=== PATIENT | female | born 2005 | race Caucasian/White ===

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

== ENCOUNTER → 2023-04-01 | Outpatient (CLI) | payer BC, SELFPAY | END | disposition home or self-care (01) | PROVIDERS: Visit Provider Advanced Practice Midwife | DX: O91.119 Abscess of breast associated with pregnancy, unspecified trimester (principal); Z3A.00 Weeks of gestation of pregnancy not specified | CPT/HCPCS: 87070; 87205 ==

== ENCOUNTER 2023-04-28 13:43 | Emergency (ER) | payer BC, SELFPAY ==
[2023-04-28 13:43] VITALS: BP 119/75; PULSE 74; RESP 18; TEMP 36.6; O2SAT 100; BMI 33.6
== END 2023-04-28 14:23 | disposition left against medical advice (07) ==
LOC: ED 14:28
DX: M79.646 Pain in unspecified finger(s) (principal)

== ENCOUNTER 2023-05-12 16:30 | Emergency (ER) | payer BC, SELFPAY ==
[2023-05-12 16:32] VITALS: BP 129/81; PULSE 88; RESP 16; TEMP 36.2; O2SAT 98; BMI 33.1
--- NOTE | 2023-05-12 16:59 | EX.ED.DYSGE1 ---
HPI History of Present Illness Chief Complaint: Dizziness Informant: patient Onset/Context/Timing Onset: Days (3) Context: Sudden Onset Timing: Intermittent and Lasts (Several minutes) Quality: Spinning Location: Head Worsened by: In the evening Relieved by: Laying down Narrative Narrative: Patient presents with dizziness that has been intermittent over the last 3 days. Patient states it lasts for several minutes when it comes on. Patient describes it as a spinning sensation. Patient states it is worse in the evening. Patient states it is better whenever she lays down. Patient states she has an chiara on her phone that checks her heart rate. Patient states that when she got dizzy last night, her heart rate was 128. Patient denies any fevers or chills. Patient does admit to some pain in her right ear. Patient denies any sore throat or rhinorrhea. Patient denies any chest pain or shortness of breath. [facility] Medical History Anxiety Home Medications levonorgestrel 21 mcg/24 hours (8 yrs) 52 mg intrauterine device (Mirena) 1 device intrauterine ONCE 06/13/20 [History Last Taken Unknown] loratadine 10 mg tablet (Allergy Relief (loratadine)) 20 mg PO BID 10/08/22 [History Last Taken Unknown] omeprazole magnesium 20 mg capsule,delayed release (Acid Director [employer] Software [employer] (omeprazole)) 20 mg PO DAILY 10/08/22 [History Last Taken Unknown] Allergy/AdvReac Type Severity Reaction Status Date / Time Latex, Natural Rubber Allergy Mild Rash Verified 05/12/23 16:34 Family History Grandfather Lupus CVA (cerebral vascular accident) Other Family history of narcolepsy Social History Smoking Status: Never smoker alcohol intake: former details: occsasionally substance use type: former substance user and marijuana frequency: 3-4 times per week additional social history: 11th grade [employer] ROS ROS ED Constitutional Constitutional ED: Denies chills or fever(s) Eyes Eyes: Denies blurry vision or change in vision ENT ENT ED: Reports ear pain right; Denies rhinorrhea or sore throat Cardiovascular Cardiovascular: Denies chest pain or palpitations Respiratory/Chest Respiratory/Chest: Denies cough or dyspnea Gastrointestinal Gastrointestinal: Denies nausea or vomiting Genitourinary Genitourinary ED: Denies dysuria or hematuria Musculoskeletal Musculoskeletal: Denies back pain or neck pain Integumentary Denies abscess or rash Neurologic Neurologic: Denies headache(s) or weakness Allergic/Immunologic Allergic/Immunologic ED: Denies mouth swelling or urticaria EXAM Physical Exam Const Vital Signs: 05/12/23 16:32 05/12/23 16:39 Temperature 97.1 F L Temperature Source Temporal Pulse Rate 88 Respiratory Rate 16 Respiratory Pattern Normal Blood Pressure 129/81 H Blood Pressure Mean 97 Pulse Ox 98 Oxygen Delivery Method Room Air Positive well nourished and well developed General Appearance ED: well developed HEENT Reports moist mucous membranes Eyes PERRL and EOMs intact bilaterally Eyes Narrative: There is no nystagmus noted. Neck supple and no JVD Resp normal respiratory effort and clear to auscultation bilaterally Cardio regular rate, regular rhythm and no murmurs GI normal to inspection, nondistended, normoactive bowel sounds and non-tender Palpation: soft Extremity normal to inspection General Extremety ED: Negative for edema or tenderness General Extremity: Negative for edema Neuro oriented x3, CN's II-XII intact bilaterally and no sensory deficits noted Sensorium / Orientation: alert Motor Exam: strength 5/5 throughout Psych mental status grossly normal Skin no rashes or lesions noted MDM MDM MDM Narrative Medical decision making narrative: Differential diagnosis includes electrolyte abnormality, acute kidney injury, anemia, vertigo, and labyrinthitis. CBC will be obtained to assess for leukocytosis and anemia. Basic metabolic profile will be obtained to assess for electrolyte abnormality and renal function. Urinalysis will be obtained to assess for urinary tract infection. Urine hCG will be obtained to assess for . Treatment and Re-Evaluation :: Patient was ordered IV fluids. Patient did not want any laboratory or IVs done at this time. Patient states she wants to go home and rest. Patient was instructed to drink plenty of fluids. Patient was instructed to follow-up with her primary care physician for further evaluation. Patient was instructed return if worse in any way. Patient understood and was agreeable with the plan. All questions were answered. Discharge Plan Triage Chief Complaint: Dizziness ED Provider: Deandre Upton Dx/Rx/DC Orders Clinical Impression: Dizziness Instructions: ED Dizziness, Uncertain Cause Prescriptions: No Action levonorgestrel 20 mcg/24 hours (5 yrs) 52 mg intrauterine device 20 mcg/24 hours (5 yrs) 52 mg intrauterine device 1 device intrauterine ONCE Rx Instructions: as a single dose loratadine [Allergy Relief (loratadine)] 10 mg tablet 20 mg PO BID omeprazole magnesium [Acid Director Of Software Development (omeprazole)] 20 mg capsule,delayed release(DR/EC) 20 mg PO DAILY Primary Care Provider: Care Physician,No Primary Referrals: Care Physician,No Primary [Primary Care Provider] - Disposition Disposition: Home, Self Care Discharge Date/Time: 05/12/23 17:17
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
== END 2023-05-12 17:17 | disposition home or self-care (01) ==
PROVIDERS: Emergency Provider Emergency Medicine; Visit Provider Emergency Medicine
DX: R42 Dizziness and giddiness (principal); Z79.3 Long term (current) use of hormonal contraceptives
CPT/HCPCS: 99281; 99282

== ENCOUNTER → 2023-08-19 | Outpatient (CLI) | payer BC, SELFPAY | END | disposition home or self-care (01) | LOC: LABSPEC 15:11 | PROVIDERS: Referring Provider Obstetrics & Gynecology; Visit Provider Obstetrics & Gynecology | DX: R30.0 Dysuria (principal) | CPT/HCPCS: 87077; 87086; 87088; 87186 ==

== ENCOUNTER → 2023-08-27 | Outpatient (CLI) | payer BC, SELFPAY ==
--- NOTE | 2023-08-27 16:38 | US_ITS ---
STUDY: ULTRASOUND OF THE FEMALE PELVIS - LIMITED REASON FOR EXAM: Female, 17 years old pelvic pain TECHNIQUE: Transabdominal and Transvaginal TECHNICAL QUALITY: Adequate. COMPARISON: 10/16/2022 FINDINGS: The uterus is anteverted and is in a midline position. The uterus measures 8.1 x 5.3 x 3.6 cm. Normal uterine cervix. The endometrium measures 6 mm in thickness, and is hyperechoic. There is no demonstrated endometrial mass. There is no demonstrated myometrial mass. Intrauterine device within the endometrium. The right ovary measures 3.9 x 3.2 x 3.7 cm. 3.2 cm round, anechoic mass with increased transmission consistent with a corpus luteum cyst. There is no visualized right adnexal mass or complex lesion. There is normal arterial and normal venous vascularity. The left ovary measures 3.0 x 1.9 x 1.8 cm. There is no left ovarian cyst or ovarian mass. There is no visualized left adnexal mass or complex lesion. There is normal arterial and normal venous vascularity. There is minimal fluid in the cul-de-sac. US/Transvaginal Non- IMPRESSION: 3.2 cm right ovarian corpus luteum cyst. Electronically Signed: Portillo Wilkes MD at 19:46 EST ,
--- OUTSIDE RECORDS SUMMARY | 2023-08-27 17:14 | XMS RPT_ITS | CCD ---
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 Name Role Phone Benjaminl, Nilton M Primary Care Provider [phone] PLAYL, NILTON M Primary Care Unavailable PLAYL, NILTON M Primary Care Unavailable JESSICA DEAN Referring Unavailable PLAYL, NILTON M Primary Care Unavailable ANGELA BORRERO Attending Unavailable PLAYL, NILTON Primary Care Unavailable Playl Nilton YBARRA Primary Care Provider REFERRED, SELF Attending Unavailable REFERRED, SELF Referring Unavailable PLAYL, NILTON M Primary Care Unavailable REFERRED, SELF Referring Unavailable PLAYL, NILTON M Primary Care Unavailable KITA SAXENA Attending Unavailable JESSICA DEAN Referring Unavailable PLAYL, NILTON M Primary Care Unavailable JESSICA DEAN Attending Unavailable JESSICA DEAN Attending Unavailable REFERRED, SELF Referring Unavailable PLAYL, NILTON M Primary Care Unavailable JESSICA DEAN Attending Unavailable REFERRED, SELF Referring Unavailable PLAYL, NILTON M Primary Care Unavailable Playl, Nilton Primary Care Provider Becky Addison APRN.CNP Primary Care Provider Generic Provider , No Assigned Pcp Primary Car e Provider Unavailable FROYLAN SAHNI Attending Unavailable GENERIC PROVIDER, NO ASSIGNED PCP Primary Care Unavailable REKHA HICKS Attending Unavailable PLAYL, NILTON M Primary Care Unavailable PLAYL, NILTON M Referring Unavailable REKHA HICKS Attending Unavailable PLAYL, NILTON M Primary Care Unavailable PLAYL, NILTON M Attending Unavailable PLAYL, NILTON M Primary Care Unavailable BECKY ADDISON Primary Care Unavailable DINA ANGELA Primary Care Unavailable PLAYL, NILTON M Primary Care Unavailable PLAYL, NILTON M Attending Unavailable PLAYL, NILTON M Primary Care Unavailable Allergies Allergy Classification Reported Allergen(s) Allergy Type Date of Onset Reaction(s) Facility (11 sources) Latex; Translations: [LATEX] Drug Allergy 2 Hives, Itching, Rash [facility] (7 sources) Sertraline; Translations: [SERTRALINE] Drug Allergy 3 Hives [facility] Work Phone: (4 sources) Latex Allergy to substance 2 Hives, [address] [facility] Medications Current Medications Medication Drug Class(es) Dates Sig (Normalized) Sig (Original) azithromycin 500 mg oral tablet (1 source) Macrolide Antimicrobial Start: 05-21-2022 End: 05-21-2022 take 2 tablets by mouth once azithromycin (ZITHROMAX) 500 mg tablet Take 2 tablets by mouth one time only for 1 dose. 2 tablet 0 05/21/2022 05/21/2022 Active Completed/Discontinued Medications Medication Drug Class(es) Dates Sig (Normalized) Sig (Original) acetaminophen 325 mg oral tablet (5 sources) Start: 12-07-2020 End: 12-07-2020 acetaminophen (TYLENOL) tablet 650 mg Problems Active Problems Problem Classification Problem Date Documented Da te Episodic/Chronic Allergic reactions (14 sources) Atopic dermatitis; Translations: [Atopic dermatitis, unspecified] Onset: 06-12-2016 06-12-2016 Chronic Anxiety disorders (18 sources) Anxiety; Translations: [Anxiety disorder, unspecified] Onset: 02-13-2021 02-13-2021 Chronic Genitourinary symptoms and ill-defined conditions (2 sources) Dysuria; Translations: [Dysuria] Onset: 10-03-2022 Episodic Other female genital disorders (1 source) Unspecified condition associated with female genital organs and menstrual cycle; Translations: [Vaginal burning] Onset: 09-26-2022 Episodic Other female genital disorders (1 source) Other specified noninflammatory disorders of vagina; Translations: [Vaginal itching] Onset: 09-26-2022 Episodic Other gastrointestinal disorders (1 source) Diarrhea; Translations: [Diarrhea, unspecified] Episodic Other upper respiratory infections (3 sources) Viral upper respiratory tract infection; Translations: [Acute upper respiratory infection, unspecified] Episodic Sprains and strains (2 sources) Sprain of right thumb; Translations: [Unspecified sprain of right thumb, initial encounter] 04-28-2023 Episodic Unclassified (2 sources) Contusion of right elbow; Translations: [Contusion of right elbow, initial encounter] Onset: 04-19-2019 04-19-2019 Unclassified (1 source) Cough, unspecified; Translations: [Cough, unspecified] Onset: 06-04-2022 Urinary tract infections (3 sources) Cystitis; Translations: [Cystitis, unspecified without hematuria] Onset: 07-27-2023 07-27-2023 Episodic Past or Other Problems Problem Classification Problem Date Documented Date Episodic/Chronic Allergic reactions (20 sources) Environmental allergy; Translations: [Other allergy status, other than to drugs and biological substances] Onset: 06-25-2014 06-25-2014 Episodic Immunizations and screening for infectious disease (2 sources) Patient encounter status; Translations: [Encounter for immunization] Onset: 05-18-2022 Episodic Other nutritional; endocrine; and metabolic disorders (16 sources) Childhood obesity; Translations: [Body mass index (BMI) pediatric, greater than or equal to 95th percentile for age] Onset: 04-17-2022 04-17-2022 Episodic Other nutritional; endocrine; and metabolic disorders (1 source) Body mass index (BMI) pediatric, greater than or equal to 95th percentile for age; Translations: [BMI (body mass index), pediatric, greater than or equal to 95% for age] Onset: 04-17-2022 Episodic Superficial injury; contusion (6 sources) Contusion of right hand; Translations: [Contusion of right hand, initial encounter] Onset: 04-19-2019 Episodic Results Test Name Value Interpretation Reference Range Facil ity Vital Signs Date Time Vital Sign Value Performing Clinician Facility 07-27-2023 11:32-0500 SaO2% (BldA) [Mass fraction] 96 % Froylan Sahni DO Work Phone: [facility] 07-27-2023 11:19-0500 Body height 160 cm Froylan Sahni DO Work Phone: [facility] 07-27-2023 11:19-0500 Body mass index (BMI) [Ratio] 32.77 kg/m2 Froylan Sahni DO Work Phone: [facility] 07-27-2023 11:19-0500 Body temperature 98.4 [degF] Froylan Sahni DO Work Phone: [facility] 07-27-2023 11:19-0500 Body weight 83.92 kg Froylan Sahni DO Work Phone: [facility] 07-27-2023 11:19-0500 Diastolic blood pressure 74 mm[Hg] Froylan Sahni DO Work Phone: [facility] 07-27-2023 11:19-0500 Heart rate 86 /min Froylan Sahni DO Work Phone: [facility] 07-27-2023 11:19-0500 Respiratory rate 16 /min Froylan Sahni DO Work Phone: [facility] 07-27-2023 11:19-0500 Systolic blood pressure 123 mm[Hg] Froylan Sahni DO Work Phone: [facility] 06-07-2023 15:26-0400 Body temperature 97.81 [degF] Stefany Ruslan YARD FOREMAN.HORIZONTAL BORING MILL SET UP OPERATOR Work Phone: [facility] 06-07-2023 15:26-0400 Body weight 85.46 kg Stefany Ruslan YARD FOREMAN.H[employer]IZONT[employer] BORING MILL SET UP OPERATOR Work Phone: [facility] 06-07-2023 15:26-0400 Diastolic blood pressure 68 mm[Hg] Stefany Ruslan YARD FOREMAN.H[employer]IZONTAL BORING MILL SET UP OPERATOR Work Phone: [facility] 06-07-2023 15:26-0400 Heart rate 91 /min Stefany Ruslan YARD FOREMAN.H[employer]IZONT[employer] B[employer]ING MILL SET UP OPERATOR Work Phone: [facility] 06-07-2023 15:26-0400 Respiratory rate 20 /min Stefany Ruslan YARD FOREMAN.H[employer]IZONT[employer] BORING MILL SET UP OPERATOR Work Phone: [facility] 06-07-2023 15:26-0400 SaO2% (BldA) [Mass fraction] 98 % Stefany Ruslan YARD FOREMAN.H[employer]IZONT[employer] BORING MILL SET UP OPERATOR Work Phone: [facility] 06-07-2023 15:26-0400 Systolic blood pressure 104 mm[Hg] Stefany Lezamak YARD FOREMAN.HORIZONTAL BORING MILL SET UP OPERATOR Work Phone: [facility] 04-28-2023 16:22-0400 Body temperature 98.4 [degF] Duglas Jaquez MD Work Phone: [facility] 04-28-2023 16:22-0400 Diastolic blood pressure 73 mm[Hg] Duglas Jaquez MD Work Phone: [facility] 04-28-2023 16:22-0400 Heart rate 90 /min Duglas Jaquez MD Work Phone: [facility] 04-28-2023 16:22-0400 Respiratory rate 18 /min Duglas Jaquez MD Work Phone: [facility] 04-28-2023 16:22-0400 SaO2% (BldA) [Mass fraction] 98 % Duglas Jaquez MD Work Phone: [facility] 04-28-2023 16:22-0400 Systolic blood pressure 122 mm[Hg] Duglas Jaquez MD Work Phone: [facility] 01-14-2023 14:20-0400 Body height 159.8 cm Denice Ball YARD FOREMAN.H[employer]IZONT[employer]ORING M[employer] SET UP OPERATOR Work Phone: [facility] 01-14-2023 14:20-0400 Body temperature 97.81 [degF] Denice Ball YARD FOREMAN.H[employer]IZONTAL BORING MILL SET UP OPERATOR Work Phone: [facility] 01-14-2023 14:20-0400 Body weight 88.41 kg Denice Ball YARD FOREMAN.HORIZONTAL BORING MILL SET UP OPERATOR Work Phone: [facility] 01-14-2023 14:20-0400 Diastolic blood pressure 76 mm[Hg] Denice Ball YARD FOREMAN.HORIZONTAL BORING MILL SET UP OPERATOR Work Phone: [facility] 01-14-2023 14:20-0400 Heart rate 86 /min Denice Ball YARD FOREMAN.H[employer]IZ[employer]AL B[employer]ING MILL SET UP OPERATOR Work Phone: [facility] 01-14-2023 14:20-0400 Respiratory rate 19 /min Denice Ball YARD FOREMAN.H[employer]IZ[employer] B[employer]ING MILL SET UP OPERATOR Work Phone: [facility] 01-14-2023 14:20-0400 SaO2% (BldA) [Mass fraction] 97 % Denice Alonzo APRN.HORIZONTAL BORING MILL SET UP OPERATOR Work Phone: [facility] 01-14-2023 14:20-0400 Systolic blood pressure 121 mm[Hg] Denice Alonzo APRN.HORIZONTAL BORING MILL SET UP OPERATOR Work Phone: [facility] 10-08-2022 15:18-0500 Body height 160 cm Nilton oTny MD Work Phone: [facility] 10-08-2022 15:18-0500 Body mass index (BMI) [Percentile] Per age and sex 95.7 % Nilton Tony MD Work Phone: [facility] 10-08-2022 15:18-0500 Body temperature 98.4 [degF] Nilton Tony MD Work Phone: [facility] 10-08-2022 15:18-0500 Body weight 81.38 kg Nilton Tony MD Work Phone: [facility] 10-08-2022 15:18-0500 Heart rate 90 /min Nilton Tony MD Work Phone: [facility] 10-08-2022 15:18-0500 Respiratory rate 18 /min Nilton Tony MD Work Phone: [facility] 10-07-2022 09:11-0500 Body weight 81.65 kg Rekha Hicks MD Work Phone: [facility] 10-07-2022 09:11-0500 Diastolic blood pressure 76 mm[Hg] Rekha Hicks MD Work Phone: [facility] 10-07-2022 09:11-0500 Heart rate 75 /min Rekha Hicks MD Work Phone: [facility] 10-07-2022 09:11-0500 SaO2% (BldA) [Mass fraction] 97 % Rekha Hicks MD Work Phone: [facility] 10-07-2022 09:11-0500 Systolic blood pressure 117 mm[Hg] Rekha Hicks MD Work Phone: [facility] 09-02-2022 09:45-0500 Diastolic blood pressure 78 mm[Hg] Rekha Hicks MD Work Phone: [facility] 09-02-2022 09:45-0500 Heart rate 73 /min Rekha Hicks MD Work Phone: [facility] 09-02-2022 09:45-0500 SaO2% (BldA) [Mass fraction] 97 % Rekha Hicks MD Work Phone: [facility] 09-02-2022 09:45-0500 Systolic blood pressure 126 mm[Hg] Rekha Hicks MD Work Phone: [facility] 08-21-2022 16:26-0500 Body temperature 97.5 [degF] Nilton Tony MD Work Phone: [facility] 08-21-2022 16:26-0500 Body weight 83.23 kg Nilton Tony MD Work Phone: [facility] 08-21-2022 16:26-0500 Heart rate 84 /min Nilton Tony MD Work Phone: [facility] 08-21-2022 16:26-0500 Respiratory rate 18 /min Nilton Tony MD Work Phone: [facility] 05-19-2022 13:45-0400 Body temperature 97.7 [degF] Nilton Tony MD Work Phone: [facility] 05-19-2022 13:45-0400 Body weight 80.38 kg Nilton Tony MD Work Phone: [facility] 05-19-2022 13:45-0400 Diastolic blood pressure 60 mm[Hg] Nilton Tony MD Work Phone: [facility] 05-19-2022 13:45-0400 Heart rate 72 /min Nilton Tony MD Work Phone: [facility] 05-19-2022 13:45-0400 Respiratory rate 20 /min Nilton Tony MD Work Phone: [facility] 05-19-2022 13:45-0400 Systolic blood pressure 102 mm[Hg] Nilton Tony MD Work Phone: [facility] 04-17-2022 13:12-0400 Body height 161.2 cm Nilton Tony MD Work Phone: [facility] 04-17-2022 13:12-0400 Body mass index (BMI) [Percentile] Per age and sex 95.32 % Nilton Tony MD Work Phone: [facility] 04-17-2022 13:12-0400 Body temperature 98.2 [degF] Nilton Tony MD Work Phone: [facility] 04-17-2022 13:12-0400 Body weight 80.51 kg Nilton Tony MD Work Phone: [facility] 04-17-2022 13:12-0400 Diastolic blood pressure 62 mm[Hg] Nilton Tony MD Work Phone: [facility] 04-17-2022 13:12-0400 Heart rate 80 /min Nilton Tony MD Work Phone: [facility] 04-17-2022 13:12-0400 Respiratory rate 18 /min Nilton Tony MD Work Phone: [facility] 04-17-2022 13:12-0400 Systolic blood pressure 112 mm[Hg] Nilton Tony MD Work Phone: [facility] 12-07-2020 16:43-0400 Body temperature 98.1 [degF] Rodrick Figueroa MD Work Phone: [facility] Work Phone: 12-07-2020 16:43-0400 Body weight 62.3 kg Rodrick Figueroa MD Work Phone: [facility] Work Phone: 12-07-2020 16:43-0400 Diastolic blood pressure 79 mm[Hg] Rodrick Figueroa MD Work Phone: [facility] Work Phone: 12-07-2020 16:43-0400 Heart rate 91 /min [facility] Work Phone: 12-07-2020 16:43-0400 Respiratory rate 12 /min [facility] Work Phone: 12-07-2020 16:43-0400 SaO2% (BldA) [Mass fraction] 100 % [facility]: 12-07-2020 16:43-0400 Systolic blood pressure 116 mm[Hg] [facility] Work Phone: 04-19-2019 22:11-0400 Body Temperature 98.6 [degF] [place], [place] 04-19-2019 22:11-0400 Body [facility] 57.8 [facility] [place] 04-19-2019 22:11-0400 BP Diastolic 81 mm[Hg] [facility] [place] 04-19-2019 22:11-0400 BP Systolic 129 mm[Hg] [facility] [place] [place] 04-19-2019 22:11-0400 Pulse (Heart Rate) 75 /min [place], [place] 04-19-2019 22:11-0400 Pulse Oximetry 100 % [place], [place] 04-19-2019 22:11-0400 Respiratory Rate 18 /min [place] Encounters Encounter Date Encounter Type Care Provider Facility Start: 07-27-2023 End: 07-27-2023 Emergency department patient visit FROYLAN SAHNI [facility] Start: 07-27-2023 End: 07-27-2023 Emergency department patient visit Froylan Sahni DO Work Phone: [facility] Emergency Medicine Procedures Date Procedure Procedure Detail Performing Clinician Start: 07-27-2023 Bacteria identified in Urine by Culture FROYLAN SAHNI Start: 07-27-2023 EXTRA URINE GIRON TUBE S WILLY SAHNI Start: 07-27-2023 HCG, URINE, QUALITATIVE FROYLAN SAHNI Start: 07-27-2023 MICROSCOPIC ONLY, URINE FROYLAN SAHNI Start: 07-27-2023 URINALYSIS WITH REFL EX MICROSCOPIC AND CULTURE FROYLAN SAHNI Start: 07-27-2023 EXTRA URINE GIRON TUBE S willy Sahni DO Work Phone: Start: 07-27-2023 Urinalysis complete W Reflex Culture panel - Urine Froylan Sahni DO Work Phone: Start: 07-27-2023 Urinalysis microscop ic panel - Urine Qualitative by Automated Froylan Sahni DO Work Phone: Start: 07-27-2023 Urine test visual color cmprsn meths Froylan Sahni DO Work Phone: Start: 07-27-2023 Urnls dip stick/tabl et reagent auto microscopy Froylan Sahni DO Work Phone: Start: 06-07-2023 STREP A MOLECULAR (POC) Stefany Mercer APRN.HORIZONTAL BORING MILL SET UP OPERATOR Work Phone: Start: 04-28-2023 Radex fingr minimum 2 views Duglas Jaquez MD Work Phone: Start: 04-17-2022 INFLUENZA VACCINE QUADRIVALENT 6 MO - 64 YRS IM Nilton Tony MD Work Phone: Start: 04-17-2022 Adult depression screening assessment Nilton Tony MD Work Phone: Start: 12-07-2020 Radex hand minimum 3 views Rodrick Figueroa MD Work Phone: Start: 04-19-2019 Radex elbow complete minimum 3 views Mikey Mcdaniels Work Phone: Laboratory test resu lt abnormal Abnormal laboratory test result Nilton Tony MD Work Phone: Plan of Treatment Date Care Activity Detail Author Start: 10-17-2053 Zoster Vaccines (1 of 2) Zoste r Vaccines (1 of 2) [facility] Start: 12-16-2025 DTaP/Tdap/Td Vaccine s (7 - Td or Tdap) DTaP/Tdap/Td Vaccines (7 - Td or Tdap) [facility] Start: 12-16-2025 Urine microalbumin profile [facility] Start: 09-26-2023 CHLAMYDIA SCREENING (18-24) CHLAMYDIA SCREENING (18-24) [facility] Start: 09-26-2023 GC (GONORRHEA) SCREE BARRINGTON (18-24) GC (GONORRHEA) SCREENING (18-24) [facility] Start: 05-18-2023 CHLAMYDIA SCREENING (18-24) CHLAMYDIA SCREENING (18-24) [facility] Start: 05-18-2023 GC (GONORRHEA) SCREE BARRINGTON (18-24) GC (GONORRHEA) SCREENING (18-24) [facility] Start: 04-17-2023 Adult depression screening assessment DEPRESSION SCREENING [facility] Start: 04-16-2023 Covid-19 Vaccine ( season) Covid-19 Vaccine ( season) [facility] Start: 04-16-2023 Influenza vaccination Influenza Vacc ine (#1) [facility] Start: 10-08-2022 End: 10-08-2023 Fasting glucose [Mass/volume] in Serum or Plasma GLUCOSE FASTING BLD Lab Routine BMI (body mass index), pediatric, greater than or equal to 95% for age Expected: 10/08/2022, Expires: 10/08/2023 [facility] Work Phone: Immunizations Immunization Date Immunization Notes Care Provider Fa cili 04-17-2022 influenza, injectabl e, quadrivalent, contains preservative Nilton Tony MD Work Phone: [facility] 04-17-2022 influenza virus vacc ine, unspecified formulation Duglas Jaquez MD Work Phone: [facility] 02-01-2021 COVID-19 vaccine, ag e 12+ yr ([employer] - PURPLE TOP) Nilton Tony MD Work Phone: [facility] 01-11-2021 COVID-19 vaccine, ag e 12+ yr ([employer] - PURPLE TOP) Nilton Tony MD Work Phone: [facility] 07-27-2020 influenza, injectabl e, quadrivalent, preservative free Nilton Tony MD Work Phone: [facility] 06-24-2020 influenza, seasonal, injectable Nilton Tony MD Work Phone: [facility] 03-08-2020 meningococcal polysaccharide (groups A, C, Y and W-135) diphtheria toxoid conjugate vaccine (MCV4P) Nilton Tony MD Work Phone: [facility] 08-17-2019 influenza, injectabl e, quadrivalent, preservative free Nilton Tony MD Work Phone: [facility] 04-26-2018 influenza, injectabl e, quadrivalent, contains preservative Nilton Tony MD Work Phone: [facility] Work Phone: 06-11-2017 influenza, injectabl e, quadrivalent, preservative free Nilton Tony MD Work Phone: [facility] Work Phone: 05-15-2017 influenza, seasonal, injectable Nilton Tony MD Work Phone: [facility] 06-12-2016 Human Papillomavirus 9-valent vaccine Nilton Tnoy MD Work Phone: [facility] 06-12-2016 influenza, injectabl e, quadrivalent, contains preservative Nilton Tony MD Work Phone: [facility] 12-17-2015 Human Papillomavirus 9-valent vaccine Nilton Tony MD Work Phone: [facility] 12-17-2015 meningococcal polysaccharide (groups A, C, Y and W-135) diphtheria toxoid conjugate vaccine (MCV4P) Nilton Tony MD Work Phone: [facility] 12-17-2015 tetanus toxoid, redu judd diphtheria toxoid, and acellular pertussis vaccine, adsorbed Nilton Tony MD Work Phone: [facility] 06-20-2015 influenza, injectabl e, quadrivalent, contains preservative Nilton Tony MD Work Phone: [facility] Work Phone: 06-04-2014 influenza, live, intranasal, quadrivalent Nilton Tony MD Work Phone: [facility] Work Phone: 08-01-2012 influenza virus vacc ine, live, attenuated, for intranasal use Nilton Tony MD Work Phone: [facility] 05-31-2010 influenza virus vacc ine, live, attenuated, for intranasal use Nilton Tony MD Work Phone: [facility] Work Phone: 07-18-2009 novel Influenza-H1N1 -09, live virus for nasal administration Nilton Tony MD Work Phone: [facility] 05-30-2009 influenza virus vacc ine, live, attenuated, for intranasal use Nilton Tony MD Work Phone: [facility] Work Phone: 11-05-2008 diphtheria, tetanus toxoids and acellular pertussis vaccine Nilton Tony MD Work Phone: [facility] Work Phone: 11-05-2008 measles, mumps and rubella virus vaccine Nilton Tony MD Work Phone: [facility] Work Phone: 11-05-2008 poliovirus vaccine, inactivated Nilton Tony MD Work Phone: [facility] Work Phone: 11-05-2008 varicella virus vaccine Blade Tony MD Work Phone: [facility] Work Phone: 07-04-2008 influenza virus vacc ine, unspecified formulation Nilton Tony MD Work Phone: [facility] Work Phone: 04-14-2008 hepatitis A vaccine, unspecified formulation Nilton Tony MD Work Phone: [facility] Work Phone: 06-30-2007 influenza virus vacc ine, unspecified formulation Nilton Tony MD Work Phone: [facility] Work Phone: 11-08-2006 hepatitis A vaccine, unspecified formulation Nilton Tony MD Work Phone: [facility] Work Phone: 06-14-2006 influenza virus vacc ine, unspecified formulation Nilton Tony MD Work Phone: [facility] Work Phone: 02-27-2005 diphtheria, tetanus toxoids and acellular pertussis vaccine Nilton Tony MD Work Phone: [facility] Work Phone: 02-27-2005 haemophilus influenz ae type b vaccine, HbOC conjugate Nilton Tony MD Work Phone: [facility] Work Phone: 10-20-2004 measles, mumps and rubella virus vaccine Nilton Tony MD Work Phone: [facility] Work Phone: 10-20-2004 pneumococcal conjuga te vaccine, 7 valent Nilton Tony MD Work Phone: [facility] Work Phone: 10-20-2004 varicella virus vaccine Blade Tony MD Work Phone: [facility] Work Phone: 07-21-2004 influenza virus vacc ine, unspecified formulation Nilton Tony MD Work Phone: [facility] Work Phone: 06-12-2004 influenza virus vacc ine, unspecified formulation Nilton Tony MD Work Phone: [facility] Work Phone: 05-01-2004 DTaP-hepatitis B and poliovirus vaccine Nilton Tony MD Work Phone: [facility] Work Phone: 05-01-2004 haemophilus influenz ae type b vaccine, HbOC conjugate Nilton Tony MD Work Phone: [facility] Work Phone: 05-01-2004 pneumococcal conjuga te vaccine, 7 valent Nilton Tony MD Work Phone: [facility] Work Phone: 02-25-2004 diphtheria, tetanus toxoids and acellular pertussis vaccine Nilton Tony MD Work Phone: [facility] Work Phone: 02-25-2004 haemophilus influenz ae type b vaccine, HbOC conjugate Nilton Tony MD Work Phone: [facility] Work Phone: 02-25-2004 poliovirus vaccine, inactivated Nilton Tony MD Work Phone: [facility] Work Phone: 2003 DTaP-hepatitis B and poliovirus vaccine Nilton Tony MD Work Phone: [facility] Work Phone: 2003 haemophilus influenz ae type b vaccine, HbOC conjugate Nilton Tony MD Work Phone: [facility] Work Phone: 2003 pneumococcal conjuga te vaccine, 7 valent Nilton Tony MD Work Phone: [facility] Work Phone: 2003 hepatitis B vaccine, pediatric or pediatric/adolescent dosage Nilton Tony MD Work Phone: [facility] Work Phone: Payers Date Payer Category Payer Worker's Compensation GENERIC [employer] RK[employer]' COMP GENERIC WORKERS' COMP [id number] 2023-Present [phone] [place] [address] Worker's Comp [id number] 2022 Unknown [id number] 2013 Unknown [id number] 2013 Unknown [id number] 2003 Unknown [id number] 2003 Unknown [id number] 2005 Unknown [id number] 2003 Unknown [id number] 2003 Unknown [id number] 2003 Unknown [id number] Social History Date Type Detail Facility Start: 04-19-2019 End: 07-27-2023 Tobacco smoking status WAIS Never smoker [facility] Start: 04-19-2019 End: 02-09-2023 Alcohol intake [place] Start: 2003 Sex Assigned At Not on file [place], [place] Start: 12-07-2020 End: 07-27-2023 Tobacco use and exposure Never used [facility] Start: 12-07-2020 End: 04-28-2023 Alcohol intake Current non-drinker of alcohol (finding) [facility] Work Phone: Start: 04-07-2022 End: 07-27-2023 Exposure to SARS-CoV-2 (event) Not sure [facility] Start: 04-17-2022 Alcohol intake Not Asked [facility] Start: 04-17-2022 End: 07-29-2022 History SDOH Alcohol Frequency 1 [facility] Start: 04-17-2022 End: 07-29-2022 History SDOH Alcohol Std Drinks 0 [facility] Start: 04-17-2022 End: 07-29-2022 History SDOH Social Connections Phone 5 [facility] Start: 04-17-2022 End: 07-29-2022 History SDOH Social Connections Get Together 3 [facility] Start: 04-17-2022 End: 07-29-2022 History SDOH Social Connections Membership 2 [facility] Start: 04-17-2022 End: 07-29-2022 History SDOH Social Connections Living 98 [facility] Start: 04-07-2022 Tobacco Comment quit [facility] Start: 2005 Sex Assigned At Female [facility] Start: 05-19-2022 End: 06-07-2023 Alcohol intake Ex-drinker (finding) [facility] Start: 05-25-2022 End: 06-04-2022 Exposure to SARS-CoV-2 (event) Unable to assess [facility] Start: 07-29-2022 History SDOH Social Connections Living 7 [facility] Start: 07-29-2022 History SDOH Housing Places Lived 4 [facility] Start: 10-02-2022 End: 02-09-2023 History of Social function [facility] How often to you hav e a drink containing alcohol? Never [facility] Average Number of Drinks Not on file [facility] Do you belong to any clubs or organizations such as judaism groups, unions, fraternal or athletic groups, or school groups? No [facility] Are you now , , , , never or living with a partner? Never [facility] Do you feel stress - tense, restless, nervous, or anxious, or unable to sleep at night because your mind is troubled all the time - these days [OSQ] To some extent [facility] (I/We) worried whealyse er (my/our) food would run out before (I/we) got money to buy more. Never true [facility] At any time in the p ast 12 months, were you homeless or living in fci [including now]? Yes [facility] Start: 01-30-2021 Gender identity Identifies as female gender (finding) [facility] Start: 01-30-2021 Sexual orientation Heterosexual (finding) [facility] Clinical Notes 04-26-2018 to 07-27-2023 Froylan Sahni DO - 07/27/2023 11:17 AM Theresa Sahni DO 07/27/2023 11:17 AM ESTConsultation (Routine) - Authorized Note Date & Type Note Facility 12-12-2023 Emergency department Note HPI Chief Complaint Patient presents with Urinary Frequency Pt has the urge to urinate frequently. Pt stated she was seen by a physician recently and was being treated for a UTI but had to leave [place] for emergency purposes and has not been able to get her medication filled. Pt also has yellow and green discharge from her vagina. Flank Pain Pt is c/o right flank pain radiating to her back. Patient presents to the emergency department secondary to dysuria. The patient states that she has had frequency, urgency, and hesitancy for 2 months. She was residing in [place], living with a boyfriend, up until today. She states that last week she was seen in an emergency room by an OB physician who attempted to move her IUD, which was placed 3 years ago, but was unable to and the patient was instructed to follow-up to have it surgically removed. Additionally, she was seen at an urgent care yesterday, had blood work and a urinalysis, and was prescribed an antibiotic out of concern for UTI however she did not get it filled. She left the state of [place] and is now residing locally with her grandmother requesting treatment. 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 No family history on file. Social History Tobacco Use Smoking status: Never Smokeless tobacco: Never Vaping Use Vaping Use: Not on file Substance Use Topics Alcohol use: Not on file Drug use: Not on file Physical Exam ED Triage Vitals [07/27/23 1119] Temp Heart Rate Resp BP 36.9 C (98.4 F) 86 16 123/74 SpO2 Temp Source Heart Rate Source Patient Position 96 % Tympanic Monitor Sitting BP Location FiO2 (%) Left arm -- Physical Exam Vitals and nursing note reviewed. Constitutional: General: She is not in acute distress. Appearance: Normal appearance. She is normal weight. She is not ill-appearing, toxic-appearing or diaphoretic. Comments: Sitting up in bed text messaging on her telephone. Not displaying any renal colic. Appears quite well. HENT: Head: Normocephalic and atraumatic. Nose: Nose normal. No rhinorrhea. Neck: Comments: Trachea is midline Cardiovascular: Rate and Rhythm: Normal rate and regular rhythm. Heart sounds: No murmur heard. Pulmonary: Effort: Pulmonary effort is normal. Breath sounds: Normal breath sounds. No wheezing. Abdominal: General: Abdomen is flat. Bowel sounds are normal. There is no distension. Palpations: Abdomen is soft. Tenderness: There is no abdominal tenderness. Musculoskeletal: General: Normal range of motion. Cervical back: Normal range of motion. Skin: General: Skin is warm and dry. Findings: No rash. Neurological: General: No focal deficit present. Mental Status: She is alert and oriented to person, place, and time. Mental status is at baseline. Psychiatric: Mood and Affect: Mood normal. Behavior: Behavior normal. Thought Content: Thought content normal. Judgment: Judgment normal. ED Course & MDM Diagnoses as of 07/27/231316 Cystitis Medical Decision Making Patient appears quite well here so I feel she can be discharged with a prescription for Keflex and treated for cystitis on an outpatient basis. She states she has an upcoming appointment to see a SCI[employer] IN[employer] LEADER physician in [facility] tomorrow. She was given additional local referrals to primary care and [employer] as well. Instructed to follow-up as instructed and return for any other ongoing concerns. Procedure Procedures Froylan Sahni DO 07/27/23 1145 Froylan Sahni DO 07/27/23 1317 documented in this encounter [facility] Work Phone: 07-27-2023 Physician Emergency department Note HPI Chief Complaint Patient presents with Urinary Frequency Pt has the urge to urinate frequently. Pt stated she was seen by a physician recently and was being treated for a UTI but had to leave [place] for emergency purposes and has not been able to get her medication filled. Pt also has yellow and green discharge from her vagina. Flank Pain Pt is c/o right flank pain radiating to her back. Patient presents to the emergency department secondary to dysuria. The patient states that she has had frequency, urgency, and hesitancy for 2 months. She was residing in [place], living with a boyfriend, up until today. She states that last week she was seen in an emergency room by an OB physician who attempted to move her IUD, which was placed 3 years ago, but was unable to and the patient was instructed to follow-up to have it surgically removed. Additionally, she was seen at an urgent care yesterday, had blood work and a urinalysis, and was prescribed an antibiotic out of concern for UTI however she did not get it filled. She left the state of [place] and is now residing locally with her grandmother requesting treatment. 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 No family history on file. Social History Tobacco Use Smoking status: Never Smokeless tobacco: Never Vaping Use Vaping Use: Not on file Substance Use Topics Alcohol use: Not on file Drug use: Not on file Physical Exam ED Triage Vitals [07/27/23 1119] Temp Heart Rate Resp BP 36.9 C (98.4 F) 86 16 123/74 SpO2 Temp Source Heart Rate Source Patient Position 96 % Tympanic Monitor Sitting BP Location FiO2 (%) Left arm -- Physical Exam Vitals and nursing note reviewed. Constitutional: General: She is not in acute distress. Appearance: Normal appearance. She is normal weight. She is not ill-appearing, toxic-appearing or diaphoretic. Comments: Sitting up in bed text messaging on her telephone. Not displaying any renal colic. Appears quite well. HENT: Head: Normocephalic and atraumatic. Nose: Nose normal. No rhinorrhea. Neck: Comments: Trachea is midline Cardiovascular: Rate and Rhythm: Normal rate and regular rhythm. Heart sounds: No murmur heard. Pulmonary: Effort: Pulmonary effort is normal. Breath sounds: Normal breath sounds. No wheezing. Abdominal: General: Abdomen is flat. Bowel sounds are normal. There is no distension. Palpations: Abdomen is soft. Tenderness: There is no abdominal tenderness. Musculoskeletal: General: Normal range of motion. Cervical back: Normal range of motion. Skin: General: Skin is warm and dry. Findings: No rash. Neurological: General: No focal deficit present. Mental Status: She is alert and oriented to person, place, and time. Mental status is at baseline. Psychiatric: Mood and Affect: Mood normal. Behavior: Behavior normal. Thought Content: Thought content normal. Judgment: Judgment normal. ED Course & MDM Diagnoses as of 07/27/231316 Cystitis Medical Decision Making Patient appears quite well here so I feel she can be discharged with a prescription for Keflex and treated for cystitis on an outpatient basis. She states she has an upcoming appointment to see a SCI[employer] IN[employer] LEADER physician in [facility] tomorrow. She was given additional local referrals to primary care and [employer] LE[employer]ER as well. Instructed to follow-up as instructed and return for any other ongoing concerns. Procedure Procedures Froylan Sahni DO 07/27/23 1145 Froylan Sahni DO 07/27/23 131 [facility] Work Phone: Referral ID Status Reason Start Date Expiration Date Visits Requested Visits Authorized [id number] Authorized Specialty Services Required 3 07/26/2024 1 1 * Consultation (Routine) - Authorized Specialty Diagnoses / Procedures Referred By Nirmala harrison Referred To Contact Obstetrics and Gynecology Froylan Sahni DO [address] [place] [address] Referral ID Status Reason Start Date Expiration Date Visits Requested Visits Authorized [id number] Authorized Specialty Services Required 3 07/26/2024 1 1 [facility] Work Phone: 1(894) 160-795310-23-2023 NoteHNO ID: [id number] Author: Stefany Mercer APRN.[employer] SET UP OPERATOR Service: ? Author Type: Nurse Practitioner Type: Progress Notes Filed: 06/07/2023 4:03 PM Note Text: Subjective The history is provided by the patient. No shower room attendant was used. LARRY Reagan is a 17 year old female who presents today for CC of right ear pain, sore throat and stuffy nose. This started 3 days ago. She has used no treatment or medications. No known exposure to strep or covid. BP 104/68 Pulse 91 Temp 36.6 ?C (97.8 ?F) Resp 20 Wt 85.5 kg (188 lb 6.4 oz) LMP 08/17/2021 SpO2 98% BMI 33.48 kg/m? Social History Tobacco Use Smoking status: Never Smokeless tobacco: Never Tobacco comments: quit Vaping Use Vaping Use: current everyday user Substances: Nicotine, Flavoring Devices: Disposable Substance Use Topics Alcohol use: Not Currently Drug use: Never PAST MEDICAL HISTORY Diagnosis Date Menstrual syndrome 09/2014 Migraine headache 06/25/2014 Overweight 06/12/2016 Thumb fracture 11/2016 right thumb fx, casted. Viral warts 04/26/2018 I have confirmed and edited as necessary, the [facility] Review of Systems Constitutional: Negative for chills and fever. HENT: Positive for sore throat. Negative for congestion, ear pain and sinus pain. Respiratory: Negative for cough, sputum production, shortness of breath and wheezing. Cardiovascular: Negative for chest pain. Musculoskeletal: Negative for myalgias. Neurological: Negative for headaches. Objective Physical Exam Vitals and nursing note reviewed. HENT: Head: Normocephalic and atraumatic. Right Ear: Ear canal and external ear normal. A middle ear effusion is present. Tympanic membrane is bulging. Left Ear: Ear canal and external ear normal. A middle ear effusion is present. Tympanic membrane is bulging. Nose: Mucosal edema, congestion and rhinorrhea present. Right Sinus: No maxillary sinus tenderness or frontal sinus tenderness. Left Sinus: No maxillary sinus tenderness or frontal sinus tenderness. Mouth/Throat: Pharynx: Uvula midline. Posterior oropharyngeal erythema present. No oropharyngeal exudate. Cardiovascular: Rate and Rhythm: Normal rate and regular rhythm. Heart sounds: Normal heart sounds. Pulmonary: Effort: Pulmonary effort is normal. Breath sounds: Normal breath sounds. Lymphadenopathy: Head: Right side of head: No submental, submandibular or tonsillar adenopathy. Left side of head: No submental, submandibular or tonsillar adenopathy. Cervical: No cervical adenopathy. Skin: General: Skin is warm and dry. Neurological: Mental Status: She is alert and oriented to person, place, and time. Psychiatric: Mood and Affect: Affect normal. ASSESSMENT/PLAN: 1. Sore throat - ICD9: 462, ICD10: J02.9 (primary diagnosis) - suspect viral - Group A strep molecular testing negative - STREP A MOLECULAR (POC) 2. URI with cough and congestion - ICD9: 465.9, ICD10: J06.9 - Discussed viral etiology and rationale for treatment. - Symptomatic treatment with prn analgesia - Supportive care with fluids and rest - The patient may also use warm salt water gargles, throat lozenges and/or OTC throat spray as needed. Diagnosis and treatment plan were discussed and questions were answered to the patient's satisfaction. Pt acknowledged understanding of concepts and follow up plan. Specific signs and symptoms that would indicate the need for higher level of care were discussed in detail warranting prompt ER evaluation. [facility] Mercer APRN.[facility] History of Present illness Narrative* Stefany Mercer APRN.[facility] - 06/07/2023 3:31 PM EDT Subjective The history is provided by the patient. No shower room attendant was used. HPI Jasmyn Reagan is a 17 year old female who presents today for CC of right ear pain, sore throat and stuffy nose. This started 3 days ago. She has used no treatment or medications. No known exposure to strep or covid. BP 104/68 Pulse 91 Temp 36.6 C (97.8 F) Resp 20 Wt 85.5 kg (188 lb 6.4 oz) LMP 08/17/2021 SpO2 98% BMI 33.48 kg/m Social History Tobacco Use Smoking status: Never Smokeless tobacco: Never Tobacco comments: quit Vaping Use Vaping Use: current everyday user Substances: Nicotine, Flavoring Devices: Disposable Substance Use Topics Alcohol use: Not Currently Drug use: Never PAST MEDICAL HISTORY Diagnosis Date Menstrual syndrome 09/2014 Migraine headache 06/25/2014 Overweight 06/12/2016 Thumb fracture 11/2016 right thumb fx, casted. Viral warts 04/26/2018 I have confirmed and edited as necessary, the [facility] Review of Systems Constitutional: Negative for chills and fever. HENT: Positive for sore throat. Negative for congestion, ear pain and sinus pain. Respiratory: Negative for cough, sputum production, shortness of breath and wheezing. Cardiovascular: Negative for chest pain. Musculoskeletal: Negative for myalgias. Neurological: Negative for headaches. Objective Physical Exam Vitals and nursing note reviewed. HENT: Head: Normocephalic and atraumatic. Right Ear: Ear canal and external ear normal. A middle ear effusion is present. Tympanic membrane is bulging. Left Ear: Ear canal and external ear normal. A middle ear effusion is present. Tympanic membrane isbulging. Nose: Mucosal edema, congestion and rhinorrhea present. Right Sinus: No maxillary sinus tenderness or frontal sinus tenderness. Left Sinus: No maxillary sinus tenderness or frontal sinus tenderness. Mouth/Throat: Pharynx: Uvula midline. Posterior oropharyngeal erythema present. No oropharyngeal exudate. Cardiovascular: Rate and Rhythm: Normal rate and regular rhythm. Heart sounds: Normal heart sounds. Pulmonary: Effort: Pulmonary effort is normal. Breath sounds: Normal breath sounds. Lymphadenopathy: Head: Right side of head: No submental, submandibular or tonsillar adenopathy. Left side of head: No submental, submandibular or tonsillar adenopathy. Cervical: No cervical adenopathy. Skin: General: Skin is warm and dry. Neurological: Mental Status: She is alert and oriented to person, place, and time. Psychiatric: Mood and Affect: Affect normal. ASSESSMENT/PLAN: 1. Sore throat - ICD9: 462, ICD10: J02.9 (primary diagnosis) - suspect viral - Group A strep molecular testing negative - STREP A MOLECULAR (POC) 2. URI with cough and congestion - ICD9: 465.9, ICD10: J06.9 - Discussed viral etiology and rationale for treatment. - Symptomatic treatment with prn analgesia - Supportive care with fluids and rest - The patient may also use warm salt water gargles, throat lozenges and/or OTC throat spray as needed. Diagnosis and treatment plan were discussed and questions were answered to the patient's satisfaction. Pt acknowledged understanding of concepts and follow up plan. Specific signs and symptoms that would indicate the need for higher level of care were discussed indetail warranting prompt ER evaluation. Stefany Mercer APRN.[facility] NoteHNO ID: [id number] Author: Dionne Mera APRN.CNP Service: ? Author Type: Nurse Practitioner Type: Progress Notes Filed: 05/12/2023 4:13 PM Note Text: Patient came in with complaints of extreme dizzy spells for the last 3 days. Patient says it usually happens in the evening. Says she has to lay flat on the floor. Patient says her heart rate is increased at the same time. Patient says it continues throughout the entire night does not go away. Patient says her heart rate is in the upper 120s. Patient's never had this happen before. At this time patient is being referred to the emergency department for full evaluation. Patient was okay with this care plan patient prefers to take her self does not want a squad called. [facility]09-13-[facility] Hospital Discharge instructions* Discharge Instructions* Duglas Jaquez MD - 04/28/2023 4:44 PM EDT Images from the original note were not included. Return to Work Form 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 It is your employer's responsibility to determine if restrictions can be accommodated. Today's Date: 04/28/23 Patient Name: Jasmyn Reagan : 2005 Employee may return to work no restrictions on (Date): 05/01/23 Employee may return to work with the following restrictions on (Date): n/a [] No bending [] No twisting/turning [] No squatting [] No climbing [] No prolonged sitting [] No standing longer than __ minutes [] No use of __ hand/arm/shoulder [] No pushing greater than __ pounds [] No pulling greater than __ pounds [] No lifting greater than __ pounds [] No reaching above shoulder height [] Do not operate safety sensitive machinery [] Keep bandage/splint clean and dry Other Restrictions/Comments: __ ED Provider Signature: ____Matthew jaquez Duglas Jaquez MD Work injuries require treatment by a [facility] certified provider. If follow-up care is needed please call one of the [facility] locations below. [place]: [phone], [address], [place] [address] [place]: [phone] [address] [place] [address] [place]: [phone] [place] [address] [place]: [phone], [place] [address] [place]: [phone] [address] [facility], [address], [place] [address] [place]: [phone], [place] [address] * Attachments The following attachments cannot be sent through Care Everywhere. * Sprained Thumb Discharge Instructions (Stateless) documented in this [facility]09-13-2023 Emergency department Note* Duglas Jaquez MD - 04/28/2023 4:07 PM EDT EMERGENCY DEPARTMENT ENCOUNTER Pt Name: Jasmyn Reagan Birthdate 2005 Date of evaluation: 04/28/2023 ED Provider: Duglas Jaquez MD CHIEF COMPLAINT No chief complaint on file. HISTORY OF PRESENT ILLNESS (Location/Symptom, Timing/Onset, Context/Setting, Quality, Duration, Modifying Factors, Severity) Note limiting factors. I wore appropriate PPE for the entirety of this encounter. HPI Jasmyn Reagan is a 17 y.o. who presents to the emergency department with chief complaint of right thumb injury. 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 She does not remember any discrete injury. She states she is out of hairline fracture in herright thumb before and this is how it felt. She states it is painful to move denies any numbness fevers or rash. States she has tried Tylenol and Advil without relief. Nursing Notes were reviewed. Limitations to history: None Outside historians: None REVIEW OF SYSTEMS Review of Systems Constitutional: Negative for fever. Respiratory: Negative for shortness of breath. Cardiovascular: Negative for chest pain. Gastrointestinal: Negative for vomiting. Musculoskeletal: Positive for arthralgias and joint swelling. Skin: Negative for rash. All other systems reviewed and are negative. Pertinent positives and negatives as per HPI. PAST MEDICAL HISTORY History reviewed. No pertinent past medical history. SURGICAL HISTORY History reviewed. No pertinent surgical history. CURRENT MEDICATIONS Previous Medications ACETAMINOPHEN (TYLENOL) 325 MG TABLET Take by mouth. FLUCONAZOLE (DIFLUCAN) 150 MG TABLET Take 1 pill. This will usually resolve symptoms. Repeat every 72 hours if symptoms do no resolve. SERTRALINE (ZOLOFT) 50 MG TABLET Take 100 mg by mouth. ALLERGIES Latex and Sertraline FAMILY HISTORY No family history on file. SOCIAL HISTORY Social History Socioeconomic History Marital status: Single Tobacco Use Smoking status: Never Smokeless tobacco: Never Vaping Use Vaping Use: Every day Substances: Nicotine Substance and Sexual Activity Alcohol use: No Drug use: No SCREENINGS PHYSICAL EXAM ED Triage Vitals Temp Pulse Resp BP -- -- -- -- SpO2 Temp src Heart Rate Source Patient Position -- -- -- -- BP Location FiO2 (%) -- -- Physical Exam Vitals and nursing note reviewed. Constitutional: General: She is not in acute distress. Appearance: She is well-developed. HENT: Head: Normocephalic and atraumatic. Eyes: Conjunctiva/sclera: Conjunctivae normal. Cardiovascular: Rate and Rhythm: Normal rate. Pulmonary: Effort: Pulmonary effort is normal. Musculoskeletal: General: No swelling. Right wrist: No bony tenderness. Right hand: Tenderness and bony tenderness (diffusely to right thumb, no rash or swelling or erythema, passive range of motion fully intact) present. Cervical back: Neck supple. Skin: General: Skin is warm and dry. Capillary Refill: Capillary refill takes less than 2 seconds. Neurological: Mental Status: She is alert. Psychiatric: Mood and Affect: Mood normal. DIAGNOSTIC RESULTS Procedures/EKG: EKG was reviewed by myself. Physician EKG interpretation can be found in [facility] RADIOLOGY (Per Emergency Physician): X-ray right thumb is negative for acute fracture Interpretation per the Radiologist below, if available at the time of this note: XR fingers 2+ views right Final Result 1. Negative radiographs of the right thumb. Report Dictated on Electronically Signed By: Percy Pederson MD Electronically Signed Date/Time: 04/28/2023 4:43 PM EDT ED BEDSIDE ULTRASOUND: Performed by ED Physician - none LABS: Labs Reviewed - No data to display All other labs were within normal range or not returned as of this dictation. 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 Denies any direct trauma. Differential includes overuse sprain tendinitis fracture there is no signs of infection overlying. Plan for an x-ray. Diagnoses as of 04/28/231649 Sprain of right thumb, unspecified site of digit, initial encounter The patient presented with chief complaint of thumb pain. The differential diagnosis associated with this patient's presentation includes above. Our workup consisted of ordering/reviewing: above. Patient is in agreement with this plan. Medications - No data to display REVAL: Patient updated on results negative x-ray plan for brace and outpatient follow- up with occupationalhealth. VLADIMIR instructions recommended. CRITICAL CARE TIME None CONSULTS: None PROCEDURES: Unless otherwise noted below, none Procedures Patients symptoms are consistent with sepsis, severe sepsis, or septic shock (If yes use .sepsiscoremeasure ): no FINAL IMPRESSION 1. Sprain of right thumb, unspecified site of digit, initial encounter DISPOSITION Discharge 04/28/2023 04:47:44 PM PATIENT REFERRED TO: Nilton Tony [address] [facility] [address] Schedule an appointment as soon as possible for a visit As needed DISCHARGE MEDICATIONS: New Prescriptions No medications on file (Comment: Please note this report has been produced using speech recognition software and may contain errors related to that system including errors in grammar, punctuation, and spelling, as well as words and phrases that may be inappropriate. If there are any questions or concerns please feel freeto contact the dictating provider for clarification.) Duglas Jaquez MD (electronically signed) Emergency Medicine Provider Duglas Jaquez MD 09/13/23 1650 * America Gallegos LPN - 04/28/2023 4:07 PM EDT Pt presents to the ED with acute right thumb injury. 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 Pt states when she got in her car, she noticed her thumb hurting. Pt states her pain is 8/10,. Pt was able to walk back to t the unit without any difficulty. Pt call light is within reach. documented in this [facility]09-13-2023 Emergency department Triage note* America Gallegos LPN - 04/28/2023 4:07 PM EDT Pt presents to the ED with acute right thumb injury. 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 Pt states when she got in her car, she noticed her thumb hurting. Pt states her pain is 8/10,. Pt was able to walk back to t the unit without any difficulty. Pt call light is within reach. [id number] Emergency department Note* Duglas Jaquez MD - 04/28/2023 4:07 PM EDT EMERGENCY DEPARTMENT ENCOUNTER Pt Name: Jasmyn Reagan Birthdate 2005 Date of evaluation: 04/28/2023 ED Provider: Duglas Jaquez MD CHIEF COMPLAINT No chief complaint on file. HISTORY OF PRESENT ILLNESS (Location/Symptom, Timing/Onset, Context/Setting, Quality, Duration, Modifying Factors, Severity) Note limiting factors. I wore appropriate PPE for the entirety of this encounter. HPI Jasmyn Reagan is a 17 y.o. who presents to the emergency department with chief complaint of right thumb injury. 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 She does not remember any discrete injury. She states she is out of hairline fracture in herright thumb before and this is how it felt. She states it is painful to move denies any numbness fevers or rash. States she has tried Tylenol and Advil without relief. Nursing Notes were reviewed. Limitations to history: None Outside historians: None REVIEW OF SYSTEMS Review of Systems Constitutional: Negative for fever. Respiratory: Negative for shortness of breath. Cardiovascular: Negative for chest pain. Gastrointestinal: Negative for vomiting. Musculoskeletal: Positive for arthralgias and joint swelling. Skin: Negative for rash. All other systems reviewed and are negative. Pertinent positives and negatives as per HPI. PAST MEDICAL HISTORY History reviewed. No pertinent past medical history. SURGICAL HISTORY History reviewed. No pertinent surgical history. CURRENT MEDICATIONS Previous Medications ACETAMINOPHEN (TYLENOL) 325 MG TABLET Take by mouth. FLUCONAZOLE (DIFLUCAN) 150 MG TABLET Take 1 pill. This will usually resolve symptoms. Repeat every 72 hours if symptoms do no resolve. SERTRALINE (ZOLOFT) 50 MG TABLET Take 100 mg by mouth. ALLERGIES Latex and Sertraline FAMILY HISTORY No family history on file. SOCIAL HISTORY Social History Socioeconomic History Marital status: Single Tobacco Use Smoking status: Never Smokeless tobacco: Never Vaping Use Vaping Use: Every day Substances: Nicotine Substance and Sexual Activity Alcohol use: No Drug use: No SCREENINGS PHYSICAL EXAM ED Triage Vitals Temp Pulse Resp BP -- -- -- -- SpO2 Temp src Heart Rate Source Patient Position -- -- -- -- BP Location FiO2 (%) -- -- Physical Exam Vitals and nursing note reviewed. Constitutional: General: She is not in acute distress. Appearance: She is well-developed. HENT: Head: Normocephalic and atraumatic. Eyes: Conjunctiva/sclera: Conjunctivae normal. Cardiovascular: Rate and Rhythm: Normal rate. Pulmonary: Effort: Pulmonary effort is normal. Musculoskeletal: General: No swelling. Right wrist: No bony tenderness. Right hand: Tenderness and bony tenderness (diffusely to right thumb, no rash or swelling or erythema, passive range of motion fully intact) present. Cervical back: Neck supple. Skin: General: Skin is warm and dry. Capillary Refill: Capillary refill takes less than 2 seconds. Neurological: Mental Status: She is alert. Psychiatric: Mood and Affect: Mood normal. DIAGNOSTIC RESULTS Procedures/EKG: EKG was reviewed by myself. Physician EKG interpretation can be found in [facility] RADIOLOGY (Per Emergency Physician): X-ray right thumb is negative for acute fracture Interpretation per the Radiologist below, if available at the time of this note: XR fingers 2+ views right Final Result 1. Negative radiographs of the right thumb. Report Dictated on Electronically Signed By: Percy Pederson MD Electronically Signed Date/Time: 04/28/2023 4:43 PM EDT ED BEDSIDE ULTRASOUND: Performed by ED Physician - none LABS: Labs Reviewed - No data to display All other labs were within normal range or not returned as of this dictation. 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 Denies any direct trauma. Differential includes overuse sprain tendinitis fracture there is no signs of infection overlying. Plan for an x-ray. Diagnoses as of 04/28/23 1650 Sprain of right thumb, unspecified site of digit, initial encounter The patient presented with chief complaint of thumb pain. The differential diagnosis associated with this patient's presentation includes above. Our workup consisted of ordering/reviewing: above. Patient is in agreement with this plan. Medications - No data to display REVAL: Patient updated on results negative x-ray plan for brace and outpatient follow- up with occupationalhealth. RICE instructions recommended. CRITICAL CARE TIME None CONSULTS: None PROCEDURES: Unless otherwise noted below, none Procedures Patients symptoms are consistent with sepsis, severe sepsis, or septic shock (If yes use .sepsiscoremeasure ): no FINAL IMPRESSION 1. Sprain of right thumb, unspecified site of digit, initial encounter DISPOSITION Discharge 04/28/2023 04:47:44 PM PATIENT REFERRED TO: Nilton Tony [address] [facility] [address] Schedule an appointment as soon as possible for a visit As needed DISCHARGE MEDICATIONS: New Prescriptions No medications on file (Comment: Please note this report has been produced using speech recognition software and may contain errors related to that system including errors in grammar, punctuation, and spelling, as well as words and phrases that may be inappropriate. If there are any questions or concerns please feel freeto contact the dictating provider for clarification.) Duglas Jaquez MD (electronically signed) Emergency Medicine Provider Duglas Jaquez MD 04/28/[address] 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 Author Type: Nurse Practitioner Type: Progress Notes Filed: 01/14/2023 2:36 PM Note Text: This note was created using [email or web address]. Subjective Jasmyn Reagan is a 17 year old female. HPI by patient: Katheryn is a 17 year old presenting to the office with the complaint of URI Started approximately a week ago Associated symptoms include PND, congestion, cough that started today, body aches and ear pain Denies any other concerns Covid Immunization Dates Overdue - COVID-19 VACCINE (3 - Booster for Pfizer series) Overdue since 03/29/2021 02/01/2021 Imm Admin: COVID-19 vaccine, age 12+ yr (PFIZER-BIONTECH - PURPLE TOP) 01/11/2021 Imm Admin: COVID-19 vaccine, age 12+ yr (PFIZER-BIONTECH - PURPLE TOP) Sick contacts: no Smoking history/second hand smoke: no OTC benadryl and another OTC allergy medicine No antibiotic use in the last 60 days. ALLERGIES No Known Allergies Family History Reviewed Including Cardiac Diseases, Psychiatric Diseases, AND Substance Abuse Problem: Hypertension Relation: Paternal Grandfather Age of Onset: (Not Specified) Problem: Hypertension Relation: Maternal Grandmother Age of Onset: (Not Specified) Problem: Heart Relation: Maternal Grandmother Age of Onset: (Not Specified) Problem: Diabetes Relation: Maternal Grandmother Age of Onset: (Not Specified) Problem: Breast Cancer Relation: Maternal Grandmother Age of Onset: (Not Specified) Problem: other (Narcolepsy) Relation: Maternal Grandmother Age of Onset: (Not Specified) Problem: Asthma Relation: Maternal Grandfather Age of Onset: (Not Specified) Problem: Cancer Relation: Maternal Grandfather Age of Onset: (Not Specified) Comment: prostate-in remission Problem: other (Neuropathy) Relation: Maternal Grandfather Age of Onset: (Not Specified) Problem: other (Fibromyalgia) Relation: Maternal Grandfather Age of Onset: (Not Specified) Social History Tobacco Use Smoking status: Never Smokeless tobacco: Never Tobacco comments: quit Vaping Use Vaping Use: current everyday user Substances: Nicotine, Flavoring Devices: Disposable Alcohol use: Not Currently Drug use: Never Review of Systems Constitutional: Negative for chills and fever. HENT: Positive for congestion, ear pain, postnasal drip, rhinorrhea and sore throat. Respiratory: Positive for cough. Cardiovascular: Negative for chest pain. Musculoskeletal: Positive for myalgias. Allergic/Immunologic: Negative for immunocompromised state. Hematological: Negative for adenopathy. Objective BP 121/76 (BP Site: Right Arm, BP Position: Sitting, BP Cuff Size: Regular Adult) Pulse 86 Temp 36.6 ?C (97.8 ?F) (Temporal) Resp 19 Ht 159.8 cm (5' 2.9 ) Wt 88.4 kg (194 lb 14.4 oz) LMP 08/17/2021 SpO2 97% BMI 34.63 kg/m? Physical Exam Vitals and nursing note reviewed. HENT: Right Ear: Tympanic membrane and ear canal normal. Left Ear: Tympanic membrane and ear canal normal. Nose: Congestion and rhinorrhea present. Mouth/Throat: Pharynx: Uvula midline. No oropharyngeal exudate or posterior oropharyngeal erythema. Cardiovascular: Rate and Rhythm: Normal rate and regular rhythm. Heart sounds: Normal heart sounds. Pulmonary: Effort: Pulmonary effort is normal. No respiratory distress. Breath sounds: Normal breath sounds. No stridor. No wheezing, rhonchi or rales. Chest: Chest wall: No tenderness. Lymphadenopathy: Cervical: No cervical adenopathy. Skin: General: Skin is warm and dry. Neurological: Mental Status: She is alert and oriented to person, place, and time. Assessment and Plan ASSESSMENT/PLAN: 1. Viral URI with cough - ICD9: 465.9, ICD10: J06.9 - Discussed viral etiology and rationale for treatment. - Symptomatic treatment with prn analgesia - Supportive care with fluids and rest - [id number] 2 MG-30 MG-10 MG/5 ML ORAL SYRUP - GUAIFENESIN ER 600 MG TABLET, EXTENDED RELEASE 12 HR - OXYMETAZOLINE 0.05 % NASAL SPRAY Denice Alonzo APRN.CNP Medical Decision Making: Problems: Moderate: New problem with uncertain prognosis Data: Unique source(s) for external note(s) reviewed: 1 Risk: Moderate: Drug management Medical Decision Making Level: 4 - [facility]* Patient Instructions* Denice Alonzo APRN.CNP - 01/14/2023 2:35 PM EDT UPPER RESPIRATORY INFECTIONS Most cases are caused by viruses and most cases are mild, temporary, and harmless. Symptoms can last 2 to 3 weeks and can include: nasal congestion, sore throat, coughing, muscles aches, headaches, nausea, diarrhea, fatigue and fever. 1. Drink plenty of fluids. 2. Get lots of rest. 3. Avoid dehydrants such as caffeine and alcohol. 4. Nasal saline is an effective decongestant and be used frequently throughout the day. 5. To loosen phlegm and help coughing, drink plenty of fluids and using a humidifier. 6. For sore throats, it is ok to use cough drops, throat sprays, or gargling warm salt water. 7. Always cover your mouth when you cough or sneeze, and wash your hands frequently. Avoid crowded areas like shopping centers, movies while you are sick so you don't seed cone picker a different virus, or infect others. 8. Avoid exposure to cigarettes or fumes. 9. Avoid irritants such as potpourri, dust, perfumes, scented candles and scented sprays 10. Air conditioning is an effective allergen and irritant avoidance strategy in the spring, summerand fall. 11. Honey is an effective cough suppressant. Try one tsp two to three times per day. The below information is from [employer]cribersletter[employer]: Antibiotics Will rarely help an upper respiratory infections. Antibiotics lead to more resistant infections that are harder to treat. There is little to no benefit to taking antibiotics for most acute upper respiratory tract infections. [facility] History of Present illness Narrative* Denice Alonzo APRN.CNP - 01/14/2023 2:24 PM EDT This note was created using [employer]. Subjective Jasmyn Reagan is a 17 year old female. HPI by patient: Katheryn is a 17 year old presenting to the office with the complaint of URI Started approximately a week ago Associated symptoms include PND, congestion, cough that started today, body aches and ear pain Denies any other concerns Covid Immunization Dates Overdue - COVID-19 VACCINE (3 - Booster for Pfizer series) Overdue since 03/29/2021 02/01/2021 Imm Admin: COVID-19 vaccine, age 12+ yr (PFIZER-BIONTECH - PURPLE TOP) 01/11/2021 Imm Admin: COVID-19 vaccine, age 12+ yr (PFIZER-BIONTECH - PURPLE TOP) Sick contacts: no Smoking history/second hand smoke: no OTC benadryl and another OTC allergy medicine No antibiotic use in the last 60 days. ALLERGIES No Known Allergies Family History Reviewed Including Cardiac Diseases, Psychiatric Diseases, & Substance Abuse Problem: Hypertension Relation: Paternal Grandfather Age of Onset: (Not Specified) Problem: Hypertension Relation: Maternal Grandmother Age of Onset: (Not Specified) Problem: Heart Relation: Maternal Grandmother Age of Onset: (Not Specified) Problem: Diabetes Relation: Maternal Grandmother Age of Onset: (Not Specified) Problem: Breast Cancer Relation: Maternal Grandmother Age of Onset: (Not Specified) Problem: other (Narcolepsy) Relation: Maternal Grandmother Age of Onset: (Not Specified) Problem: Asthma Relation: Maternal Grandfather Age of Onset: (Not Specified) Problem: Cancer Relation: Maternal Grandfather Age of Onset: (Not Specified) Comment: prostate-in remission Problem: other (Neuropathy) Relation: Maternal Grandfather Age of Onset: (Not Specified) Problem: other (Fibromyalgia) Relation: Maternal Grandfather Age of Onset: (Not Specified) Social History Tobacco Use Smoking status: Never Smokeless tobacco: Never Tobacco comments: quit Vaping Use Vaping Use: current everyday user Substances: Nicotine, Flavoring Devices: Disposable Alcohol use: Not Currently Drug use: Never Review of Systems Constitutional: Negative for chills and fever. HENT: Positive for congestion, ear pain, postnasal drip, rhinorrhea and sore throat. Respiratory: Positive for cough. Cardiovascular: Negative for chest pain. Musculoskeletal: Positive for myalgias. Allergic/Immunologic: Negative for immunocompromised state. Hematological: Negative for adenopathy. Objective BP 121/76 (BP Site: Right Arm, BP Position: Sitting, BP Cuff Size: Regular Adult) Pulse 86 Temp36.6 C (97.8 F) (Temporal) Resp 19 Ht 159.8 cm (5' 2.9 ) Wt 88.4 kg (194 lb 14.4 oz) LMP 08/17/2021 SpO2 97% BMI 34.63 kg/m Physical Exam Vitals and nursing note reviewed. HENT: Right Ear: Tympanic membrane and ear canal normal. Left Ear: Tympanic membrane and ear canal normal. Nose: Congestion and rhinorrhea present. Mouth/Throat: Pharynx: Uvula midline. No oropharyngeal exudate or posterior oropharyngeal erythema. Cardiovascular: Rate and Rhythm: Normal rate and regular rhythm. Heart sounds: Normal heart sounds. Pulmonary: Effort: Pulmonary effort is normal. No respiratory distress. Breath sounds: Normal breath sounds. No stridor. No wheezing, rhonchi or rales. Chest: Chest wall: No tenderness. Lymphadenopathy: Cervical: No cervical adenopathy. Skin: General: Skin is warm and dry. Neurological: Mental Status: She is alert and oriented to person, place, and time. Assessment and Plan ASSESSMENT/PLAN: 1. Viral URI with cough - ICD9: 465.9, ICD10: J06.9 - Discussed viral etiology and rationale for treatment. - Symptomatic treatment with prn analgesia - Supportive care with fluids and rest - [id number] 2 MG-30 MG-10 MG/5 ML ORAL SYRUP - GUAIFENESIN ER 600 MG TABLET, EXTENDED RELEASE 12 HR - OXYMETAZOLINE 0.05 % NASAL SPRAY Denice Alonzo APRN.CNP Medical Decision Making: Problems: Moderate: New problem with uncertain prognosis Data: Unique source(s) for external note(s) reviewed: 1 Risk: Moderate: Drug management Medical Decision Making Level: 4 - Moderate [facility] Miscellaneous Notes* Telephone Encounter - Kishor Child RN - 12/03/2022 3:22 PM EDT Patient is already scheduled on January 07. Kishor Child RN * Telephone Encounter - Nilton Tony MD - 12/03/2022 3:13 PM EDT Note the patient is due for medication check in late December. Please be sure this has been scheduled. The following approved medication requests have been transmitted electronically. Requested Prescriptions Signed Prescriptions Disp Refills sertraline (ZOLOFT) 100 mg tablet 90 tablet 0 Sig: TAKE 1 TABLET BY MOUTH EVERY DAY Authorizing Provider: NILTON TONY MD * Telephone Encounter - Kishor Child RN - 12/03/2022 2:36 PM EDT Last WCC: 04/17/2022 Last ADHD / Med Check visit: 10/08/2022 Verify RX Benefits Completed Last medication refill date: 11/05/2022 but pharmacy is asking for a 90 day supply instead of monthly with refills. Requesting 90 day supply Retail pharmacy updated: Completed Patient aware RX will be sent to pharmacy. No need to notify patient. Immunizations due: MENINGOCOCCAL B: Consider based on risk(1 of 2 - Risk Bexsero 2-dose series) Never done COVID-19 VACCINE(3 - Booster for Pfizer series) due on 03/29/2021 HEPATITIS C SCREENING Never done HIV SCREENING Never done DEPRESSION ASSESSMENT Never done Kishor Child RN * Telephone Encounter - Maria Ines Chou LPN - 12/03/2022 2:20 PM EDT Left message for parent to call the office to verify Rx is needed as the request came via pharmacy. documented in [facility] encounterL[facility]02-[facility]23 NoteHNO ID: [id number] Author: Nilton Tony MD Service: ? Author Type: Physician Type: Progress Notes Filed: 10/08/2022 5:21 PM Note Text: The patient was seen for the issues discussed below. Problem list and history reviewed. Allergies reviewed. Medications reviewed. Immunizations reviewed. HISTORY: see history section below PHYSICAL EXAM: On its that light red light GENERAL RECOMMENDATIONS: - Issues discussed in detail. - Symptom relief measures as needed. - Prescriptions, if ordered, are listed below. - Labs and/or X-rays, if ordered or obtained, are listed below. If the final results are not available at the conclusion of this visit, then additional recommendations may be made based on the final results. Note that all x-rays are reviewed by a radiologist before being considered final. - EKG, if ordered or obtained, is reviewed by a technical architect before being considered final. Additional recommendations may be made based on the final results. - Return to clinic should current symptoms (if present) worsen, other problems develop, or as needed. ADDITIONAL AND DICTATED PORTION: ADDITIONAL HISTORY The following Nursing History was reviewed with the family: Patient presents with: Med Check: Med check - Pt has been off Zoloft since last appointment, would like to restart. Jasmyn had been on Zoloft 100 mg daily when she developed urticaria. It was working well at the time. Scared survey from the last anxiety visit (05/19/2022) were excellent. Due to the urticaria and the possibility that it may have been secondary to Zoloft, the Zoloft was weaned away and she was referred to allergy. Allergy evaluation has been performed and she was diagnosed with chronic urticaria. She is now back to restart the Zoloft. She had not had any other potential side effects from the Zoloft. Currently no suicidal ideation present. No current illnesses. No fevers. No eye, ear, nose, throat complaints. Some cough has been present. She feels this is due to a cold. No wheezing, shortness of breath. No vomiting, diarrhea, abdominal pain. No rash or edema. ACTIVE PROBLEM LIST Environmental Allergies Atopic Dermatitis Anxiety Pressure Urticaria Bmi (Body Mass Index), Pediatric, Greater Than Or Equal to 95% for Age Chronic Urticaria PAST MEDICAL HISTORY Diagnosis Date Menstrual syndrome 09/2014 Migraine headache 06/25/2014 Overweight 06/12/2016 Thumb fracture 11/2016 right thumb fx, casted. Viral warts 04/26/2018 PAST SURGICAL HISTORY Procedure Laterality Date NONE ADDITIONAL EXAM / OTHER INFORMATION none ADDITIONAL IMPRESSION / PLAN 1. Anxiety. We will restart the Zoloft at 50 mg daily. In 1 month this will be increased to 100 mg daily. Follow-up in 3 months. We again discussed that SSRI medications can increase suicidal ideation, and should she have any self-harm thoughts then she would need to be seen immediately by a crisis evaluation team in the emergency room. 2. Last year she had had several labs ordered due to her elevated BMI. These were reordered today. She also has pending labs (still to be drawn) from August of this year. Orders Placed This Encounter LIPID PANEL BASIC Standing Status: Future Standing Expiration Date: 10/08/2023 Scheduling Instructions: Patient must be Fasting 10-12 hours prior to having blood drawn. (Water is permitted) GLUCOSE FASTING BLD Standing Status: Future Standing Expiration Date: 10/08/2023 Scheduling Instructions: Patient must be Fasting 10-12 hours prior to having blood drawn. (Water is permitted) sertraline (ZOLOFT) 50 mg tablet Sig: Take 1 tablet by mouth once daily. Dispense: 30 tablet Refill: 0 sertraline (ZOLOFT) 100 mg tablet Sig: Take 1 tablet by mouth once daily. Dispense: 30 tablet Refill: 1 I spent a total of 20-29 minutes on the date of service. This included preparing to see the patient; [id number] patient care; obtaining and/or reviewing separately obtained history; performing a medically appropriate examination; counseling and educating the patient/family/caregiver; and completing clinical documentation. As applicable, this also included ordering medications, tests, or procedures; independently interpreting results; communicating results to the patient/family/caregiver; and care coordination (not separately reported). This note was partially generated using [employer] voice recognition system, and there may be some incorrect words, spellings, and punctuation that were not noted in checking the note before saving. Nilton Tony M.D.[facility]02-23-2023 History of Present illness Narrative* Nilton Tony MD - 10/08/2022 5:03 PM EST The patient was seen for the issues discussed below. Problem list and history reviewed. Allergies reviewed. Medications reviewed. Immunizations reviewed. HISTORY: see history section below PHYSICAL EXAM: On its that light red light GENERAL RECOMMENDATIONS: - Issues discussed in detail. - Symptom relief measures as needed. - Prescriptions, if ordered, are listed below. - Labs and/or X-rays, if ordered or obtained, are listed below. If the final results are not available at the conclusion of this visit, then additional recommendations may be made based on the final results. Note that all x-rays are reviewed by a radiologist before being considered final. - EKG, if ordered or obtained, is reviewed by a technical architect before being considered final. Additional recommendations may be made based on the final results. - Return to clinic should current symptoms (if present) worsen, other problems develop, or as needed. ADDITIONAL & DICTATED PORTION: ADDITIONAL HISTORY The following Nursing History was reviewed with the family: Patient presents with: Med Check: Med check - Pt has been off Zoloft since last appointment, would like to restart. Jasmyn had been on Zoloft 100 mg daily when she developed urticaria. It was working well at the time. Scared survey from the last anxiety visit (05/19/2022) were excellent. Due to the urticaria and the possibility that it may have been secondary to Zoloft, the Zoloft was weaned away and she was referred to allergy. Allergy evaluation has been performed and she was diagnosed with chronic urticaria. She is now back to restart the Zoloft. She had not had any other potential side effects from the Zoloft. Currently no suicidal ideation present. No current illnesses. No fevers. No eye, ear, nose, throat complaints. Some cough has been present.She feels this is due to a cold. No wheezing, shortness of breath. No vomiting, diarrhea, abdominalpain. No rash or edema. ACTIVE PROBLEM LIST Environmental Allergies Atopic Dermatitis Anxiety Pressure Urticaria Bmi (Body Mass Index), Pediatric, Greater Than Or Equal to 95% for Age Chronic Urticaria PAST MEDICAL HISTORY Diagnosis Date Menstrual syndrome 09/2014 Migraine headache 06/25/2014 Overweight 06/12/2016 Thumb fracture 11/2016 right thumb fx, casted. Viral warts 04/26/2018 PAST SURGICAL HISTORY Procedure Laterality Date NONE ADDITIONAL EXAM / OTHER INFORMATION none ADDITIONAL IMPRESSION / PLAN 1. Anxiety. We will restart the Zoloft at 50 mg daily. In 1 month this will be increased to 100 mg daily. Follow-up in 3 months. We again discussed that SSRI medications can increase suicidal ideation, and should she have any self-harm thoughts then she would need to be seen immediately by a crisisevaluation team in the emergency room. 2. Last year she had had several labs ordered due to her elevated BMI. These were reordered today. She also has pending labs (still to be drawn) from August of this year. Orders Placed This Encounter LIPID PANEL BASIC Standing Status: Future Standing Expiration Date: 10/08/2023 Scheduling Instructions: Patient must be Fasting 10-12 hours prior to having blood drawn. (Water is permitted) GLUCOSE FASTING BLD Standing Status: Future Standing Expiration Date: 10/08/2023 Scheduling Instructions: Patient must be Fasting 10-12 hours prior to having blood drawn. (Water is permitted) sertraline (ZOLOFT) 50 mg tablet Sig: Take 1 tablet by mouth once daily. Dispense: 30 tablet Refill: 0 sertraline (ZOLOFT) 100 mg tablet Sig: Take 1 tablet by mouth once daily. Dispense: 30 tablet Refill: 1 I spent a total of 20-29 minutes on the date of service. This included preparing to see the patient; [id number] patient care; obtaining and/or reviewing separately obtained history; performing a medically appropriate examination; counseling and educatingthe patient/family/caregiver; and completing clinical documentation. As applicable, this also included ordering medications, tests, or procedures; independently interpreting results; communicating results to the patient/family/caregiver; and care coordination (not separately reported). This note was partially generated using [employer] voice recognition system, and there may be some incorrect words, spellings, and punctuation that were not noted in checking the note before saving. Nilton Tony M.D. documented in this encounterL[facility]02-[facility]23 NoteHNO ID: [id number] Author: Rekha Hicks MD Service: ? Author Type: Physician Type: Progress Notes Filed: 10/08/2022 10:36 AM Note Text: Jasmyn Reagan is an 16 year old female with a history of chronic spontaneous urticaria who presents for a follow-up visit. Her last visit was September 02, 2022. Recommended that she begin taking Zyrtec 10 mg twice daily and Pepcid 20 mg twice daily at that time. Patient continues to experience urticarial lesions on almost a daily basis. She has not noted significant improvement with use of Zyrtec or Pepcid. Denies angioedema. There are no clear triggers to her symptoms. She occasionally takes ibuprofen for headaches and has not noted worsening symptoms associated with ibuprofen use. (From initial visit on 09/02/22 This is a consultation requested by Dr. Tony for an allergy and immunology evaluation. My final recommendations will be communicated back to the requesting healthcare provider(s) by way of shared medical record or via U.S. mail. Jasmyn Reagan is an 16 year old female who presents with a 4-month history of urticaria. Skin lesions are described as red raised pruritic and burning lesions. She experiences urticaria on almost a daily basis. Individual lesions resolve within hours without residual bruising or hyperpigmentation. Denies angioedema. There are no clear triggers to her symptoms. Denies emergency room visits or treatment with systemic corticosteroids for urticaria. Denies use of aspirin/NSAIDs. She has been taking Zoloft for 3 years. This was discontinued on August 21 due to concern that this may be the cause of the urticaria. Symptoms have continued despite discontinuing use of this medication. She has taken Benadryl as needed with fair relief of symptoms. Denies concurrent symptoms including fevers, chills, night sweats and unintentional weight loss. Denies a history of joint pain/joint swelling. Denies a history of thyroid or liver disease. Regarding family history, her maternal uncle has a history of thyroid disease. No family history of urticaria or connective tissue disease. She has occasional mild nasal and ocular symptoms. She does not take any medications for the symptoms. History of eczema and transfer driver, now resolved. REVIEW OF SYSTEMS: Negative for fevers, chills, night sweats and unintentional weight loss. All other review of systems negative except for those listed above. PAST MEDICAL HISTORY Diagnosis Date Menstrual syndrome 09/2014 Migraine headache 06/25/2014 Overweight 06/12/2016 Thumb fracture 11/2016 right thumb fx, casted. Viral warts 04/26/2018 MEDICATIONS: sertraline (ZOLOFT) 50 mg tablet Take 100 mg by mouth. Levonorgestrel-Ethinyl Estrad 0.1mg - 20mcg per tablet Take by mouth. fluconazole (DIFLUCAN) 150 mg tablet Take 1 pill. This will usually resolve symptoms. Repeat every 72 hours if symptoms do no resolve. ALLERGIES: Allergies As of Date: 10/07/2022 (No Known Allergies) Fully Assessed 09/26/2022 PAST SURGICAL HISTORY Procedure Laterality Date NONE FAMILY HISTORY: Allergic rhinitis:no. Asthma: no. Eczema: no. Cystic fibrosis: no. Immunodeficiency: no. SOCIAL HISTORY: Employer And Job Title: None on file Years Of Education Completed: Not specified Marital Status: Single Social History Tobacco Use Smoking status: Never Smokeless tobacco: Never Tobacco comments: quit Vapes. [employer] senior ENVIRONMENTAL HISTORY: Lives in a house Age of home: 1 years Heating: gas Woodburning fireplace in the home: yes but rarely used Air conditioning: Central air Basement: Dry basement Doris: [id number] carpeting Dust mite controls: Dust mite controls are not in place. Pets in the home: 2 dogs Outdoor animals: There are no outdoor animals Tobacco smoke: No exposure in the home. Physical Exam: GENERAL APPEARANCE:Well appearing, alert, in no acute distress, well-hydrated, well nourished. HEENT: NCAT. EYES: conjunctiva and sclera normal. EARS: External ears normal. Canals clear. TM's normal. NOSE/SINUS: Nares normal. Septum midline. Mucosa normal. No drainage or sinus tenderness. THROAT: no erythema NECK:neck supple, no adenopathy HEART:RRR with normal S1 and S2 ,no murmurs, no gallops, no rubs LUNGS: clear to auscultation bilaterally, no wheezes, rales or rhonchi EXTREMITIES:Extremities normal, No deformities, No skin discoloration, and No edema SKIN: No lesions ASSESSMENT/PLAN: 1.) Chronic spontaneous urticaria: Encourage patient to have CBC d/p, ESR, TSH and LFTs completed as ordered at her initial visit Increase Zyrtec to 20 mg twice daily Continue Pepcid 20 mg twice daily The patient may also take benadryl 25-50 mg every 6 hours as needed. Nonspecific triggers or urticaria, including aspirin/NSAIDs were discussed with the patient. If symptoms are not adequately controlled, may consider changing from (more content not included)...[facility]02-22-2023 Instructions* Patient Instructions* Rekha Hicks MD - 10/07/2022 9:26 AM EST Increase cetirizine/zyrtec 10 mg to 2 tablets every morning and 2 tablets every evening Continue famotidine/pepcid 20 mg one tablet twice a day You may also take benadryl 25 to 50 mg every 6 hours as needed. You may also apply ice as needed. documented in this encounterLicking [facility]02-22-2023 Nurse Note* Keshia Doll RN - 10/07/2022 9:11 AM EST Patient still having hives-no change. Taking zyrtec 10 mg twice daily and pepcid 20 mg twice daily. documented in this encounterLicking [facility]02-22-2023 History of Present illness Narrative* Rekha Hicks MD - 10/07/2022 9:00 AM EST Jasmyn Reagan is an 16 year old female with a history of chronic spontaneous urticaria who presents for a follow-up visit. Her last visit was September 02, 2022. Recommended that she begin taking Zyrtec 10 mg twice daily and Pepcid 20 mg twice daily at that time. Patient continues to experience urticarial lesions on almost a daily basis. She has not noted significant improvement with use of Zyrtec or Pepcid. Denies angioedema. There are no clear triggers to her symptoms. She occasionally takes ibuprofen for headaches and has not noted worsening symptoms associated with ibuprofen use. (From initial visit on 09/02/22 This is a consultation requested by Dr. Tony for an allergy and immunology evaluation. My final recommendations will be communicated back to the requesting healthcare provider(s) by way of shared medical record or via U.S. mail. Jasmyn Reagan is an 16 year old female who presents with a 4-month history of urticaria. Skin lesions are described as red raised pruritic and burning lesions. She experiences urticaria on almost a daily basis. Individual lesions resolve within hours without residual bruising or hyperpigmentation. Denies angioedema. There are no clear triggers to her symptoms. Denies emergency room visits or treatment with systemic corticosteroids for urticaria. Denies use of aspirin/NSAIDs. She has been taking Zoloft for 3 years. This was discontinued on August 21 due to concern that this may be the causeof the urticaria. Symptoms have continued despite discontinuing use of this medication. She has taken Benadryl as needed with fair relief of symptoms. Denies concurrent symptoms including fevers, chills, night sweats and unintentional weight loss. Denies a history of joint pain/joint swelling. Denies a history of thyroid or liver disease. Regarding family history, her maternal uncle has a history of thyroid disease. No family history ofurticaria or connective tissue disease. She has occasional mild nasal and ocular symptoms. She does not take any medications for the symptoms. History of eczema and transfer driver, now resolved. REVIEW OF SYSTEMS: Negative for fevers, chills, night sweats and unintentional weight loss. All other review of systems negative except for those listed above. PAST MEDICAL HISTORY Diagnosis Date Menstrual syndrome 09/2014 Migraine headache 06/25/2014 Overweight 06/12/2016 Thumb fracture 11/2016 right thumb fx, casted. Viral warts 04/26/2018 MEDICATIONS: sertraline (ZOLOFT) 50 mg tablet Take 100 mg by mouth. Levonorgestrel-Ethinyl Estrad 0.1mg - 20mcg per tablet Take by mouth. fluconazole (DIFLUCAN) 150 mg tablet Take 1 pill. This will usually resolve symptoms. Repeat every 72 hours if symptoms do no resolve. ALLERGIES: Allergies As of Date: 10/07/2022 (No Known Allergies) Fully Assessed 09/26/2022 PAST SURGICAL HISTORY Procedure Laterality Date NONE FAMILY HISTORY: Allergic rhinitis:no. Asthma: no. Eczema: no. Cystic fibrosis: no. Immunodeficiency: no. SOCIAL HISTORY: Employer And Job Title: None on file Years Of Education Completed: Not specified Marital Status: Single Social History Tobacco Use Smoking status: Never Smokeless tobacco: Never Tobacco comments: quit Vapes. Luci [employer] [facility] ENVIRONMENTAL HISTORY: Lives in a house Age of home: 1 years Heating: gas Woodburning fireplace in the home: yes but rarely used Air conditioning: Central air Basement: Dry basement Doris: [id number] carpeting Dust mite controls: Dust mite controls are not in place. Pets in the home: 2 dogs Outdoor animals: There are no outdoor animals Tobacco smoke: No exposure in the home. Physical Exam: GENERAL APPEARANCE:Well appearing, alert, in no acute distress, well-hydrated, well nourished. HEENT: NCAT. EYES: conjunctiva and sclera normal. EARS: External ears normal. Canals clear. TM's normal. NOSE/SINUS: Nares normal. Septum midline. Mucosa normal. No drainage or sinus tenderness. THROAT: no erythema NECK:neck supple, no adenopathy HEART:RRR with normal S1 and S2 ,no murmurs, no gallops, no rubs LUNGS: clear to auscultation bilaterally, no wheezes, rales or rhonchi EXTREMITIES:Extremities normal, No deformities, No skin discoloration, and No edema SKIN: No lesions ASSESSMENT/PLAN: 1.) Chronic spontaneous urticaria: Encourage patient to have CBC d/p, ESR, TSH and LFTs completed as ordered at her initial visit Increase Zyrtec to 20 mg twice daily Continue Pepcid 20 mg twice daily The patient may also take benadryl 25-50 mg every 6 hours as needed. Nonspecific triggers or urticaria, including aspirin/NSAIDs were discussed with the patient. If symptoms are not adequately controlled, may consider changing from Zyrtec to high-dose Hina or Claritin. Singulair is another treatment option that may also be considered. Potential side effects associated with use of Singulair including neuropsychiatric side effects were discussed with the patient. If unable to achieve adequate control of her symptoms despite use of high-dose H1 and H2 antihistamines +/- Singulair, treatment with Xolair will be strongly considered. 2.) Discussed medication dosage, usage, side effects, and goals of treatment in detail. 3.) Follow-up in 3-4 weeks - patient will return sooner should new symptoms or problems arise. Rekha Hicks MD documented in this encounterL[facility]01-18-2023 NoteHNO ID: [id number] Author: Rekha Hicks MD Service: ? Author Type: Physician Type: Progress Notes Filed: 09/04/2022 12:35 PM Note Text: This is a consultation requested by Dr. Tony for an allergy and immunology evaluation. My final recommendations will be communicated back to the requesting healthcare provider(s) by way of shared medical record or via U.S. mail. Jasmyn Reagan is an 16 year old female who presents with a 4-month history of urticaria. Skin lesions are described as red raised pruritic and burning lesions. She experiences urticaria on almost a daily basis. Individual lesions resolve within hours without residual bruising or hyperpigmentation. Denies angioedema. There are no clear triggers to her symptoms. Denies emergency room visits or treatment with systemic corticosteroids for urticaria. Denies use of aspirin/NSAIDs. She has been taking Zoloft for 3 years. This was discontinued on August 21 due to concern that this may be the cause of the urticaria. Symptoms have continued despite discontinuing use of this medication. She has taken Benadryl as needed with fair relief of symptoms. Denies concurrent symptoms including fevers, chills, night sweats and unintentional weight loss. Denies a history of joint pain/joint swelling. Denies a history of thyroid or liver disease. Regarding family history, her maternal uncle has a history of thyroid disease. No family history of urticaria or connective tissue disease. She has occasional mild nasal and ocular symptoms. She does not take any medications for the symptoms. History of eczema and transfer driver, now resolved. REVIEW OF SYSTEMS: SINUSITIS: The patient does not suffer from frequent sinopulmonary infections. ASTHMA: The patient has no history of asthma. ECZEMA: See [place] URTICARIA:See [place] GERD: Patient has been complaining of GERD symptoms. INSECT STING: The patient does not have a history of systemic reaction to insect sting. FOOD ALLERGY:The patient denies history of food allergy. LATEX: The patient does not have a history of adverse reaction to latex. All other review of systems negative except for those listed above. PAST MEDICAL HISTORY Diagnosis Date Menstrual syndrome 09/2014 Migraine headache 06/25/2014 Overweight 06/12/2016 Thumb fracture 11/2016 right thumb fx, casted. Viral warts 04/26/2018 MEDICATIONS: No prescriptions on file. ALLERGIES: Allergies As of Date: 09/02/2022 Allergen Noted Reaction ZOLOFT [SERTRALINE] 08/21/2022 Hives Fully Assessed 09/02/2022 PAST SURGICAL HISTORY Procedure Laterality Date NONE FAMILY HISTORY: Allergic rhinitis:no. Asthma: no. Eczema: no. Cystic fibrosis: no. Immunodeficiency: no. SOCIAL HISTORY: Employer And Job Title: None on file Years Of Education Completed: Not specified Marital Status: Single Social History Tobacco Use Smoking status: Never Smokeless tobacco: Never Tobacco comments: quit Vapes. [employer]i [employer] [facility] ENVIRONMENTAL HISTORY: Lives in a house Age of home: 1 years Heating: gas Woodburning fireplace in the home: yes but rarely used Air conditioning: Central air Basement: Dry basement Doris: [id number] carpeting Dust mite controls: Dust mite controls are not in place. Pets in the home: 2 dogs Outdoor animals: There are no outdoor animals Tobacco smoke: No exposure in the home. Physical Exam: GENERAL APPEARANCE:Well appearing, alert, in no acute distress, well-hydrated, well nourished. HEENT: NCAT. EYES: conjunctiva and sclera normal. EARS: External ears normal. Canals clear. TM's normal. NOSE/SINUS: Nares normal. Septum midline. Mucosa normal. No drainage or sinus tenderness. THROAT: no erythema NECK:neck supple, no adenopathy HEART:RRR with normal S1 and S2 ,no murmurs, no gallops, no rubs LUNGS: clear to auscultation bilaterally, no wheezes, rales or rhonchi ABDOMEN:soft, nontender, nondistended, without organomegaly or palpable masses EXTREMITIES:Extremities normal, No deformities, No skin discoloration, and No edema SKIN: A couple urticarial lesions on the neck anteriorly ASSESSMENT/PLAN: 1.) Chronic spontaneous urticaria: CBC d/p, ESR, TSH and LFTs will be obtained to screen for underlying etiology of the patient's symptoms. Start Zyrtec 10 mg twice daily Start Pepcid 20 mg twice daily The patient may also take benadryl 25-50 mg every 6 hours as needed. Nonspecific triggers or urticaria, including aspirin/NSAIDs were discussed with the patient. Her symptoms are not consistent with IgE-mediated allergy to Zoloft. She may resume use of Zoloft as tolerated. 2.) Discussed medication dosage, usage, side effects, and goals of treatment in detail. 3.) Follow-up in 1 months - patient will return sooner should new symptoms or problems arise. Rekha Hicks, [facility]01-18-2023 Instructions* Patient Instructions* Rekha Hicks MD - 09/02/2022 10:32 AM EST Take cetirizine (zyrtec) 10 mg tablets one tablet twice a day every day on a regular basis Take famotidine (pepcid) 20 mg twice a day every day on a regular basis You may also take benadryl 25 mg one to two tablets every 6 hours as needed. documented in this encounterLicking [facility]01-18-2023 History of Present illness Narrative* Rekha Hicks MD - 09/02/2022 9:43 AM EST This is a consultation requested by Dr. Tony for an allergy and immunology evaluation. My final recommendations will be communicated back to the requesting healthcare provider(s) by way of shared medical record or via U.S. mail. Jasmyn Reagan is an 16 year old female who presents with a 4-month history of urticaria. Skin lesions are described as red raised pruritic and burning lesions. She experiences urticaria on almost a daily basis. Individual lesions resolve within hours without residual bruising or hyperpigmentation. Denies angioedema. There are no clear triggers to her symptoms. Denies emergency room visits or treatment with systemic corticosteroids for urticaria. Denies use of aspirin/NSAIDs. She has been taking Zoloft for 3 years. This was discontinued on August 21 due to concern that this may be the causeof the urticaria. Symptoms have continued despite discontinuing use of this medication. She has taken Benadryl as needed with fair relief of symptoms. Denies concurrent symptoms including fevers, chills, night sweats and unintentional weight loss. Denies a history of joint pain/joint swelling. Denies a history of thyroid or liver disease. Regarding family history, her maternal uncle has a history of thyroid disease. No family history ofurticaria or connective tissue disease. She has occasional mild nasal and ocular symptoms. She does not take any medications for the symptoms. History of eczema and transfer driver, now resolved. REVIEW OF SYSTEMS: SINUSITIS: The patient does not suffer from frequent sinopulmonary infections. ASTHMA: The patient has no history of asthma. ECZEMA: See [place] URTICARIA:See [place] GERD: Patient has been complaining of GERD symptoms. INSECT STING: The patient does not have a history of systemic reaction to insect sting. FOOD ALLERGY:The patient denies history of food allergy. LATEX: The patient does not have a history of adverse reaction to latex. All other review of systems negative except for those listed above. PAST MEDICAL HISTORY Diagnosis Date Menstrual syndrome 09/2014 Migraine headache 06/25/2014 Overweight 06/12/2016 Thumb fracture 11/2016 right thumb fx, casted. Viral warts 04/26/2018 MEDICATIONS: No prescriptions on file. ALLERGIES: Allergies As of Date: 09/02/2022 Allergen Noted Reaction ZOLOFT [SERTRALINE] 08/21/2022 Hives Fully Assessed 09/02/2022 PAST SURGICAL HISTORY Procedure Laterality Date NONE FAMILY HISTORY: Allergic rhinitis:no. Asthma: no. Eczema: no. Cystic fibrosis: no. Immunodeficiency: no. SOCIAL HISTORY: Employer And Job Title: None on file Years Of Education Completed: Not specified Marital Status: Single Social History Tobacco Use Smoking status: Never Smokeless tobacco: Never Tobacco comments: quit Vapes. 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 Pets in the home: 2 dogs Outdoor animals: There are no outdoor animals Tobacco smoke: No exposure in the home. Physical Exam: GENERAL APPEARANCE:Well appearing, alert, in no acute distress, well-hydrated, well nourished. HEENT: NCAT. EYES: conjunctiva and sclera normal. EARS: External ears normal. Canals clear. TM's normal. NOSE/SINUS: Nares normal. Septum midline. Mucosa normal. No drainage or sinus tenderness. THROAT: no erythema NECK:neck supple, no adenopathy HEART:RRR with normal S1 and S2 ,no murmurs, no gallops, no rubs LUNGS: clear to auscultation bilaterally, no wheezes, rales or rhonchi ABDOMEN:soft, nontender, nondistended, without organomegaly or palpable masses EXTREMITIES:Extremities normal, No deformities, No skin discoloration, and No edema SKIN: A couple urticarial lesions on the neck anteriorly ASSESSMENT/PLAN: 1.) Chronic spontaneous urticaria: CBC d/p, ESR, TSH and LFTs will be obtained to screen for underlying etiology of the patient's symptoms. Start Zyrtec 10 mg twice daily Start Pepcid 20 mg twice daily The patient may also take benadryl 25-50 mg every 6 hours as needed. Nonspecific triggers or urticaria, including aspirin/NSAIDs were discussed with the patient. Her symptoms are not consistent with IgE-mediated allergy to Zoloft. She may resume use of Zoloft as tolerated. 2.) Discussed medication dosage, usage, side effects, and goals of treatment in detail. 3.) Follow-up in 1 months - patient will return sooner should new symptoms or problems arise. Rekha Hicks MD documented [facility] Nurse Note* Sri Mayers RN - 09/02/2022 9:40 AM EST Pt gets hives on hands arms chest and neck. Feels hot and itchy. Pt states has been going on for the last 4 months. Pt has been on zoloft for almost 3 years. Pcp told her to stop it just in case was an allergy. Have tried hydrocortisone cream, cold water. States the cold or heat make it worse. Pt has tried benadryl when it occurs, pt states does not help relieve symptoms too much just makes her sleepy. No antihistamine use. documented in this encounterL[facility]01-09-2023 Miscellaneous Notes* Telephone Encounter - Maria Ines Chou LPN - 08/24/2022 11:25 AM EST Mom called in and pt has an appt with allergy on 09/02/2022. * Telephone Encounter - Seda Lind RN - 08/24/2022 10:49 AM EST Called and spoke with patient. She asks that we contact her mother to schedule this appointment. Attempted to call mother ([phone]). No answer. Message left for parent to return call. Seda Lind RN * Telephone Encounter - Nilton Tony MD - 08/21/2022 5:34 PM EST Referral/s needed are listed below. Unless also noted below, the family has not yet decided on their preference in terms of location/provider, or has not had time to check with their insurance regarding restrictions. Once the family has made their decision, then precise arrangements, orders, etc. can be created. Repeat solution architect referral [facility] Dr. [facility], [facility]. She was originally referred to Dr. Hicks for pressure urticaria back in early April 2022. That visit was canceled. She now presents with possiblechronic urticaria. The patient feels it may be related to the Zoloft she has been taking, thereforethe Zoloft has been discontinued. Other SSRI medications have not been started so as not to confuse the picture. This note was partially generated using [employer] voice recognition system, and there may be some incorrect words, spellings, and punctuation that were not noted in checking the note before saving. Nilton Tony MD documented in this encounterLicking [facility]01-06-2023 NoteHNO ID: [id number] Author: Nilton Tony MD Service: ? Author Type: Physician Type: Progress Notes Filed: 08/21/2022 5:37 PM Note Text: The patient was seen for the issues discussed below. Problem list and history reviewed. Allergies reviewed. Medications reviewed. Immunizations reviewed. HISTORY: see history section below PHYSICAL EXAM: GENERAL: alert, well appearing, in no distress LEFT EYE: no drainage noted, no conjunctival injection noted; RIGHT EYE: no drainage noted, no conjunctival injection noted; NO ADDITIONAL EYE FINDINGS LEFT EAR: pinna normal, auditory canal normal, tympanic membrane clear, no effusion noted, RIGHT EAR: pinna normal, auditory canal normal, tympanic membrane clear, no effusion noted NOSE/SINUSES: nares normal, mucosa normal, no drainage noted OROPHARYNX: lips without lesions noted, gums/mucosa normal, oropharynx without erythema or exudates NECK/ADENOPATHY: neck supple, no adenopathy noted CHEST/LUNGS: lungs clear to auscultation CARDIOVASCULAR: regular rate and rhythm, capillary refill less than 2 seconds GENERAL RECOMMENDATIONS: - Issues discussed in detail. - Symptom relief measures as needed. - Prescriptions, if ordered, are listed below. - Labs and/or X-rays, if ordered or obtained, are listed below. If the final results are not available at the conclusion of this visit, then additional recommendations may be made based on the final results. Note that all x-rays are reviewed by a radiologist before being considered final. - EKG, if ordered or obtained, is reviewed by a technical architect before being considered final. Additional recommendations may be made based on the final results. - Return to clinic should current symptoms (if present) worsen, other problems develop, or as needed. ADDITIONAL AND DICTATED PORTION: ADDITIONAL HISTORY The following Nursing History was reviewed with the family: Patient presents with: Heartburn: ? Heartburn, occurring multiple times per week, mainly at night with a few occurrences during the day.. Med check: Discuss possible reaction to anxiety medication. Redness on hands, arms, spreading to neck and chest. Pt states the medication causes he bottom teeth to chatter and she feel dizzy. Pt states that the reaction to the medication happens a few hours after taking her daily dose, states she has been on this medication for a couple of years, and this has begun out of the blue . 1. The patient is concerned that she may be having a reaction to her Zoloft. As noted above, recently, when the Zoloft is taken, her bottom teeth chatter and she feels dizzy. She also develops an urticarial rash over the hands, arms, and upper chest. She had photographs of the rash and they are consistent with urticaria. The area has intense burning when present. Over the past 2 weeks she decreased her Zoloft dosage from 100 mg daily to 50 mg daily (due to the urticarial lesions). She has not taken the Zoloft every single day, and on the days that it has not been taken there has been no urticaria. The urticaria was also addressed at the physical exam 04/17/2022. At that time it was felt to be pressure urticaria. A referral to allergy was made but the appointment (for 05/21/[address] Hicks) was subsequently canceled. 2. She is also having possible reflux esophagitis. She states it is a burning sensation in the back of her throat and upper neck. Tums helps resolve the symptoms. She does not eat spicy foods or overly large amount of food. Current review of systems negative for fevers. No eye, ear, nose, throat complaints. No cough, wheezing, shortness of breath. No vomiting, diarrhea, abdominal pain. ACTIVE PROBLEM LIST Environmental Allergies Atopic Dermatitis Anxiety Pressure Urticaria Bmi (Body Mass Index), Pediatric, Greater Than Or Equal to 95% for Age PAST MEDICAL HISTORY Diagnosis Date Menstrual syndrome 09/2014 Migraine headache 06/25/2014 Overweight 06/12/2016 Thumb fracture 11/2016 right thumb fx, casted. Viral warts 04/26/2018 PAST SURGICAL HISTORY Procedure Laterality Date NONE ADDITIONAL EXAM / OTHER INFORMATION none ADDITIONAL IMPRESSION / PLAN 1. Possible chronic urticaria. Note that the distribution is always identical (hands, arms, and upper chest), which would be considered unusual for urticaria. This was discussed in detail. We discussed any number of triggers of chronic urticaria include foods, food additives, drugs, physical causes, insect bites, infections, etc. We will repeat the referral to allergy. Zoloft to be discontinued at this time (she has already weaned the dosage down to 50 mg daily). We discussed that chronic use of antihistamines are often used for chronic urticaria, but I recommend she be evaluated by the allerg (more content not included)...[facility]01[facility]06[facility] History of Present illness Narrative* Nilton Tony MD - 08/21/2022 5:18 PM EST The patient was seen for the issues discussed below. Problem list and history reviewed. Allergies reviewed. Medications reviewed. Immunizations reviewed. HISTORY: see history section below PHYSICAL EXAM: GENERAL: alert, well appearing, in no distress LEFT EYE: no drainage noted, no conjunctival injection noted; RIGHT EYE: no drainage noted, no conjunctival injection noted; NO ADDITIONAL EYE FINDINGS LEFT EAR: pinna normal, auditory canal normal, tympanic membrane clear, no effusion noted, RIGHT EAR: pinna normal, auditory canal normal, tympanic membrane clear, no effusion noted NOSE/SINUSES: nares normal, mucosa normal, no drainage noted OROPHARYNX: lips without lesions noted, gums/mucosa normal, oropharynx without erythema or exudates NECK/ADENOPATHY: neck supple, no adenopathy noted CHEST/LUNGS: lungs clear to auscultation CARDIOVASCULAR: regular rate and rhythm, capillary refill less than 2 seconds GENERAL RECOMMENDATIONS: - Issues discussed in detail. - Symptom relief measures as needed. - Prescriptions, if ordered, are listed below. - Labs and/or X-rays, if ordered or obtained, are listed below. If the final results are not available at the conclusion of this visit, then additional recommendations may be made based on the final results. Note that all x-rays are reviewed by a radiologist before being considered final. - EKG, if ordered or obtained, is reviewed by a technical architect before being considered final. Additional recommendations may be made based on the final results. - Return to clinic should current symptoms (if present) worsen, other problems develop, or as needed. ADDITIONAL & DICTATED PORTION: ADDITIONAL HISTORY The following Nursing History was reviewed with the family: Patient presents with: Heartburn: ? Heartburn, occurring multiple times per week, mainly at night with a few occurrences during the day.. Med check: Discuss possible reaction to anxiety medication. Redness on hands, arms, spreading to neck and chest. Pt states the medication causes he bottom teeth to chatter and she feel dizzy. Pt states that the reaction to the medication happens a few hours after taking her daily dose, states she has been on this medication for a couple of years, and this has begun out of the blue . 1. The patient is concerned that she may be having a reaction to her Zoloft. As noted above, recently, when the Zoloft is taken, her bottom teeth chatter and she feels dizzy. She also develops an urticarial rash over the hands, arms, and upper chest. She had photographs of the rash and they are consistent with urticaria. The area has intense burning when present. Over the past 2 weeks she decreased her Zoloft dosage from 100 mg daily to 50 mg daily (due to the urticarial lesions). She has not taken the Zoloft every single day, and on the days that it has not been taken there has been no urticaria. The urticaria was also addressed at the physical exam 04/17/2022. At that time it was felt to be pressure urticaria. A referral to allergy was made but the appointment (for 05/21/[address] Hicks) wassubsequently canceled. 2. She is also having possible reflux esophagitis. She states it is a burning sensation in the backof her throat and upper neck. Tums helps resolve the symptoms. She does not eat spicy foods or overly large amount of food. Current review of systems negative for fevers. No eye, ear, nose, throat complaints. No cough, wheezing, shortness of breath. No vomiting, diarrhea, abdominal pain. ACTIVE PROBLEM LIST Environmental Allergies Atopic Dermatitis Anxiety Pressure Urticaria Bmi (Body Mass Index), Pediatric, Greater Than Or Equal to 95% for Age PAST MEDICAL HISTORY Diagnosis Date Menstrual syndrome 09/2014 Migraine headache 06/25/2014 Overweight 06/12/2016 Thumb fracture 11/2016 right thumb fx, casted. Viral warts 04/26/2018 PAST SURGICAL HISTORY Procedure Laterality Date NONE ADDITIONAL EXAM / OTHER INFORMATION none ADDITIONAL IMPRESSION / PLAN 1. Possible chronic urticaria. Note that the distribution is always identical (hands, arms, and upper chest), which would be considered unusual for urticaria. This was discussed in detail. We discussed any number of triggers of chronic urticaria include foods, food additives, drugs, physical causes, insect bites, infections, etc. We will repeat the referral to allergy. Zoloft to be discontinued at this time (she has already weaned the dosage down to 50 mg daily). We discussed that chronic use of antihistamines are often used for chronic urticaria, but I recommend she be evaluated by the solution architect first. We discussed one of the most important goals from the solution architect referral is to hopefullydetermine that the Zoloft was not the etiology (as she will likely require an SSRI medication to becontinued for quite some time due to her anxiety). Continue obtaining photographs and detailed symptom diary when symptoms are present. 2. History consistent with reflux esophagitis. Discussed in detail. Continue Tums as needed. Avoid overeating, spicy foods, etc. Discussed I do not wish to consider other medications at this time because I would like her to be evaluated by the solution architect (regarding problem #1 above) first, so as notto create a more confusing picture. I spent a total of 40-54 minutes on the date of service. This included preparing to see the patient; [id number] patient care; obtaining and/or reviewing separately obtained history; performing a medically appropriate examination; counseling and educatingthe patient/family/caregiver; and completing clinical documentation. As applicable, this also included ordering medications, tests, or procedures; independently interpreting results; communicating results to the patient/family/caregiver; and care coordination (not separately reported). This note was partially generated using [employer] voice recognition system, and there may be some incorrect words, spellings, and punctuation that were not noted in checking the note before saving. Nilton Tony M.D. documented in this encounterL[facility]10-06-2022 Miscellaneous Notes* Telephone Encounter - Cristina Brantley RN - 05/21/2022 2:43 PM EDT Patient notified, voiced understanding Cristina Brantley RN * Telephone Encounter - Cristina Brantley RN - 05/21/2022 8:46 AM EDT Attempted to call, no answer and unable to leave a message due to mailbox being full Cristina Brantley RN * Telephone Encounter - Nilton Tony MD - 05/21/2022 8:01 AM EDT Outside ER testing revealed the following: The chlamydia testing was positive. GC testing was negative. T vaginalis testing was negative. Note the subsequent urine culture from our office visit was negative. The chlamydia needs to be treated. A prescription for Zithromax 1 g orally (as a single dose) has been sent to the pharmacy listed in the computer. The patient will need to be treated. She will also need to ensure that her partner is also evaluated and treated. This note was partially generated using Dragon voice recognition system, and there may be some incorrect words, spellings, and punctuation that were not noted in checking the note before saving. Nilton Tony MD * Telephone Encounter - Nilton Tony MD - 05/19/2022 2:29 PM EDT Need to follow-up on STD testing performed at the outside emergency room. Testing is currently in process of according to the chart. This note was partially generated using [employer] voice recognition system, and there may be some incorrect words, spellings, and punctuation that were not noted in checking the note before saving. Nilton Tony MD documented in this encounterL[facility]10-04-[facility]22 History of Present illness Narrative* Nilton Tony MD - 05/19/2022 2:25 PM EDT The patient was seen for the issues discussed below. Problem list and history reviewed. Allergies reviewed. Medications reviewed. Immunizations reviewed. HISTORY: see history section below PHYSICAL EXAM: GENERAL: alert, well appearing, in no distress LEFT EYE: no drainage noted, no conjunctival injection noted; RIGHT EYE: no drainage noted, no conjunctival injection noted; NO ADDITIONAL EYE FINDINGS LEFT EAR: pinna normal, auditory canal normal, tympanic membrane clear, no effusion noted, RIGHT EAR: pinna normal, auditory canal normal, tympanic membrane clear, no effusion noted NOSE/SINUSES: nares normal, mucosa normal, no drainage noted OROPHARYNX: lips without lesions noted, gums/mucosa normal, oropharynx without erythema or exudates NECK/ADENOPATHY: neck supple, no adenopathy noted CHEST/LUNGS: lungs clear to auscultation CARDIOVASCULAR: regular rate and rhythm, capillary refill less than 2 seconds ABDOMEN: soft, nontender, bowel sounds normal, no masses, no organomegaly, abdomen nondistended SKIN: normal color, no rash, no jaundice, moist mucous membranes, turgor within normal limits GENERAL RECOMMENDATIONS: - Issues discussed in detail. - Symptom relief measures as needed. - Prescriptions, if ordered, are listed below. - Labs and/or X-rays, if ordered or obtained, are listed below. If the final results are not available at the conclusion of this visit, then additional recommendations may be made based on the final results. Note that all x-rays are reviewed by a radiologist before being considered final. - EKG, if ordered or obtained, is reviewed by a technical architect before being considered final. Additional recommendations may be made based on the final results. - Return to clinic should current symptoms (if present) worsen, other problems develop, or as needed. ADDITIONAL & DICTATED PORTION: ADDITIONAL HISTORY The following Nursing History was reviewed with the family: Patient presents with: Medication Follow-up: Discuss medication. 1. Patient is here for follow-up of anxiety. Zoloft dosage was increased to 100 mg daily at the last visit. Patient is doing well. No adverse side effects from the medication. No suicidal ideation. Patient is pleased with the current dosage. SCARED Rating Scale Panic/somatic 5 cutoff equals 7 Generalized anxiety 3 cutoff equals 9 Separation 0 cutoff equals 5 Social 7 cutoff equals 8 School avoidance 1 cutoff equals 3 TOTAL 16 cutoff equals 25 2. The patient was recently seen at an outside emergency room for STD screening. Specific STD testing is pending. Urinalysis was not definitive as to whether it pointed toward or away from urinary tract infection. Patient does not have any dysuria or other urinary symptoms at this time. 3. Patient has been having diarrhea for 2-1/2 weeks. No recent COVID infections. No vomiting or abdominal pain. Stools are watery. No blood in the stool. Review of systems negative for fevers. No eye, ear, nose, throat complaints. No cough, wheezing, shortness of breath. No rash or edema. ACTIVE PROBLEM LIST Environmental Allergies Atopic Dermatitis Anxiety Pressure Urticaria Bmi (Body Mass Index), Pediatric, Greater Than Or Equal to 95% for Age PAST MEDICAL HISTORY Diagnosis Date Menstrual syndrome 09/2014 Migraine headache 06/25/2014 Overweight 06/12/2016 Thumb fracture 11/2016 right thumb fx, casted. Viral warts 04/26/2018 PAST SURGICAL HISTORY Procedure Laterality Date NONE ADDITIONAL EXAM / OTHER INFORMATION none ADDITIONAL IMPRESSION / PLAN 1. Anxiety well controlled. No adverse side effects from the medication. Continue Zoloft dosage unchanged. 2. Urine culture sent today. Telephone encounter created to remind me to follow- up on the STD testing from the outside ER. 3. Diarrhea etiology screening studies ordered. These are to be obtained if the diarrhea continues for an additional half week. Patient has no evidence of acute abdomen or dehydration on examination. Orders Placed This Encounter FECAL LEUKOCYTES C. DIFFICLE PCR (not done for age <1 year) Order Comments: Last Stool Flowsheet Data (Last 24 hours) : Celiac Screen with Reflex Standing Status: Future Standing Expiration Date: 07/19/2022 Order Specific Question: Indication for testing (select all that apply): Answer: Symptoms, signs, or laboratory evidence suggestive of malabsorption (e.g. chronic diarrhea with weight loss, steatorrhea, postprandial abd pain, bloating SED RATE Standing Status: Future Standing Expiration Date: 07/19/2022 CBC with Differential Standing Status: Future Standing Expiration Date: 07/19/2022 Comp Metabolic Panel Standing Status: Future Standing Expiration Date: 07/19/2022 URINE CULTURE (clean catch) Order Specific Question: Source Answer: URINE-MIDSTREAM CLEAN CATCH Occult Blood Exam - Diagnostic CRYPTOSPORIDIUM AND GIARDIA ANTIGENS BY EIA sertraline (ZOLOFT) 50 mg tablet Sig: Take 2 tablets by mouth once daily. Dispense: 60 tablet Refill: 1 I spent a total of 30-39 minutes on the date of service. This included preparing to see the patient; [id number] patient care; obtaining and/or reviewing separately obtained history; performing a medically appropriate examination; counseling and educatingthe patient/family/caregiver; and completing clinical documentation. As applicable, this also included ordering medications, tests, or procedures; independently interpreting results; communicating results to the patient/family/caregiver; and care coordination (not separately reported). This note was partially generated using [employer] voice recognition system, and there may be some incorrect words, spellings, and punctuation that were not noted in checking the note before saving. Nilton Tony M.D. documented in this encounterLicking [facility]09-26-2022 Miscellaneous Notes* Telephone Encounter - Maicol Trinidad RN - 05/11/2022 10:37 AM EDT spoke with patient, does not want refill at this time, states I have an appt with Dr. Tony for 05/19/22 to see if this is even the right medication for me Maicol Trinidad RN * Telephone Encounter - Seda Lind RN - 05/11/2022 10:32 AM EDT Request was received via interface from pharmacy. Does patient need refill? Attempted to call, no answer. Voicemail box full and cannot accept new messages at this time. Seda Lind RN documented in this encounterLicking [facility] Hospital09-02-2022 Miscellaneous Notes* Telephone Encounter - Kishor Child RN - 04/17/2022 2:29 PM EDT Connected with [facility] for scheduling. Kishor Child RN * Telephone Encounter - Nilton Tony MD - 04/17/2022 1:46 PM EDT Referral/s needed are listed below. Unless also noted below, the family has not yet decided on their preference in terms of location/provider, or has not had time to check with their insurance regarding restrictions. Once the family has made their decision, then precise arrangements, orders, etc. can be created. History and photographs consistent with pressure urticaria. Discussed in detail. Antihistamine suchas Claritin recommended. [employer] referral placed. This note was partially generated using [employer] Style voice recognition system, and there may be some incorrect words, spellings, and punctuation that were not noted in checking the note before saving. Nilton Tony MD [facility] Instructions* Patient Instructions* Nilton Tony MD - 04/17/2022 1:41 PM EDT Images from the original note were not included. 5 to Go!TM Healthy Kids Inside & Out 5 Eat FIVE fruits and veggies a day 4 Give and get FOUR compliments a day 3 Consume THREE calcium products a day 2 Limit media time to TWO hours a day 1 Get at least ONE hour of exercise a day 0 Consume ZERO sugar-sweetened drinks Go! Be healthy, inside and out! [email or web address] Adolescent to Adult Transition Program [facility] cares about helping you and each of our adolescents and young adults make a smoothtransition to adult care. If your current doctor is a style advisor, we will work with you to decide the correct age for moving your care to a doctor or other provider who takes care of adults. We suggest that this move take place before age 22. Our office policy is to prepare you to move to a doctor or other provider who takes care of adults. This includes helping you find a doctor or other provider, sending medical records, and talking about any special needs with the new doctor or other provider. If your current doctor is in family medicine, [facility] will prepare you and your family forthe transition to being an adult patient. You will be able to make your own healthcare decisions and will have an adult care team that meets your personal healthcare needs. At age 18, by law, we need your agreement to discuss personal health information with your family. We understand and respect that you may want to include your family in healthcare choices and will partner with you on how and when to include your family in decisions. We will make sure you know what changes to expect. We will also strive to make sure that all care team providers know your needs. We will help you find community resources and specialty care, if needed. Having your information before you come for the first time helps us be sure we do not miss any details. If joining our practice from outside [facility], we will help you request your medical record from past doctor(s) before your first visit. We will make every effort to work with your past providers to ensure a smooth transition and experience. We are always here for you. If you have any questions or concerns, please contact your primary careteam or e-mail [email or web address] Got Transition is the federally funded national resource center on health care transition (HCT). Its aim is to improve transition from pediatric to adult health care through the use of evidence-driven strategies for health neonatal critical care nurse, youth, young adults, and their families. www.gottransition.org [email or web address]-[email or web address] documented in this encounterLicking [facility]09-02-[facility]22 History of Present illness Narrative* Nilton Tony MD - 04/17/2022 1:06 PM EDT WELL VISIT PEDIATRIC FEMALE 18+ YRS OLD SERVICE DATE: 04/17/2022 Jasmyn is a 16 year old female who presents today for well exam. SUBJECTIVE CONCERNS: Discuss increasing medication and allergic reactions to environmental objects. HISTORY ACTIVE PROBLEM LIST Pressure Urticaria - 04/17/2022 Bmi (Body Mass Index), Pediatric, Greater Than Or Equal to 95% for Age - 0904/17/2022 Anxiety - 02/13/2021 Atopic Dermatitis - 06/12/2016 Environmental Allergies - 06/25/2014 PAST MEDICAL HISTORY Diagnosis Date Menstrual syndrome 09/2014 Migraine headache 06/25/2014 Overweight 06/12/2016 Thumb fracture 11/2016 right thumb fx, casted. Viral warts 04/26/2018 PAST SURGICAL HISTORY Procedure Laterality Date NONE ALLERGIES Allergen Reactions Latex Hives, Itching Medications: pseudoephedrine (SUDAFED) 30 mg tablet Take 1 tablet by mouth every 4 hours. sertraline (ZOLOFT) 50 mg tablet Take 2 tablets by mouth once daily. FAMILY HISTORY Problem Relation Age of Onset Hypertension Paternal Grandfather Hypertension Maternal Grandmother Heart Maternal Grandmother Diabetes Maternal Grandmother Breast Cancer Maternal Grandmother other (Narcolepsy) Maternal Grandmother Asthma Maternal Grandfather Cancer Maternal Grandfather prostate-in remission other (Neuropathy) Maternal Grandfather other (Fibromyalgia) Maternal Grandfather Social History Social History Narrative Not on file Smoking Exposure: Do you spend a significant amount of time with anyone who smokes? Yes -Who uses tobacco products? Pt and Mom - vaping -Are you interesting in quitting? No -Do you have a smoke-free home rule in place? No -Do you have a smoke-free car rule in place? No School: Grade: 12th ; grades A. Physical Activity more than 1 hour of physical activity per day Screen Time totaling more than 2 hours of screen time per day. Safety: Reviewed seat belts, bike helmets, and smoke detectors Diet: -Eats 2 meals per day and 1 snacks per day -Typical beverages include water and sugar containing beverages -Fruits and vegetables are eaten with nearly every meal -# of fast food meals/week: 1-2 -# of days/week that family has dinner together: 0 Elimination: no concerns, normal size and consistency Dental: dental care current Sleep: -no sleep concerns Gynecological history: LMP: Unknown- Pt has IUD Cycles are Unknown - IUD Dysmenorrhea: mild Heavy periods: no Substance use: vaping High risk behaviors: none Sexual History: Attraction: male Sexually Active: Yes Number of lifetime partners: 6 Contraception: IUD GC/C screen within the past year: No GC/C screen since most recent partner? No Change in normal vaginal discharge: No Body image: unsatisfactory Screening tools reviewed and discussed with patient/[id number] and Social Determinants of Health.Please see Patient Entered Data. REVIEW OF SYSTEMS GENERAL: No fevers EYES: Wears glasses ENT: No hearing concerns RESPIRATORY: Positive for productive cough - on medications CARDIOVASCULAR: Negative for chest pain, syncope, lightheadness or heart racing SKIN: Negative for lesions, rash, and itching ENDOCRINE: No growth concerns OBJECTIVE Physical Exam: BP 112/62 Pulse 80 Temp 36.8 C (98.2 F) (Temporal Artery) Resp 18 Ht 161.2 cm (5' 3.47 ) Wt 80.5 kg (177 lb 8 oz) LMP 08/17/2021 BMI 30.98 kg/m Blood pressure percentiles are not available for patients who are 18 years or older. 95 %ile (Z= 1.68) based on CDC (Girls, 2-20 Years) BMI-for-age based on BMI available as of 04/17/2022. Last BMI: Wt: 80.3 kg (177 lb) (95 %, Z= 1.60)* BMI: 31.35 kg/(m^2) Last 4 Encounter Wt Readings: Date: Wt: 04/07/2022 80.3 kg (177 lb) (95 %, Z= 1.60)* 08/28/2021 68.5 kg (151 lb) (85 %, Z= 1.04)* 07/18/2021 69.9 kg (154 lb) (87 %, Z= 1.14)* 04/07/2021 65.3 kg (144 lb) (81 %, Z= 0.86)* Last 4 Encounter Ht Readings: Date: Ht: 04/07/2022 160 cm (5' 3 ) (31 %, Z= -0.49)* 07/18/2021 160 cm (5' 3 ) (32 %, Z= -0.47)* 05/29/2020 160 cm (5' 3 ) (33 %, Z= -0.43)* 03/08/2020 161 cm (5' 3.39 ) (40 %, Z= -0.27)* GENERAL: alert, well appearing, in no distress HABITUS: overweight HEAD: normocephalic LEFT EYE: no drainage noted, no conjunctival injection noted, pupil round and reactive to light, fundus benign; RIGHT EYE: no drainage noted, no conjunctival injection noted, pupil round and reactiveto light, fundus benign; NO ADDITIONAL EYE FINDINGS LEFT EAR: pinna normal, auditory canal normal, tympanic membrane clear, no effusion noted, RIGHT EAR: pinna normal, auditory canal normal, tympanic membrane clear, no effusion noted NOSE/SINUSES: nares normal, mucosa normal, no drainage noted OROPHARYNX: lips without lesions noted, gums/mucosa normal, oropharynx without erythema or exudates NECK/ADENOPATHY: neck supple, no adenopathy noted CHEST/LUNGS: lungs clear to auscultation CARDIOVASCULAR: regular rate and rhythm, no murmur, capillary refill less than 2 seconds ABDOMEN: soft, nontender, bowel sounds normal, no masses, no organomegaly GENITILIA: DEFERRED EXAM MUSCULOSKELETAL: extremities with full range of motion present throughout, spine without scoliosis NEUROLOGICAL: cranial nerves II-XII grossly intact, deep tendon reflexes 2+/4+ throughout, muscle mass and tone normal SKIN: normal color, no rash, no jaundice ASSESSMENT & PLAN: Encounter Diagnosis ICD-10-CM 1. Routine physical examination Z00.00 2. BMI (body mass index), pediatric, greater than or equal to 95% for age Z68.54 T4/THYROXINE BLOOD TSH BLD LIPID PANEL BASIC AST/SGOT BLD ALT/SGPT GLUCOSE FASTING BLD 3. Anxiety F41.9 4. Pressure urticaria L50.9 CONSULT TO ALLERGY/IMMUNOLOGY 5. Encounter for immunization Z23 INFLUENZA VACCINE QUADRIVALENT 6 MO - 64 YRS IM 95 %ile (Z= 1.68) based on CDC (Girls, 2-20 Years) BMI-for-age based on BMI available as of 04/17/2022. Jasmyn is overweight (BMI 85th% - 95th%): -Discussed how healthy eating, minimizing electronics and getting physical activity impact physical and emotional health -Avoid eating out and encouraged family meals at home -Annual lipid panel ordered based on Obesity Expert Committee Guidelines -Biannual AST, ALT, and fasting glucose ordered due to overweight status and presence of additionalrisk factors based on Obesity Expert Committee Guidelines Depression Screening 04/17/2022 PHQ-2 Score 2 PHQ-9 Score 4 - Discussed diet and safety. - Dental care discussed. - Bright Futures handout given (See Patient Instructions). - Patient was counseled [id number] by myself (the billing provider) for the following immunizations and vaccine components, including side effects: Influenza. Patient consents for immunization and understands risks and benefits. A VIS sheet on each immunization was given to the patient. Patient declined immunization for COVID-19 and Men B and was counseled regarding risk. - Follow up in one year for routine physical. ADDITIONAL PLAN 1. Patient already followed by [facility]. 2. Patient has a history of anxiety. Currently on Zoloft 75 mg daily. She feels this is not providing adequate relief. We will increase to 100 mg daily with follow-up in 1 month. 3. History and photographs consistent with pressure urticaria. Discussed in detail. Antihistamine such as Claritin recommended. [employer] referral placed. 4. Patient states she has difficulty losing weight as she eats very little. In addition to the usual screening labs for elevated BMI, thyroid studies also sent. This note was partially generated using [employer] voice recognition system, and there may be some incorrect words, spellings, and punctuation that were not noted in checking the note before saving. Nilton Tony M.D. documented in [facility] encounterL[facility] History of Past illness Narrative* Problem Noted Date Resolved Date Viral warts 04/26/2018 12/22/2018 Overweight 06/12/2016 12/22/2018 Migraine headache 06/25/2014 12/22/2018 documented as of this encounter (statuses as of 04/17/2022) [facility] of [facility] illness Narrative* Problem Noted Date Resolved Date Viral warts 04/26/2018 12/22/2018 Overweight 06/12/2016 12/22/2018 Migraine headache 06/25/2014 12/22/2018 documented as of this encounter (statuses as of 04/17/2022) [facility] of [facility] Narrative* Problem Noted Date Resolved Date Viral warts 04/26/2018 12/22/2018 Overweight 06/12/2016 12/22/2018 Migraine headache 06/25/2014 12/22/2018 documented as of this encounter (statuses as of 05/11/2022) [facility] Narrative* Problem Noted Date Resolved Date Viral warts 04/26/2018 12/22/2018 Overweight 06/12/2016 12/22/2018 Migraine headache 06/25/2014 12/22/2018 documented as of this encounter (statuses as of 05/19/2022) [facility] Narrative* Problem Noted Date Resolved Date Viral warts 04/26/2018 12/22/2018 Overweight 06/12/2016 12/22/2018 Migraine headache 06/25/2014 12/22/2018 documented as of this encounter (statuses as of 05/21/2022) [facility] Narrative* Problem Noted Date Resolved Date Viral warts 04/26/2018 12/22/2018 Overweight 06/12/2016 12/22/2018 Migraine headache 06/25/2014 12/22/2018 documented as of this encounter (statuses as of 06/05/2022) [facility] Narrative* Problem Noted Date Resolved Date Viral warts 04/26/2018 12/22/2018 Overweight 06/12/2016 12/22/2018 Migraine headache 06/25/2014 12/22/2018 documented as of this encounter (statuses as of 08/22/2022) [facility] Narrative* Problem Noted Date Resolved Date Viral warts 04/26/2018 12/22/2018 Overweight 06/12/2016 12/22/2018 Migraine headache 06/25/2014 12/22/2018 documented as of this encounter (statuses as of 08/24/2022) [facility] Narrative* Problem Noted Date Resolved Date Viral warts 04/26/2018 12/22/2018 Overweight 06/12/2016 12/22/2018 Migraine headache 06/25/2014 12/22/2018 documented as of this encounter (statuses as of 09/04/2022) [facility] Narrative* Problem Noted Date Resolved Date Viral warts 04/26/2018 12/22/2018 Overweight 06/12/2016 12/22/2018 Migraine headache 06/25/2014 12/22/2018 documented as of this encounter (statuses as of 10/08/2022) [address] History of Past illness Narrative* Problem Noted Date Resolved Date Viral warts 04/26/2018 12/22/2018 Overweight 06/12/2016 12/22/2018 Migraine headache 06/25/2014 12/22/2018 documented as of this encounter (statuses as of 10/09/2022) [address]2018 History of Past illness Narrative* Problem Noted Date Resolved Date Viral warts 04/26/2018 12/22/2018 Overweight 06/12/2016 12/22/2018 Migraine headache 06/25/2014 12/22/2018 documented as of this encounter (statuses as of 12/04/2022) [place] [address]11-2018 History of Past illness Narrative* Problem Noted Date Resolved Date Viral warts 04/26/2018 12/22/2018 Overweight 06/12/2016 12/22/2018 Migraine headache 06/25/2014 12/22/2018 documented as of this encounter (statuses as of 01/14/2023) [facility] Narrative* Problem Noted Date Diagnosed Date Resolved Date Viral warts 04/26/2018 12/22/2018 Overweight 06/12/2016 12/22/2018 Migraine headache 06/25/2014 12/22/2018 documented as of this encounter (statuses as of 06/08/2023) [facility] note* Diagnosis Contusion of right hand, initial encounter- Primary [facility]* Diagnosis Routine physical examination- Primary Routine general medical examination at a health care facility BMI (body mass index), pediatric, greater than or equal to 95% for age Body Mass Index, pediatric, greater than or equal to 95th percentile for age Anxiety Anxiety state, unspecified Pressure urticaria Other specified urticaria Encounter for immunization Need for other specified prophylactic vaccination against single bacterial disease documented in this encounter [facility] note* Diagnosis Anxiety- Primary Anxiety state, unspecified Abnormal laboratory test result Other abnormal clinical finding Diarrhea, unspecified type documented in this encounter [facility] note* Diagnosis Chronic urticaria- Primary Other specified urticaria [facility]* Diagnosis Chronic urticaria- Primary Other specified urticaria documented in this encounter [facility] note* Diagnosis Chronic urticaria- Primary Other specified urticaria [facility]* Diagnosis Anxiety- Primary Anxiety state, unspecified BMI (body mass index), pediatric, greater than or equal to 95% for age Body Mass Index, pediatric, greater than or equal to 95th percentile for age documented [facility]* Diagnosis Viral URI with cough- Primary Acute upper respiratory infections of unspecified site documented in this encounter [facility] note* Diagnosis Sprain of right thumb, unspecified site of digit, initial encounter- Primary documented in this encounter [facility] note* Diagnosis Sore throat- Primary Acute pharyngitis URI with cough and congestion documented in this encounter [facility] note* Diagnosis Cystitis- Primary Unspecified cystitis documented in this encounter [facility] Work Phone: Hospital Discharge instructions* Attachments The following attachments cannot be sent through Care Everywhere. * Hand Pain: Pediatric (Stateless) [facility] Phone: Discharge Instructions * Instructions* Mikey Mcdaniels, DO - 04/19/2019 Rest. Ice 15 minute every 4-6 hours. Use sling as needed. * Attachments The following attachments cannot be sent through Care Everywhere. * Bruises: Teen (Stateless) documented in this encounter Assessments Diagnosis Contusion of right elbow, initial encounter- Primary Summary Purpose Family History No Family History Records FoundNo Family History Records FoundNo Family History Records FoundNo Family History Records FoundNo Family History Records FoundNo Family History Records FoundNo Family History Records Found Advance Directives No Advanced Directives Records FoundNo Advanced Directives Records FoundNo Advanced Directives Records FoundNo Advanced Directives Records FoundNo Advanced Directives Records FoundNo Advanced Directives Records FoundNo Advanced Directives Records Found Reason for Referral Specialty Diagnoses / Procedures Referred By Contblu t Referred To Contact Allergy Diagnoses Pressure urticaria Procedures CONSULT TO ALLERGY/IMMUNOLOGY OFFICE/OUTPATIENT [facility] 60-74 MINUTES Nilton Tony MD [address] [place] [address] Referral ID Status Reason Start Date Expiration Date Visits Requested Visits Authorized [id number] Authorized PCP Requested Referral 04/17/2022 04/17/2023 1 1 Additional Source Comments Reason for Visit (unrecogniz ed section and content) Reason Comments Hand Injury Reason Comments Referral Request Reason Comments Well Child 16 yr [facility]; discuss p ossible allergic reactions. Pt has photos of reactions. Pt would like to discuss dose increase of medication. Reason Comments Med Change Request Reason Comments Medication Follow-up Discuss medication. Reason Comments Results Results (not normal) Reason Comments Heartburn ? Heartburn, occurri ng multiple times per week, mainly at night with a few occurrences during the day.. Med check Discuss possible yolanda ction to anxiety medication. Redness on hands, arms, spreading to neck and chest. Pt states the medication causes he bottom teeth to chatter and she feel dizzy. Pt states that the reaction to the medication happens a few hours after taking her daily dose, states she has been on this medication for a couple of years, and this has begun out of the blue . Reason Comments New Patient Evaluation Specialty Diagnoses / Procedures Referred By Nirmala t Referred To Contact Allergy Diagnoses Pressure urticaria Procedures CONSULT TO ALLERGY/IMMUNOLOGY OFFICE/OUTPATIENT [facility] 60-74 MINUTES Nilton Tony MD [address] [place] [address] Referral ID Status Reason Start Date Expiration Date V isits Requested Visits Authorized [id number] Closed PCP Requested Referral 04/17/2022 04/17/2023 1 1 Reason Comments Established Patient Urticaria 1 month f/ u Reason Comments Med Check Med check - Pt has b een off Zoloft since last appointment, would like to restart. Reason Comments Sinusitis Nasal drainage, snee zing, coughing, has taken allergy meds and benadryl with no help, Reason Comments Sore Throat Ear pain in right ea r, stuffy nose x 2 days Reason Comments Urinary Frequency Pt has the urge to u rinate frequently. Pt stated she was seen by a physician recently and was being treated for a UTI but had to leave [place] for emergency purposes and has not been able to get her medication filled. Pt also has yellow and green discharge from her vagina. Flank Pain Pt is c/o right flan k pain radiating to her back. INFORMATION SOURCE (unrecogn ized section and content) DATE CREATED AUTHOR AUTHOR'S ORGANIZ ATION 03/21/2021 [facility] DATE CREATED AUTHOR AUTHOR'S ORGANIZ ATION 09/28/2022 [facility] DATE CREATED AUTHOR AUTHOR'S ORGANIZ ATION 10/03/2022 [employer] [facility] DATE CREATED AUTHOR AUTHOR'S ORGANIZ ATION 02/01/2023 [facility] DATE CREATED AUTHOR AUTHOR'S ORGANIZ ATION 07/31/[address] [facility] DATE CREATED AUTHOR AUTHOR'S ORGANAUGUST ATION 08/20/2023 [facility] Source Comments (unrecognize d section and content) In the event this informatio n is protected by the Federal Confidentiality of Alcohol and Drug Abuse Patient Records regulations: The Federal rules restrict any use of the information to criminally investigate or prosecute any alcohol or drug abuse patient.[facility] the event this information is protected by the Federal Confidentiality of Alcohol and Drug Abuse Patient Records regulations: The Federal rules restrict any use of the information to criminally investigate or prosecute any alcohol or drug abuse patient.[facility] HospitalIn the event this information is protected by the Federal Confidentiality of Alcohol and Drug Abuse Patient Records regulations: The Federal rules restrict any use of the information to criminally investigate or prosecute any alcohol or drug abuse patient.[facility] HospitalIn the event this information is protected by the Federal Confidentiality of Alcohol and Drug Abuse Patient Records regulations: The Federal rules restrict any use of the information to criminally investigate or prosecute any alcohol or drug abuse patient.[facility] HospitalIn the event this information is protected by the Federal Confidentiality of Alcohol and Drug Abuse Patient Records regulations: The Federal rules restrict any use of the information to criminally investigate or prosecute any alcohol or drug abuse patient.[facility] HospitalIn the event this information is protected by the Federal Confidentiality of Alcohol and Drug Abuse Patient Records regulations: The Federal rules restrict any use of the information to criminally investigate or prosecute any alcohol or drug abuse patient.[facility] HospitalIn the event this information is protected by the Federal Confidentiality of Alcohol and Drug Abuse Patient Records regulations: The Federal rules restrict any use of the information to criminally investigate or prosecute any alcohol or drug abuse patient.[facility] HospitalIn the event this information is protected by the Federal Confidentiality of Alcohol and Drug Abuse Patient Records regulations: The Federal rules restrict any use of the information to criminally investigate or prosecute any alcohol or drug abuse patient.[facility] HospitalIn the event this information is protected by the Federal Confidentiality of Alcohol and Drug Abuse Patient Records regulations: The Federal rules restrict any use of the information to criminally investigate or prosecute any alcohol or drug abuse patient.[facility] HospitalIn the event this information is protected by the Federal Confidentiality of Alcohol and Drug Abuse Patient Records regulations: The Federal rules restrict any use of the information to criminally investigate or prosecute any alcohol or drug abuse patient.[facility] HospitalIn the event this information is protected by the Federal Confidentiality of Alcohol and Drug Abuse Patient Records regulations: The Federal rules restrict any use of the information to criminally investigate or prosecute any alcohol or drug abuse patient.[facility] HospitalIn the event this information is protected by the Federal Confidentiality of Alcohol and Drug Abuse Patient Records regulations: The Federal rules restrict any use of the information to criminally investigate or prosecute any alcohol or drug abuse patient.[facility] HospitalIn the event this information is protected by the Federal Confidentiality of Alcohol and Drug Abuse Patient Records regulations: The Federal rules restrict any use of the information to criminally investigate or prosecute any alcohol or drug abuse patient.[facility] the event this information is protected by the Federal Confidentiality of Alcohol and Drug Abuse Patient Records regulations: The Federal rules restrict any use of the information to criminally investigate or prosecute any alcohol or drug abuse patient.[facility] Care Teams (unrecognized sec tion and content) [employer] Machine Operator Relationship Specialty Start Date End Date Nilton Tony MD [address] [place], [place] [id number] PCP - General 03 Yarn Bleaching Machine Operator Relationship Specialty Start Date End Date Nilton Tony MD [address] [place], [place] [id number] PCP - General 03 Y[employer] Bleaching Machine Operator Relationship Specialty Start Date End Date Nilton Tony MD [address] [place] [address] PCP - General 03 Yarn Bleaching Machine Operator Relationship Specialty Start Date End Date Nilton Tony MD [address] [place] [address] PCP - General 03 Yarn Bleaching Machine Operator Relationship Specialty Start Date End Date Nilton Tony MD [address] [place] [address] PCP - General 03 Yarn Bleaching Machine Operator Relationship Specialty Start Date End Date Nilton Tony MD [address] [place] [address] PCP - General 03 Yarn Bleaching Machine Operator Relationship Specialty Start Date End Date Nilton Tony MD [address] [place] [address] PCP - General 03 Yarn Bleaching Machine Operator Relationship Specialty Start Date End Date Nilton Tony MD [address] [place] [address] PCP - General 03 Yarn Bleaching Machine Operator Relationship Specialty Start Date End Date Nilton Tnoy MD [address] [place] [address] PCP - General 03 Y[employer] Bleaching Machine Operator Relationship Specialty Start Date End Date Nilton Tony MD [address] [place] [address] PCP - General 03 Yarn Bleaching Machine Operator Relationship Specialty Start Date End Date Nilton Tony MD [address] [place] [address] PCP - General 03 Y[employer] Bleaching Machine Operator Relationship Specialty Start Date End Date Nilton Tony [address] [place], [place] [address] PCP - General 04/10/16 Yarn Bleaching Machine Operator Relationship Specialty Start Date End Date Nilton Tony [address] [place], [place] [address] PCP - General 04/10/16 Yarn Bleaching Machine Operator Relationship Specialty Start Date End Date Becky Addison APRN.CNP [address] [place], [place] [id number] PCP - General Family Medicine 05/18/23 Yarn Bleaching Machine Operator Relationship Specialty Start Date End Date Generic Provider, No Assigned [facility] [address] [place] [id number] PCP - General Family Medicine 07/27/23 FOR RECORDS PERTAINING TO PATIENTS WHO ARE OR HAVE BEEN ENROLLED IN A CHEMICAL DEPENDENCY/SUBSTANCEABUSE PROGRAM, SOME INFORMATION MAY BE OMITTED. This clinical summary was aggregated from multiple sources. Caution should be exercised in using it in the provision of clinical care. This summary normalizes information from multiple sources, and as a consequence, information in this document may materially change the coding, format and clinical context of patient data. In addition, data may be omitted in some cases. CLINICAL DECISIONS SHOULD BE BASED ON THE PRIMARY CLINICAL RECORDS. [email or web address] [facility]. provides no warranty or guarantee of the accuracy or completeness of information in this document.
== END | disposition home or self-care (01) ==
LOC: US 16:37
PROVIDERS: Referring Provider Obstetrics & Gynecology; Visit Provider Obstetrics & Gynecology
DX: R10.2 Pelvic and perineal pain (principal)
CPT/HCPCS: 76830; 76856

== ENCOUNTER 2023-10-05 07:41 | Day surgery (SDC) | payer BC, SELFPAY ==
--- OUTSIDE RECORDS SUMMARY | 2023-10-05 07:48 | XMS RPT_ITS | CCD ---
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 Technical Name Role Phone Benjaminl, Nilton M Primary Care Provider PLAYL, NILTON M Primary Care Unavailable PLAYL, [...] PROVIDER, NO ASSIGNED PCP Primary Care Unavailable PLAYL, NILTON M Primary Care Unavailable PLAYL, NILTON M Primary Care Unavailable PLAYL, NILTON M Attending Unavailable PLAYL, NILTON M Primary Care Unavailable REKHA HICKS Attending Unavailable BECKY ADDISON Primary Care Unavailable BEKCY ADDISON Primary Care Unavailable DINA ANGELA Primary Care Unavailable Allergies Allergy Classification Reported Allergen(s) Allergy Type Date of Onset Reaction(s) Facility (10 sources) Latex; Translations: [LATEX] Drug Allergy 2 Hives, Itching, Rash [facility] (6 sources) Sertraline Drug Allergy 3 Hives [facility] Work Phone: (4 sources) Latex Allergy to substance 2 Hives, Itching [facility] Medications Current Medications Medication Drug Class(es) Dates [...] Date Documented Da te Episodic/Chronic Allergic reactions (15 sources) Atopic dermatitis; Translations: [Atopic dermatitis, unspecified] Onset: 06-12-2016 06-12-2016 Chronic Anxiety disorders (19 sources) Anxiety; Translations: [Anxiety disorder, unspecified] Onset: [...] [Diarrhea, unspecified] Episodic Other upper respiratory infections (5 sources) Viral upper respiratory tract infection; Translations: [...] Episodic Other nutritional; endocrine; and metabolic disorders (17 sources) Childhood obesity; Translations: [Body mass index [...] Test Name Value Interpretation Reference Range Facil it Vital Signs Date Time Vital Sign Value Performing Clinician Facility 09-30-2023 14:53-0500 Body temperature 97.11 [degF] Maria G Mcfarland APRN.VRT MECHANIC Work Phone: [facility] 09-30-2023 14:53-0500 Body weight 82.2 kg Maria G Mcfarland APRN.CNP Work Phone: [facility] 09-30-2023 14:53-0500 Diastolic blood pressure 73 mm[Hg] Maria G Mcfarland APRN.CNP Work Phone: [facility] 09-30-2023 14:53-0500 Heart rate 80 /min Maria G Mcfarland APRN.CNP Work Phone: [facility] 09-30-2023 14:53-0500 SaO2% (BldA) [Mass fraction] 98 % Maria G Mcfarland PLASTER HELPER.VRT MECHANIC Work Phone: [facility] 09-30-2023 14:53-0500 Systolic blood pressure 101 mm[Hg] Maria G Mcfarland PLASTER HELPER.VRT MECHANIC Work Phone: [facility] 07-27-2023 11:32-0500 SaO2% (BldA) [Mass fraction] 96 % Froylan Sahni DO Work Phone: [facility] 07-27-2023 11:19-0500 Body height 160 cm Froylan Sahni DO Work Phone: [facility] 07-27-2023 11:19-0500 Body mass index (BMI) [Ratio] 32.77 kg/m2 Froylan Sahni DO Work Phone: [facility] 07-27-2023 11:19-0500 Body temperature 98.4 [degF] Froylan Sahni DO Work Phone: [facility] 07-27-2023 11:19-0500 Body weight 83.92 kg Froylan Sahni DO Work Phone: [facility] 07-27-2023 11:19-0500 Diastolic blood pressure 74 mm[Hg] Froylan Sahni DO Work Phone: [facility] 07-27-2023 11:19-0500 Heart rate 86 /min Froylan Sahni DO Work Phone: [facility] 07-27-2023 11:19-0500 Respiratory rate 16 /min Froylan Sahni DO Work Phone: [facility] 07-27-2023 11:19-0500 Systolic blood pressure 123 mm[Hg] Froylan Sahni DO Work Phone: [facility] 06-07-2023 15:26-0400 Body temperature 97.81 [degF] Stefany Mercer PLASTER HELPER.VRT MECHANIC Work Phone: [facility] 06-07-2023 15:26-0400 Body weight 85.46 kg Stefany Mercer PLASTER HELPER.VRT MECHANIC Work Phone: [facility] 06-07-2023 15:26-0400 Diastolic blood pressure 68 mm[Hg] Stefany Ruslan PLASTER HELPER.VRT MECHANIC Work Phone: [facility] 06-07-2023 15:26-0400 Heart rate 91 /min Stefany Ruslan PLASTER HELPER.VRT MECHANIC Work Phone: [facility] 06-07-2023 15:26-0400 Respiratory rate 20 /min Stefany Ruslan PLASTER HELPER.VRT MECHANIC Work Phone: [facility] 06-07-2023 15:26-0400 SaO2% (BldA) [Mass fraction] 98 % Stefany Mercer PLASTER HELPER.VRT MECHANIC Work Phone: [facility] 06-07-2023 15:26-0400 Systolic blood pressure 104 mm[Hg] Stefany Ruslan PLASTER HELPER.VRT MECHANIC Work Phone: [facility] 04-28-2023 16:22-0400 Body temperature 98.4 [degF] Duglas Jaquez MD Work Phone: [facility] 04-28-2023 16:22-0400 Diastolic blood pressure 73 mm[Hg] Duglas Jaquez MD Work Phone: [facility] 04-28-2023 16:22-0400 Heart rate 90 /min Duglas Jaquez MD Work Phone: [facility] 04-28-2023 16:22-0400 Respiratory rate 18 /min Duglas Jaquez MD Work Phone: [facility] 04-28-2023 16:22-0400 SaO2% (BldA) [Mass fraction] 98 % Duglas Jaquez MD Work Phone: [facility] 04-28-2023 16:22-0400 Systolic blood pressure 122 mm[Hg] Duglas Jaquez MD Work Phone: [facility] 01-14-2023 14:20-0400 Body height 159.8 cm Denice Ball PLASTER HELPER.VRT MECHANIC Work Phone: [facility] 01-14-2023 14:20-0400 Body temperature 97.81 [degF] Denice Ball PLASTER HELPER.VRT MECHANIC Work Phone: [facility] 01-14-2023 14:20-0400 Body weight 88.41 kg Denice Ball PLASTER HELPER.VRT MECHANIC Work Phone: [facility] 01-14-2023 14:20-0400 Diastolic blood pressure 76 mm[Hg] Denice Ball PLASTER HELPER.VRT MECHANIC Work Phone: [facility] 01-14-2023 14:20-0400 Heart rate 86 /min Denice Ball PLASTER HELPER.VRT MECHANIC Work Phone: [facility] 01-14-2023 14:20-0400 Respiratory rate 19 /min Denice Ball PLASTER HELPER.VRT MECHANIC Work Phone: [facility] 01-14-2023 14:20-0400 SaO2% (BldA) [Mass fraction] 97 % Denice Ball PLASTER HELPER.VRT MECHANIC Work Phone: [facility] 01-14-2023 14:20-0400 Systolic blood pressure 121 mm[Hg] Denice Ball PLASTER HELPER.VRT MECHANIC Work Phone: [facility] 10-08-2022 15:18-0500 Body height 160 cm Nilton Tony MD Work Phone: [facility] 10-08-2022 15:18-0500 Body mass index (BMI) [Percentile] Per age and sex 95.7 % Nilton Tony MD Work Phone: [facility] 10-08-2022 15:18-0500 Body temperature 98.4 [degF] Nilton Tony MD Work Phone: [facility] 10-08-2022 15:18-0500 Body weight 81.38 kg Nilton Tony MD Work Phone: [facility] 10-08-2022 15:18-0500 Heart rate 90 /min Nilton Tony MD Work Phone: [facility] 10-08-2022 15:18-0500 Respiratory rate 18 /min Nilton Tony MD Work Phone: [facility] 10-07-2022 09:11-0500 Body weight 81.65 kg Rekha Hicks MD Work Phone: [facility] 10-07-2022 09:11-0500 Diastolic blood pressure 76 mm[Hg] Rekha Hicks MD Work Phone: [facility] 10-07-2022 09:11-0500 Heart rate 75 /min Rekha Hicks MD Work Phone: [facility] 10-07-2022 09:11-0500 SaO2% (BldA) [Mass fraction] 97 % Rekha Hicks MD Work Phone: [facility] 10-07-2022 09:11-0500 Systolic blood pressure 117 mm[Hg] Rekha Hicks MD Work Phone: [facility] 09-02-2022 09:45-0500 Diastolic blood pressure 78 mm[Hg] Rekha Hicks MD Work Phone: [facility] 09-02-2022 09:45-0500 Heart rate 73 /min Rekha Hicks MD Work Phone: [facility] 09-02-2022 09:45-0500 SaO2% (BldA) [Mass fraction] 97 % Rekha Hicks MD Work Phone: [facility] 09-02-2022 09:45-0500 Systolic blood pressure 126 mm[Hg] Rekha Hicks MD Work Phone: [facility] 08-21-2022 16:26-0500 Body temperature 97.5 [degF] Nilton Tony MD Work Phone: [facility] 08-21-2022 16:26-0500 Body weight 83.23 kg Nilton Tony MD Work Phone: [facility] 08-21-2022 16:26-0500 Heart rate 84 /min Nilton Tony MD Work Phone: [facility] 08-21-2022 16:26-0500 Respiratory rate 18 /min Nilton Tony MD Work Phone: [facility] 05-19-2022 13:45-0400 Body temperature 97.7 [degF] Nilton Tony MD Work Phone: [facility] 05-19-2022 13:45-0400 Body weight 80.38 kg Nilton Tony MD Work Phone: [facility] 05-19-2022 13:45-0400 Diastolic blood pressure 60 mm[Hg] Nilton Tony MD Work Phone: [facility] 05-19-2022 13:45-0400 Heart rate 72 /min Nilton Tony MD Work Phone: [facility] 05-19-2022 13:45-0400 Respiratory rate 20 /min Nilton Tony MD Work Phone: [facility] 05-19-2022 13:45-0400 Systolic blood pressure 102 mm[Hg] Nilton Tony MD Work Phone: [facility] 04-17-2022 13:12-0400 Body height 161.2 cm Nilton Tony MD Work Phone: [facility] 04-17-2022 13:12-0400 Body mass index (BMI) [Percentile] Per age and sex 95.32 % Nilton Toyn MD Work Phone: [facility] 04-17-2022 13:12-0400 Body temperature 98.2 [degF] Nilton Tony MD Work Phone: [facility] 04-17-2022 13:12-0400 Body weight 80.51 kg Nilton Tony MD Work Phone: [facility] 04-17-2022 13:12-0400 Diastolic blood pressure 62 mm[Hg] Nilton Tony MD Work Phone: [facility] 04-17-2022 13:12-0400 Heart rate 80 /min Nilton Tony MD Work Phone: [facility] 04-17-2022 13:12-0400 Respiratory rate 18 /min Nilton Tony MD Work Phone: [facility] 04-17-2022 13:12-0400 Systolic blood pressure 112 mm[Hg] Nilton Tony MD Work Phone: [facility] 12-07-2020 16:43-0400 Body temperature 98.1 [degF] Rodrick Figueroa MD Work Phone: [facility] Work Phone: 12-07-2020 16:43-0400 Body weight 62.3 kg Rodrick Figueroa MD Work Phone: [facility] Work Phone: 12-07-2020 16:43-0400 Diastolic blood pressure 79 mm[Hg] Rodrick Figueroa MD Work Phone: [facility] Work Phone: 12-07-2020 16:43-0400 Heart rate 91 /min Rodrick Figueroa MD Work Phone: [facility] Work Phone: 12-07-2020 16:43-0400 Respiratory rate 12 /min Rodrick Figueroa MD Work Phone: [facility] Work Phone: 12-07-2020 16:43-0400 SaO2% (BldA) [Mass fraction] 100 % Rodrick Figueroa MD Work Phone: [facility] Work Phone: 12-07-2020 16:43-0400 Systolic blood pressure 116 mm[Hg] Rodrick Figueroa MD Work Phone: [facility] Work Phone: 04-19-2019 22:11-0400 Body Temperature 98.6 [degF] [facility] [place] 04-19-2019 22:11-0400 Body weight 57.8 kg [facility] [place] 04-19-2019 22:11-0400 BP Diastolic 81 mm[Hg] [facility], [place] 04-19-2019 22:11-0400 BP Systolic 129 mm[Hg] Mikey Gaitan [facility], [place]OB 04-19-2019 22:11-0400 Pulse (Heart Rate) 75 /min Mikey Quintana [facility], [place] 04-19-2019 22:11-0400 Pulse Oximetry 100 % Mikey Gaitan [facility], [place]AKOB 04-19-2019 22:11-0400 Respiratory Rate 18 /min Mikey Gaitan [facility], JAKOB Encounters Encounter Date Encounter Type Care Provider Facility Start: 09-30-2023 End: 09-30-2023 ambulatory BECKY ASYATUAN Facility:[facility] Start: 09-30-2023 End: 09-30-2023 Office outpatient visit 25 minutes Maria G Mcfarland APRN.VRT MECHANIC Work Phone: [facility] Procedures Date Procedure Procedure Detail Performing Clinician Start: 09-30-2023 STREP A MOLECULAR (POC) Maria G Mcfarland APRN.VRT MECHANIC Work Phone: Start: 07-27-2023 Bacteria identified in Urine by [...] 06-07-2023 STREP A MOLECULAR (POC) Stefany Mercer APRN.VRT MECHANIC Work Phone: Start: 04-28-2023 Radex fingr minimum [...] lt abnormal Abnormal laboratory test result Nilton oTny MD Work Phone: Plan of Treatment Date Care Activity Detail Author Start: 10-17-2053 Zoster Vaccines (1 of 2) Zoste r Vaccines (1 of 2) [facility] Start: 12-16-2025 DTaP/Tdap/Td Vaccine s (7 - Td or Tdap) DTaP/Tdap/Td Vaccines (7 - Td or Tdap) [facility] Start: 12-16-2025 Urine microalbumin profile [facility] Start: 09-26-2023 CHLAMYDIA SCREENING (18-24) CHLAMYDIA SCREENING (18-24) [facility] Start: 09-26-2023 GC (GONORRHEA) SCREE BARRINGTON (18-24) GC (GONORRHEA) SCREENING (18-24) [facility] Start: 09-26-2023 Screening for Chlamy matthew trachomatis Chlamydia Screening (18-24) [facility] Start: 08-16-2023 Depression Assessment Depression Ass essment [facility] Start: 05-18-2023 CHLAMYDIA SCREENING (18-24) CHLAMYDIA SCREENING (18-24) [facility] Start: 05-18-2023 GC (GONORRHEA) SCREE BARRINGTON (18-24) GC (GONORRHEA) SCREENING (18-24) [facility] Start: 04-17-2023 Adult depression screening assessment DEPRESSION SCREENING [facility] Start: 04-16-2023 Covid-19 Vaccine ( season) Covid-19 Vaccine () [facility] Start: 04-16-2023 Influenza vaccination Influenza Vacc ine (#1) [facility] Start: 10-08-2022 End: 10-08-2023 Fasting glucose [Mass/volume] in Serum or Plasma GLUCOSE FASTING BLD Lab Routine BMI (body mass index), pediatric, greater than or equal to 95% for age Expected: 10/08/2022, Expires: 10/08/2023 [facility] Work Phone: Immunizations Immunization Date Immunization Notes Care Provider [facility] 04-17-2022 influenza, injectabl e, quadrivalent, contains preservative Nilton Tony MD Work Phone: [facility] 04-17-2022 influenza virus vacc ine, unspecified formulation Duglas Jaquez MD Work Phone: [facility] 02-01-2021 COVID-19 vaccine, ag e 12+ yr (PFIZER-BIONTECH - PURPLE TOP) Nilton Tony MD Work Phone: [facility] 01-11-2021 COVID-19 vaccine, ag e 12+ yr (PFIZER-BIONTECH - PURPLE TOP) Nilton Tony MD Work Phone: [facility] 07-27-2020 influenza, injectabl e, quadrivalent, preservative free Nilton Tony MD Work Phone: [facility] 06-24-2020 influenza, seasonal, injectable Nilton Tony MD Work Phone: [facility] 03-08-2020 meningococcal polysaccharide (groups A, C, Y and W-135) diphtheria toxoid conjugate vaccine (MCV4P) Nilton Tony MD Work Phone: [facility] 08-17-2019 influenza, injectabl e, quadrivalent, preservative free Nilton Tony MD Work Phone: [facility] 04-26-2018 influenza, injectabl e, quadrivalent, contains preservative Nilton Tony MD Work Phone: [facility] Work Phone: 06-11-2017 influenza, injectabl e, quadrivalent, preservative free Nilton Tony MD Work Phone: [facility] Work Phone: 05-15-2017 influenza, seasonal, injectable Nilton Tony MD Work Phone: [facility] 06-12-2016 Human Papillomavirus 9-valent vaccine Nilton Tony MD Work Phone: [facility] 06-12-2016 influenza, injectabl e, quadrivalent, contains preservative Nilton Tony MD Work Phone: [facility] 12-17-2015 Human Papillomavirus 9-valent vaccine Nilton Tony MD Work Phone: [facility] 12-17-2015 meningococcal polysaccharide (groups A, C, Y and W-135) diphtheria toxoid conjugate vaccine (MCV4P) Nilton Tony MD Work Phone: [facility] 12-17-2015 tetanus toxoid, redu judd diphtheria toxoid, and acellular pertussis vaccine, adsorbed Nilton Tony MD Work Phone: [facility] 06-20-2015 influenza, injectabl e, quadrivalent, contains preservative Nilton Tony MD Work Phone: [facility] Work Phone: 06-04-2014 influenza, live, intranasal, quadrivalent Nilton Tony MD Work Phone: [facility] Work Phone: 08-01-2012 influenza virus vacc ine, live, attenuated, for intranasal use Nilton Tony MD Work Phone: [facility] 05-31-2010 influenza virus vacc ine, live, attenuated, for intranasal use Nilton Tony MD Work Phone: [facility] Work Phone: 07-18-2009 novel Influenza-H1N1 -09, live virus for nasal administration Nilton Tony MD Work Phone: [facility] 05-30-2009 influenza virus vacc ine, live, attenuated, for intranasal use Nilton Tony MD Work Phone: [facility] Work Phone: 11-05-2008 diphtheria, tetanus toxoids and acellular pertussis vaccine Nilton Tony MD Work Phone: [facility] Work Phone: 11-05-2008 measles, mumps and rubella virus vaccine Nilton Tony MD Work Phone: [facility] Work Phone: 11-05-2008 poliovirus vaccine, inactivated Nilton Tony MD Work Phone: [facility] Work Phone: 11-05-2008 varicella virus vaccine Blade Tony MD Work Phone: [facility] Work Phone: 07-04-2008 influenza virus vacc ine, unspecified formulation Nilton Tony MD Work Phone: [facility] Work Phone: 04-14-2008 hepatitis A vaccine, unspecified formulation Nilton Tony MD Work Phone: [facility] Work Phone: 06-30-2007 influenza virus vacc ine, unspecified formulation Nilton Tony MD Work Phone: [facility] Work Phone: 11-08-2006 hepatitis A vaccine, unspecified formulation Nilton Tony MD Work Phone: [facility] Work Phone: 06-14-2006 influenza virus vacc ine, unspecified formulation Nilton Tony MD Work Phone: [facility] Work Phone: 02-27-2005 diphtheria, tetanus toxoids and acellular pertussis vaccine Nilton Tony MD Work Phone: [facility] Work Phone: 02-27-2005 haemophilus influenz ae type b vaccine, HbOC conjugate Nilton Tony MD Work Phone: [facility] Work Phone: 10-20-2004 measles, mumps and rubella virus vaccine Nilton Tony MD Work Phone: [facility] Work Phone: 10-20-2004 pneumococcal conjuga te vaccine, 7 valent Nilton Tony MD Work Phone: [facility] Work Phone: 10-20-2004 varicella virus vaccine Blade Tony MD Work Phone: [facility] Work Phone: 07-21-2004 influenza virus vacc ine, unspecified formulation Nilton Tony MD Work Phone: [facility] Work Phone: 06-12-2004 influenza virus vacc ine, unspecified formulation Nilton Tony MD Work Phone: [facility] Work Phone: 05-01-2004 DTaP-hepatitis B and poliovirus vaccine Nilton Tony MD Work Phone: [facility] Work Phone: 05-01-2004 haemophilus influenz ae type b vaccine, HbOC conjugate Nilton Tony MD Work Phone: [facility] Work Phone: 05-01-2004 pneumococcal conjuga te vaccine, 7 valent Nilton Tony MD Work Phone: [facility] Work Phone: 02-25-2004 diphtheria, tetanus toxoids and acellular pertussis vaccine Nilton Tony MD Work Phone: [facility] Work Phone: 02-25-2004 haemophilus influenz ae type b vaccine, HbOC conjugate Nilton Tony MD Work Phone: [facility] Work Phone: 02-25-2004 poliovirus vaccine, inactivated Nilton Tony MD Work Phone: [facility] Work Phone: 2003 DTaP-hepatitis B and poliovirus vaccine Nilton Tony MD Work Phone: [facility] Work Phone: 2003 haemophilus influenz ae type b vaccine, HbOC conjugate Nilton Tony MD Work Phone: [facility] Work Phone: 2003 pneumococcal conjuga te vaccine, 7 valent Nilton Tony MD Work Phone: [facility] Work Phone: 2003 hepatitis B vaccine, pediatric or pediatric/adolescent dosage Nilton Tony MD Work Phone: [facility] Work Phone: Payers Date Payer Category Payer Worker's Compensation GENERIC [employer] GENER[employer] WORKERS' COMP [id number] 2023-Present [phone] [address] [place] [address] Worker's Comp [id number] 2022 Unknown [id number] 2013 Unknown [id number] 2013 Unknown [id number] 2003 Unknown [id number] 2003 Unknown [id number] 2003 Unknown [id number] 2003 Unknown [id number] 2003 Unknown [id number] 2003 Unknown [id number] Social History Date Type Detail Facility Start: 04-19-2019 End: 04-07-2022 Tobacco smoking status NHIS Never smoker [facility] Start: 04-19-2019 End: 02-09-2023 Alcohol intake No [employer] Start: 2003 Sex Assigned At Not on file [employer] [facility] Start: 12-07-2020 End: 04-07-2022 Tobacco use and exposure Never used [facility] Start: 12-07-2020 End: 04-28-2023 Alcohol intake Current non-drinker of alcohol (finding) [employer] Phone: Start: 04-07-2022 End: 07-27-2023 Exposure to SARS-CoV-2 (event) Not sure [facility] Start: 04-17-2022 Alcohol intake Not Asked [facility] Start: 04-17-2022 End: 07-29-2022 History SDOH Alcohol Frequency 1 [facility] Start: 04-17-2022 End: 07-29-2022 History SDOH Alcohol Std Drinks 0 [facility] Start: 04-17-2022 End: 07-29-2022 History SDOH Social Connections Phone 5 [facility] Start: 04-17-2022 End: 07-29-2022 History SDOH Social Connections Get Together 3 [facility] Start: 04-17-2022 End: 07-29-2022 History SDOH Social Connections Membership 2 [facility] Start: 04-17-2022 End: 07-29-2022 History SDOH Social Connections Living 98 [facility] Start: 04-07-2022 Tobacco Comment quit [facility] Start: 2003 Sex Assigned At Female [facility] Start: 05-19-2022 End: 06-07-2023 Alcohol intake Ex-drinker (finding) [facility] Start: 05-25-2022 End: 06-04-2022 Exposure to SARS-CoV-2 (event) Unable to assess [facility] Start: 07-29-2022 History SDOH Social Connections Living 7 [facility] Start: 07-29-2022 History SDOH Housing Places Lived 4 [facility] Start: 10-02-2022 End: 02-09-2023 History of Social function [facility] [employer] How often to you hav e a drink containing alcohol? Never [facility] Average Number of Drinks Not on file [facility] Do you belong to any clubs or organizations such as mosque groups, unions, fraternal or athletic groups, or school groups? No [facility] Are you now , , , , never or living with a partner? Never [facility] Do you feel stress - tense, restless, nervous, or anxious, or unable to sleep at night because your mind is troubled all the time - these days [OSQ] To some extent [facility] (I/We) worried wheth er (my/our) food would run out before (I/we) got money to buy more. Never true [facility] At any time in the p ast 12 months, were you homeless or living in care home [including now]? Yes [facility] Start: 01-30-2021 Gender identity Identifies as female gender (finding) [facility] Start: 01-30-2021 Sexual orientation Heterosexual (finding) [facility] Clinical Notes 04-26-2018 to 09-30-2023 Maria G Mcfarland APRN.VRT MECHANIC - 09/30/2023 2:48 PM ESTPatient InstructionsStarlen Sahni, DO - 07/27/2023 11:17 AM ESTStepsheryl Sahni, DO - 07/27/2023 11:17 AM ESTConsultation (Routine) - Authorized Note Date & Type Note Facility 09-30-2023 Note HNO ID: [id number] Author: MARIA G MCFARLAND APRN.VRT MECHANIC Service: ? Author Type: Nurse Practitioner Type: Progress Notes Filed: 09/30/2023 15:16 Note Text: This note was created using NoteWriter. Subjective Jasmyn Reagan is a 17 year old female. HPI by patient: Jasmyn Reagan is a 17 year old presenting to the office with the complaint of viral symptoms. Started 2 days ago. Associated symptoms include stuffy nose, sore throat, itchy ears, bilateral ear pain, cough, congestion, headache, neck pain, body aches, and fatigue. Denies gi symptoms and fever. Covid Immunization Dates Overdue - Covid-19 Vaccine () Overdue since 04/16/2023 02/01/2021 Imm Admin: COVID-19 original vaccine, age 12+ yr, monovalent (PFIZER-BIONTECH - PURPLE TOP) 01/11/2021 Imm Admin: COVID-19 original vaccine, age 12+ yr, monovalent (PFIZER-BIONTECH - PURPLE TOP) Sick contacts: yes. Smoking history/second hand smoke: none. OTC not used any of her symptoms. No antibiotic use in the last 60 [...] Alcohol use: Not Currently Drug use: Never Active Ambulatory Problems Environmental allergies Date Noted: 06/25/2014 Atopic dermatitis Date Noted: 06/12/2016 Anxiety Date Noted: 02/13/2021 Pressure urticaria Date Noted: 04/17/2022 BMI (body mass index), pediatric, greater than or equal to 95% for age Date Noted: 04/17/2022 Chronic urticaria Date Noted: 09/04/2022 Resolved Ambulatory Problems Migraine headache Date Noted: 06/25/2014 Overweight Date Noted: 06/12/2016 Viral warts Date Noted: 04/26/2018 Past Medical History: 09/2014: Menstrual syndrome 11/2016: Thumb fracture Review of Systems Constitutional: Positive for chills and fatigue. Negative for fever. HENT: Positive for congestion, ear pain, sinus pressure and sore throat. Eyes: Negative. Respiratory: Positive for cough. Cardiovascular: Negative. Gastrointestinal: Negative. Endocrine: Negative. Genitourinary: Negative. Musculoskeletal: Positive for myalgias and neck pain. Skin: Negative. Neurological: Positive for headaches. Hematological: Negative. Objective BP 101/73 Pulse 80 Temp 36.2 ?C (97.1 ?F) Wt 82.2 kg (181 lb 3.5 oz) LMP 08/17/2021 SpO2 98% BMI 32.20 kg/m? Physical Exam Vitals reviewed. Constitutional: General: She is not in acute distress. Appearance: She is not ill-appearing, toxic-appearing or diaphoretic. HENT: Head: Normocephalic and atraumatic. Right Ear: Tympanic membrane, ear canal and external ear normal. Left Ear: Tympanic membrane, ear canal and external ear normal. Nose: No rhinorrhea. Right Sinus: Maxillary sinus tenderness present. No frontal sinus tenderness. Left Sinus: Maxillary sinus tenderness present. No frontal sinus tenderness. Mouth/Throat: Mouth: Mucous membranes are moist. Pharynx: Oropharynx is clear. No oropharyngeal exudate or posterior oropharyngeal erythema. Cardiovascular: Rate and Rhythm: Normal rate and regular rhythm. Pulmonary: Effort: Pulmonary effort is normal. Breath sounds: Normal breath sounds. Lymphadenopathy: Head: Right side of head: No submandibular or tonsillar adenopathy. Left side of head: No submandibular or tonsillar adenopathy. Cervical: No cervical adenopathy. Psychiatric: Behavior: Behavior is cooperative. Assessment and Plan (J02.9) Pharyngitis, unspecified etiology (primary encounter diagnosis) Plan: STREP A MOLECULAR (POC), Jntwsooeisarsww-Nslvsaqnt-FE (BROMFED DM) 2-30-10 mg/5 mL syrup, fluticasone (FLONASE ALLERGY RELIEF) 50 mcg/actuation nasal spray, COVID AND INFLUENZA A/B AND RSV NAAT, ROUTINE (J06.9) Viral upper respiratory tract infection with cough Plan: B (more content not included)... [facility] 09-30-2023 History of Presen t illness Narrative This note was created using NoteWriter. Subjective Jasmyn Reagan is a 17 year old female. HPI by patient: Jasmyn Reagan is a 17 year old presenting to the office with the complaint of viral symptoms. Started 2 days ago. Associated symptoms include stuffy nose, sore throat, itchy ears, bilateral ear pain, cough, congestion, headache, neck pain, body aches, and fatigue. Denies gi symptoms and fever. Covid Immunization Dates Overdue - Covid-19 Vaccine ( season) Overdue since 04/16/2023 02/01/2021 Imm Admin: COVID-19 original vaccine, age 12+ yr, monovalent (PFIZER-BIONTECH - PURPLE TOP) 01/11/2021 Imm Admin: COVID-19 original vaccine, age 12+ yr, monovalent (PFIZER-BIONTECH - PURPLE TOP) Sick contacts: yes. Smoking history/second hand smoke: none. OTC not used any of her symptoms. No antibiotic use in the last 60 [...] Alcohol use: Not Currently Drug use: Never Active Ambulatory Problems Environmental allergies Date Noted: 06/25/2014 Atopic dermatitis Date Noted: 06/12/2016 Anxiety Date Noted: 02/13/2021 Pressure urticaria Date Noted: 04/17/2022 BMI (body mass index), pediatric, greater than or equal to 95% for age Date Noted: 04/17/2022 Chronic urticaria Date Noted: 09/04/2022 Resolved Ambulatory Problems Migraine headache Date Noted: 06/25/2014 Overweight Date Noted: 06/12/2016 Viral warts Date Noted: 04/26/2018 Past Medical History: 09/2014: Menstrual syndrome 11/2016: Thumb fracture Review of Systems Constitutional: Positive for chills and fatigue. Negative for fever. HENT: Positive for congestion, ear pain, sinus pressure and sore throat. Eyes: Negative. Respiratory: Positive for cough. Cardiovascular: Negative. Gastrointestinal: Negative. Endocrine: Negative. Genitourinary: Negative. Musculoskeletal: Positive for myalgias and neck pain. Skin: Negative. Neurological: Positive for headaches. Hematological: Negative. Objective BP 101/73 Pulse 80 Temp 36.2 C (97.1 F) Wt 82.2 kg (181 lb 3.5 oz) LMP 08/17/2021 SpO2 98% BMI 32.20 kg/m Physical Exam Vitals reviewed. Constitutional: General: She is not in acute distress. Appearance: She is not ill-appearing, toxic-appearing or diaphoretic. HENT: Head: Normocephalic and atraumatic. Right Ear: Tympanic membrane, ear canal and external ear normal. Left Ear: Tympanic membrane, ear canal and external ear normal. Nose: No rhinorrhea. Right Sinus: Maxillary sinus tenderness present. No frontal sinus tenderness. Left Sinus: Maxillary sinus tenderness present. No frontal sinus tenderness. Mouth/Throat: Mouth: Mucous membranes are moist. Pharynx: Oropharynx is clear. No oropharyngeal exudate or posterior oropharyngeal erythema. Cardiovascular: Rate and Rhythm: Normal rate and regular rhythm. Pulmonary: Effort: Pulmonary effort is normal. Breath sounds: Normal breath sounds. Lymphadenopathy: Head: Right side of head: No submandibular or tonsillar adenopathy. Left side of head: No submandibular or tonsillar adenopathy. Cervical: No cervical adenopathy. Psychiatric: Behavior: Behavior is cooperative. Assessment and Plan (J02.9) Pharyngitis, unspecified etiology (primary encounter diagnosis) Plan: STREP A MOLECULAR (POC), Ekktwsrntcejion-Ljqavwmlf-NX (BROMFED DM) 2-30-10 mg/5 mL syrup, fluticasone (FLONASE ALLERGY RELIEF) 50 mcg/actuation nasal spray, COVID & INFLUENZA A/B & RSV NAAT, ROUTINE (J06.9) Viral upper respiratory tract infection with cough Plan: Tbqdyfpbhvvvtyr-Iqeevknuz-VB (BROMFED DM) 2-30-10 mg/5 mL syrup, fluticasone (FLONASE ALLERGY RELIEF) 50 mcg/actuation nasal spray Education on viral vs bacterial infections. Most viral infections will last 10 days, sometimes 14. It is possible to have back to back viral infections. An antibiotic will not treat a virus. Negative strep culture. -Covid/flu/rsv test for rule out, results in 24 hours, isolation in the interim. Result to mychart. -Bromfed for cough/congestion. -Drink lots of fluids and get plenty of rest. -Vaporizers, cool mist humidifiers, warm showers, and warm fluids help open respiratory and sinus passages. Clean humidifiers daily. -OTC tylenol/ibuprofen as directed on the bottle. -Saline nasal spray as needed. Flonase twice daily can help reduce inflammation through the sinus cavities. -Cough/deep breathing education, promote clearing of the airways and good lung expansion. -Make follow up with primary care for monitoring and resolution in symptoms. -Signs that warrant an ER evaluation: Sudden change/worsening in condition, lethargy, signs of dehydration, fever greater than 102 F that is not responding to Tylenol or ibuprofen (Motrin, Advil), drooling, difficulty swallowing, difficulty breathing, shortness of breath, chest pain, evidence of airway compromise (tripod position, neck extension, retractions), seizures, changes in mental status, or other concerns. The patient will pursue further outpatient evaluation with the primary care physician or another Urgent Care/Express Care as outlined in the after visit summary. The patient is agreeable to this plan of care and follow-up instructions have been explained in detail. The patient has received these instructions in written format and have expressed an understanding of the after visit summary. Medical Decision Making: Level: 4 - Moderate I spent a total of 20 minutes on the date of the service which included preparing to see the patient, jzee-yg-zrnk patient care, completing clinical documentation, obtaining and/or reviewing separately obtained history, performing a medically appropriate examination, counseling and educating the patient/family/caregiver, and ordering medications, tests, or procedures. This patient encounter involved the screening or treatment of novel coronavirus infection (COVID-19). documented in this encounter [facility] 09-30-2023 Instructions Maria G Mcfarland APRN.[facility] - 09/30/2023 2:47 PM EST (J02.9) Pharyngitis, unspecified etiology (primary encounter diagnosis) Plan: STREP A MOLECULAR (POC), Ispjqzkunhzzaij-Ujhreyenc-WL (BROMFED DM) 2-30-10 mg/5 mL syrup, fluticasone (FLONASE ALLERGY RELIEF) 50 mcg/actuation nasal spray, COVID & INFLUENZA A/B & RSV NAAT, ROUTINE (J06.9) Viral upper respiratory tract infection with cough Plan: Iaiwmukqzkkvprc-Mgdpmvmpe-FP (BROMFED DM) 2-30-10 mg/5 mL syrup, fluticasone (FLONASE ALLERGY RELIEF) 50 mcg/actuation nasal spray Education on viral vs bacterial infections. Most viral infections will last 10 days, sometimes 14. It is possible to have back to back viral infections. An antibiotic will not treat a virus. Negative strep culture. -Covid/flu/rsv test for rule out, results in 24 hours, isolation in the interim. Result to [facility]. -Bromfed for cough/congestion. -Drink lots of fluids and get plenty of rest. -Vaporizers, cool mist humidifiers, warm showers, and warm fluids help open respiratory and sinus passages. Clean humidifiers daily. -OTC tylenol/ibuprofen as directed on the bottle. -Saline nasal spray as needed. Flonase twice daily can help reduce inflammation through the sinus cavities. -Cough/deep breathing education, promote clearing of the airways and good lung expansion. -Make follow up with primary care for monitoring and resolution in symptoms. -Signs that warrant an ER evaluation: Sudden change/worsening in condition, lethargy, signs of dehydration, fever greater than 102 F that is not responding to Tylenol or ibuprofen (Motrin, Advil), drooling, difficulty swallowing, difficulty breathing, shortness of breath, chest pain, evidence of airway compromise (tripod position, neck extension, retractions), seizures, changes in mental status, or other concerns. documented in this encounter [facility] 07-27-2023 Emergency department Note HPI Chief Complaint Patient presents with Urinary Frequency Pt has the urge to urinate frequently. Pt stated she was seen by a physician recently and was being treated for a UTI but had to leave [place] for emergency purposes and has not been able to get her medication filled. Pt also has yellow and green discharge from her vagina. Flank Pain Pt is c/o right flank pain radiating to her back. Patient presents to the emergency department secondary to dysuria. The patient states that she has had frequency, urgency, and hesitancy for 2 months. She was residing in [place], living with a boyfriend, up until today. [...] it filled. She left the state of [place] and is now residing locally with her grandmother requesting treatment. History provided by: Patient and relative mainspring former arbor end used: No [place] Coma Scale Score: 15 Patient History Past [...] has an upcoming appointment to see a [facility] physician in [facility] tomorrow. She was given additional local referrals to primary care and [facility] as well. Instructed to follow-up as instructed and return for any other ongoing concerns. Procedure Procedures Froylan Sahni DO 07/27/23 1145 Froylan Sahni DO 07/27/23 1317 documented in this encounter [facility] Work Phone: 07-27-2023 Physician Emergency department Note HPI Chief Complaint Patient presents with Urinary Frequency Pt has the urge to urinate frequently. Pt stated she was seen by a physician recently and was being treated for a UTI but had to leave [place] for emergency purposes and has not been able to get her medication filled. Pt also has yellow and green discharge from her vagina. Flank Pain Pt is c/o right flank pain radiating to her back. Patient presents to the emergency department secondary to dysuria. The patient states that she has had frequency, urgency, and hesitancy for 2 months. She was residing in [place], living with a boyfriend, up until today. [...] it filled. She left the state of [place] and is now residing locally with her grandmother requesting treatment. History provided by: Patient and relative mainspring former arbor end used: No [place] Coma Scale Score: 15 Patient History Past [...] has an upcoming appointment to see a [facility] TESTER physician in [facility] tomorrow. She was given additional local referrals to primary care and [facility] TESTER as well. Instructed to follow-up as instructed and return for any other ongoing concerns. Procedure Procedures Froylan Sahni DO 07/27/23 1145 Froylan Sahni DO 07/27/23 131 [facility] Work Phone: Referral ID Status Reason Start Date Expiration Date Visits Requested Visits Authorized [id number] Authorized Specialty Services Required 3 07/26/2024 1 1 * Consultation (Routine) - Authorized Specialty Diagnoses / Procedures Referred By Nirmala harrison Referred To Contact Obstetrics and Gynecology Froylan Sahni DO [address] [place] [address] Referral ID Status Reason Start Date Expiration Date Visits Requested Visits Authorized [id number] Authorized Specialty Services Required 3 07/26/2024 1 1 [facility] Work Phone: [phone]) 888-986910-23-2023 NoteHNO ID: [id number] Author: Stefany Mercer APRN.[employer] Service: ? Author Type: Nurse Practitioner Type: Progress Notes Filed: 06/07/2023 4:03 PM Note Text: Subjective The history is provided by the patient. No foreign language stenographer was used. HPI Jasmyn Reagan is a [...] have confirmed and edited as necessary, the [facility] Review of Systems Constitutional: Negative for chills [...] detail warranting prompt ER evaluation. Stefany Mercer APRN.[facility]10-23-2023 History of Present illness Narrative* Stefany Mercer APRN.[employer] - 06/07/2023 3:31 PM EDT Subjective The history is provided by the patient. No foreign language stenographer was used. HPI Jasmyn Reagan is a [...] have confirmed and edited as necessary, the [facility] Review of Systems Constitutional: Negative for chills [...] indetail warranting prompt ER evaluation. Stefany Mercer APRN.[employer]RT MECH[employer]IC [facility] NoteHNO ID: [id number] Author: Dionne Mera APRN.[facility] Service: ? Author Type: Nurse Practitioner Type: [...] self does not want a squad called. [facility]09-13-2023 Hospital Discharge instructions* Discharge Instructions* Duglas Jaquez MD - 04/28/2023 4:44 PM EDT Images from the original note were not included. 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 It is your employer's responsibility [...] MD Work injuries require treatment by a [facility] certified provider. If follow-up care is needed please call one of the [facility] locations below. [place]: [phone], [address], [place] [address] [place]: [phone] [address] [place] [address] [place]: [phone] [place] [address] [place]: [phone] [address], [place] [address] [place]: [phone], [address], [place] [address] [place]: [phone], [place] [address] * Attachments The following attachments cannot be sent through Care Everywhere. * Sprained Thumb Discharge Instructions (Guamanian) documented in this [facility]09-13-2023 Emergency department Note* Duglas Jaquez MD - [...] PM PATIENT REFERRED TO: Nilton Tony [address] [facility] [phone] Schedule an appointment as soon as possible [...] Medicine Provider Duglas Jaquez MD 04/28/23 1650 * America Gallegos LPN - 04/28/2023 [...] light is within reach. documented in this [facility]09-13-2023 Emergency department Triage note* America Gallegos LPN [...] call light is within reach. [facility] [id number] Physician Emergency department Note* Duglas Jaquez MD [...] Physician EKG interpretation can be found in [facility] RADIOLOGY (Per Emergency Physician): X-ray right [...] PM PATIENT REFERRED TO: Nilton Tony [address] [facility] [id number] Schedule an appointment as soon as possible [...] Duglas Jaquez MD 04/28/23 1650 [facility] [id number] NoteHNO ID: [id number] Author: Denice Alonzo APRN.[employer] MECH[employer] Service: ? Author Type: Nurse Practitioner Type: Progress Notes Filed: 01/14/2023 2:36 PM Note Text: This note was created using Oneflareter. Subjective Jasmyn Reagan is a 17 year [...] Supportive care with fluids and rest - IUEVEOXUVRHHYDN-OBOQUSXDIMYQPVD-XU 2 MG-30 MG-10 MG/5 ML ORAL SYRUP - GUAIFENESIN ER 600 MG TABLET, EXTENDED RELEASE 12 HR - OXYMETAZOLINE 0.05 % NASAL SPRAY Denice Alonzo APRN.CNP Medical Decision Making: Problems: Moderate: New problem with uncertain prognosis Data: Unique source(s) for external note(s) reviewed: 1 Risk: Moderate: Drug management Medical Decision Making [facility]: [facility]* Patient Instructions* Denice Alonzo APRN.CNP [...] while you are sick so you don't parts picker a different virus, or infect others. [...] per day. The below information is from prescribersletter.Adventi: Antibiotics Will rarely help an upper respiratory infections. Antibiotics lead to more resistant infections that are harder to treat. There is little to no benefit to taking antibiotics for most acute upper respiratory tract infections. [facility] History of Present illness Narrative* Denice Alonzo APRN.CNP - 01/14/2023 2:24 PM EDT This note was created using Pin-Digital. Subjective Jasmyn Reagan is a 17 year [...] Supportive care with fluids and rest - QOYDUBXXKYXITYS-HJHXBSRQXOVMLHF-TV 2 MG-30 MG-10 MG/5 ML ORAL SYRUP - GUAIFENESIN ER 600 MG TABLET, EXTENDED RELEASE 12 HR - OXYMETAZOLINE 0.05 % NASAL SPRAY Denice Alonzo APRN.[facility] Medical Decision Making: Problems: Moderate: New problem with uncertain prognosis Data: Unique source(s) for external note(s) reviewed: 1 Risk: Moderate: Drug management Medical Decision Making Level: 4 - Moderate [facility] Miscellaneous Notes* Telephone Encounter - Kishor [...] request came via pharmacy. [facility]23 NoteHNO ID: [id number] Author: Nilton Tony MD Service: ? Author [...] ordered or obtained, is reviewed by a cash register balancer before being considered final. Additional recommendations may [...] This included preparing to see the patient; vqdy-ou-wpta patient care; obtaining and/or reviewing separately obtained history; performing a medically appropriate examination; counseling and educating the patient/family/caregiver; and completing clinical documentation. As applicable, this also included ordering medications, tests, or procedures; independently interpreting results; communicating results to the patient/family/caregiver; and care coordination (not separately reported). This note was partially generated using Finario voice recognition system, and there may be some incorrect words, spellings, and punctuation that were not noted in checking the note before saving. Nilton Tony M.D.[facility]02-23-2023 History of Present illness Narrative* Nilton [...] ordered or obtained, is reviewed by a cash register balancer before being considered final. Additional recommendations may [...] This included preparing to see the patient; jcst-wj-bcva patient care; obtaining and/or reviewing separately obtained history; performing a medically appropriate examination; counseling and educatingthe patient/family/caregiver; and completing clinical documentation. As applicable, this also included ordering medications, tests, or procedures; independently interpreting results; communicating results to the patient/family/caregiver; and care coordination (not separately reported). This note was partially generated using Finario voice recognition system, and there may be some incorrect words, spellings, and punctuation that were not noted in checking the note before saving. Nilton Tony M.D. [facility]23 NoteHNO ID: [id number] Author: Rekha Hicks MD Service: ? Author [...] for the symptoms. History of eczema and public housing manager, now resolved. REVIEW OF SYSTEMS: Negative for [...] conditioning: Central air Basement: Dry basement Doris: Bgrl-il-xgbh carpeting Dust mite controls: Dust mite controls [...] may consider changing from (more content not included)...[facility] Instructions* Patient Instructions* Rekha Hicks MD - 10/07/2022 9:26 AM EST Increase cetirizine/zyrtec 10 mg to 2 tablets every morning and 2 tablets every evening Continue famotidine/pepcid 20 mg one tablet twice a day You may also take benadryl 25 to 50 mg every 6 hours as needed. You may also apply ice as needed. [facility] Nurse Note* Keshia Doll RN - 10/07/2022 9:11 AM EST Patient still having hives-no change. Taking zyrtec 10 mg twice daily and pepcid 20 mg twice daily. [facility] History of Present illness Narrative* Rekha [...] for the symptoms. History of eczema and public housing manager, now resolved. REVIEW OF SYSTEMS: Negative for [...] Smokeless tobacco: Never Tobacco comments: quit Vapes. Luic senior ENVIRONMENTAL HISTORY: Lives in a house Age of home: 1 years Heating: gas Woodburning fireplace in the home: yes but rarely used Air conditioning: Central air Basement: Dry basement Doris: Joxn-kn-jjyd carpeting Dust mite controls: Dust mite controls [...] arise. Rekha Hicks MD [facility] Instructions* Patient Instructions* Rekha Hicks MD - 09/02/2022 10:32 AM EST Take cetirizine (zyrtec) 10 mg tablets one tablet twice a day every day on a regular basis Take famotidine (pepcid) 20 mg twice a day every day on a regular basis You may also take benadryl 25 mg one to two tablets every 6 hours as needed. [facility] History of Present illness Narrative* Rekha [...] for the symptoms. History of eczema and public housing manager, now resolved. REVIEW OF SYSTEMS: SINUSITIS: The patient does not suffer from frequent sinopulmonary infections. ASTHMA: The patient has no history of asthma. ECZEMA: See CHICKALOON URTICARIA:See [place] GERD: Patient has been complaining of GERD [...] conditioning: Central air Basement: Dry basement Doris: Kllb-nu-szjz carpeting Dust mite controls: Dust mite controls [...] arise. Rekha Hicks MD [facility] Nurse Note* Sri Mayers RN - [...] sleepy. No antihistamine use. [facility] Miscellaneous Notes* Telephone Encounter - Maria Ines Chou LPN - 08/24/2022 11:25 AM EST Mom called in and pt has an appt with allergy on 09/02/2022. * Telephone Encounter - Seda Lind RN - 08/24/2022 10:49 AM EST Called and spoke with patient. She asks that we contact her mother to schedule this appointment. Attempted to call mother ([phone]). No answer. Message left for parent to [...] arrangements, orders, etc. can be created. Repeat generator rebuilder referral to Dr. Hicks, Eden Das. She was originally referred to Dr. Hicks [...] picture. This note was partially generated using Finario voice recognition system, and there may be some incorrect words, spellings, and punctuation that were not noted in checking the note before saving. Nilton Tony MD [facility] History of Present illness Narrative* Nilton [...] ordered or obtained, is reviewed by a cash register balancer before being considered final. Additional recommendations may [...] I recommend she be evaluated by the generator rebuilder first. We discussed one of the most important goals from the generator rebuilder referral is to hopefullydetermine that the Zoloft [...] like her to be evaluated by the generator rebuilder (regarding problem #1 above) first, so as notto create a more confusing picture. I spent a total of 40-54 minutes on the date of service. This included preparing to see the patient; eoki-us-nuyc patient care; obtaining and/or reviewing separately obtained history; performing a medically appropriate examination; counseling and educatingthe patient/family/caregiver; and completing clinical documentation. As applicable, this also included ordering medications, tests, or procedures; independently interpreting results; communicating results to the patient/family/caregiver; and care coordination (not separately reported). This note was partially generated using Finario voice recognition system, and there may be some incorrect words, spellings, and punctuation that were not noted in checking the note before saving. Nilton Tony M.D. documented [facility] Miscellaneous Notes* Telephone Encounter - Cristina [...] treated. This note was partially generated using Finario voice recognition system, and there may be [...] chart. This note was partially generated using Oxatis recognition system, and there may be some incorrect words, spellings, and punctuation that were not noted in checking the note before saving. Nilton Tony MD [facility] History of Present illness Narrative* Nilton [...] ordered or obtained, is reviewed by a cash register balancer before being considered final. Additional recommendations may [...] This included preparing to see the patient; ockg-ig-uhrg patient care; obtaining and/or reviewing separately obtained history; performing a medically appropriate examination; counseling and educatingthe patient/family/caregiver; and completing clinical documentation. As applicable, this also included ordering medications, tests, or procedures; independently interpreting results; communicating results to the patient/family/caregiver; and care coordination (not separately reported). This note was partially generated using Finario voice recognition system, and there may be some incorrect words, spellings, and punctuation that were not noted in checking the note before saving. Nilton Tony M.D. [facility] Miscellaneous Notes* Telephone Encounter - Maicol [...] time. Seda Lind RN documented in [facility] encounter[facility] Miscellaneous Notes* Telephone Encounter - Kishor Child RN - 04/17/2022 2:29 PM EDT Connected with [facility] for scheduling. Kishor Child RN * Telephone [...] Discussed in detail. Antihistamine suchas Claritin recommended. 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 This note was partially generated using Finario voice recognition system, and there may be some incorrect words, spellings, and punctuation that were not noted in checking the note before saving. Nilton Tony MD documented in [facility] encounter[facility] Instructions* Patient Instructions* Nilton Tony MD [...] drinks Go! Be healthy, inside and out! [email or web address] Adolescent to Adult Transition Program [facility] cares about helping you and each of our adolescents and young adults make a smoothtransition to adult care. If your current doctor is a field ironworker, we will work with you to decide [...] your current doctor is in family medicine, [facility] will prepare you and your family [...] details. If joining our practice from outside [facility], we will help you request your medical record from past doctor(s) before your first visit. We will make every effort to work with your past providers to ensure a smooth transition and experience. We are always here for you. If you have any questions or concerns, please contact your primary careteam or e-mail [facility] Transition is the federally funded national resource center on health care transition (HCT). Its aim is to improve transition from pediatric to adult health care through the use of evidence-driven strategies for health transitional care nurse, youth, young adults, and their families. www.gottransition.org [email or web address]/?zmw-gwwqcj-cjztuwi documented in this encounter[facility]09-[facility] History of Present illness Narrative* Nilton [...] unsatisfactory Screening tools reviewed and discussed with patient/fetxkk-[id number] and Social Determinants of Health.Please see Patient [...] and safety. - Dental care discussed. - [place] handout given (See Patient Instructions). - Patient was counseled [id number] by myself (the billing provider) for the [...] ADDITIONAL PLAN 1. Patient already followed by [facility]. 2. Patient has a history of anxiety. Currently on Zoloft 75 mg daily. She feels this is not providing adequate relief. We will increase to 100 mg daily with follow-up in 1 month. 3. History and photographs consistent with pressure urticaria. Discussed in detail. Antihistamine such as Claritin recommended. 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 4. Patient states she has difficulty losing weight as she eats very little. In addition to the usual screening labs for elevated BMI, thyroid studies also sent. This note was partially generated using Finario voice recognition system, and there may be some incorrect words, spellings, and punctuation that were not noted in checking the note before saving. Nilton Tony M.D. documented in this encounterU[facility]09[facility] History of Past illness Narrative* Problem Noted Date Resolved Date Viral warts 04/26/2018 12/22/2018 Overweight 06/12/2016 12/22/2018 Migraine headache 06/25/2014 12/22/2018 documented as of this encounter (statuses as of 04/17/2022) [facility] of Past illness Narrative* Problem Noted Date Resolved Date Viral warts 04/26/2018 12/22/2018 Overweight 06/12/2016 12/22/2018 Migraine headache 06/25/2014 12/22/2018 documented as of this encounter (statuses as of 04/17/2022) [place] [address]-2018 History of Past illness Narrative* Problem Noted Date Resolved Date Viral warts 04/26/2018 12/22/2018 Overweight 06/12/2016 12/22/2018 Migraine headache 06/25/2014 12/22/2018 documented as of this encounter (statuses as of 05/11/2022) [facility] Narrative* Problem Noted Date Resolved Date Viral warts 04/26/2018 12/22/2018 Overweight 06/12/2016 12/22/2018 Migraine headache 06/25/2014 12/22/2018 documented as of this encounter (statuses as of 05/19/2022) [facility] Narrative* Problem Noted Date Resolved Date Viral warts 04/26/2018 12/22/2018 Overweight 06/12/2016 12/22/2018 Migraine headache 06/25/2014 12/22/2018 documented as of this encounter (statuses as of 05/21/2022) [address]11-2018 History of Past illness Narrative* Problem Noted Date Resolved Date Viral warts 04/26/2018 12/22/2018 Overweight 06/12/2016 12/22/2018 Migraine headache 06/25/2014 12/22/2018 documented as of this encounter (statuses as of 06/05/2022) [place] [address]2018 History of Past illness Narrative* Problem Noted Date Resolved Date Viral warts 04/26/2018 12/22/2018 Overweight 06/12/2016 12/22/2018 Migraine headache 06/25/2014 12/22/2018 documented as of this encounter (statuses as of 08/22/2022) [address]11[address]2018 History of Past illness Narrative* Problem Noted Date Resolved Date Viral warts 04/26/2018 12/22/2018 Overweight 06/12/2016 12/22/2018 Migraine headache 06/25/2014 12/22/2018 documented as of this encounter (statuses as of 08/24/2022) [facility] Narrative* Problem Noted Date Resolved Date Viral warts 04/26/2018 12/22/2018 Overweight 06/12/2016 12/22/2018 Migraine headache 06/25/2014 12/22/2018 documented as of this encounter (statuses as of 09/04/2022) [facility] Narrative* Problem Noted Date Resolved Date Viral warts 04/26/2018 12/22/2018 Overweight 06/12/2016 12/22/2018 Migraine headache 06/25/2014 12/22/2018 documented as of this encounter (statuses as of 10/08/2022) [facility] Narrative* Problem Noted Date Resolved Date Viral warts 04/26/2018 12/22/2018 Overweight 06/12/2016 12/22/2018 Migraine headache 06/25/2014 12/22/2018 documented as of this encounter (statuses as of 10/09/2022) [facility] Narrative* Problem Noted Date Resolved Date Viral warts 04/26/2018 12/22/2018 Overweight 06/12/2016 12/22/2018 Migraine headache 06/25/2014 12/22/2018 documented as of this encounter (statuses as of 12/04/2022) [facility] Narrative* Problem Noted Date Resolved Date Viral warts 04/26/2018 12/22/2018 Overweight 06/12/2016 12/22/2018 Migraine headache 06/25/2014 12/22/2018 documented as of this encounter (statuses as of 01/14/2023) [facility] Narrative* Problem Noted Date Diagnosed Date Resolved Date Viral warts 04/26/2018 12/22/2018 Overweight 06/12/2016 12/22/2018 Migraine headache 06/25/2014 12/22/2018 documented as of this encounter (statuses as of 06/08/2023) [facility] Narrative* Problem Noted Date Diagnosed Date Resolved Date Viral warts 04/26/2018 12/22/2018 Overweight 06/12/2016 12/22/2018 Migraine headache 06/25/2014 12/22/2018 documented as of this encounter (statuses as of 09/30/2023) [facility] note* Diagnosis Contusion of right hand, initial encounter- Primary documented in this encounter [facility] Work Phone: Evaluation note* Diagnosis Routine physical [...] single bacterial disease documented in this encounter [facility] note* Diagnosis Anxiety- Primary Anxiety state, unspecified Abnormal laboratory test result Other abnormal clinical finding Diarrhea, unspecified type documented in this encounter [facility] note* Diagnosis Chronic urticaria- Primary Other specified urticaria documented in this encounter [facility] note* Diagnosis Chronic urticaria- Primary Other specified urticaria documented in this encounter [facility] note* Diagnosis Chronic urticaria- Primary Other specified urticaria documented in this encounter [facility] note* Diagnosis Anxiety- Primary Anxiety state, unspecified BMI (body mass index), pediatric, greater than or equal to 95% for age Body Mass Index, pediatric, greater than or equal to 95th percentile for age documented in this encounter [facility] note* Diagnosis Viral URI with cough- Primary Acute upper respiratory infections of unspecified site documented in this encounter [facility] note* Diagnosis Sprain of right thumb, unspecified site of digit, initial encounter- Primary [facility] Diagnosis Sore throat- Primary Acute pharyngitis URI with cough and congestion documented in this encounter [facility] note* Diagnosis Cystitis- Primary Unspecified cystitis documented in this encounter [facility] Work Phone: Evaluation note* Diagnosis Pharyngitis, unspecified etiology- Primary Viral upper respiratory tract infection with cough Acute upper respiratory infections of unspecified site documented in this encounter [facility] Discharge instructions* Attachments The following attachments cannot be sent through Care Everywhere. * Hand Pain: Pediatric (Guamanian) [facility] Work Phone: Discharge Instructions * Instructions* Mikey Mcdaniels, - 04/19/2019 Rest. Ice 15 minute every 4-6 hours. Use sling as needed. * Attachments The following attachments cannot be sent through Care Everywhere. * Bruises: Teen (Guamanian) documented in this encounter Assessments Diagnosis Contusion [...] Referral Specialty Diagnoses / Procedures Referred By Contac t Referred To Contact Allergy Diagnoses Pressure urticaria Procedures CONSULT TO ALLERGY/IMMUNOLOGY OFFICE/OUTPATIENT [facility] 60-74 MINUTES Nilton Tony MD [address] [place] [address] Referral ID Status Reason Start Date Expiration Date Visits Requested Visits Authorized [id number] Authorized PCP Requested Referral 04/17/2022 04/17/2023 1 1 Additional Source Comments Reason for Visit (unrecogniz ed section and content) Reason Comments Hand Injury Reason Comments Referral Request Reason Comments Well Child 16 yr [facility]; discuss p ossible allergic reactions. Pt has [...] Evaluation Specialty Diagnoses / Procedures Referred By Contblu t Referred To Contact Allergy Diagnoses Pressure urticaria Procedures CONSULT TO ALLERGY/IMMUNOLOGY OFFICE/OUTPATIENT NEW HIGH MDM 60-74 MINUTES Nilton Tony MD [address] [place] [address] Referral ID Status Reason Start Date Expiration Date V isits Requested Visits Authorized [id number] Closed PCP Requested Referral 04/17/2022 04/17/2023 1 [...] for a UTI but had to leave [place] for emergency purposes and has not been able to get her medication filled. Pt also has yellow and green discharge from her vagina. Flank Pain Pt is c/o right flan k pain radiating to her back. Reason Comments Sore Throat Ear Pain Ears are itching chidi al congestion, sore throat symptoms started ear ach mostly right 09/28/23, No Otc medication INFORMATION SOURCE (unrecogn ized section and content) DATE CREATED AUTHOR AUTHOR'S ORGANIZ ATION 03/21/2021 [employer] DATE CREATED AUTHOR AUTHOR'S ORGANIZ ATION 09/28/2022 [facility] DATE CREATED AUTHOR AUTHOR'S ORGANIZ ATION 10/03/2022 [employer] [facility] DATE CREATED AUTHOR AUTHOR'S ORGANIZ ATION 02/01/2023 [facility] DATE CREATED AUTHOR AUTHOR'S ORGANIZ ATION 07/31/2023 [facility] DATE CREATED AUTHOR AUTHOR'S ORGANIZ ATION 10/02/2023 [facility] Source Comments (unrecognize d section and content) In the event this informatio n is protected by the Federal Confidentiality of Alcohol and Drug Abuse Patient Records regulations: The Federal rules restrict any use of the information to criminally investigate or prosecute any alcohol or drug abuse patient.[facility] the event this information is protected by the Federal Confidentiality of Alcohol and Drug Abuse Patient Records regulations: The Federal rules restrict any use of the information to criminally investigate or prosecute any alcohol or drug abuse patient.[facility]In the event this information is protected by the Federal Confidentiality of Alcohol and Drug Abuse Patient Records regulations: The Federal rules restrict any use of the information to criminally investigate or prosecute any alcohol or drug abuse patient.[facility] the event this information is protected by the Federal Confidentiality of Alcohol and Drug Abuse Patient Records regulations: The Federal rules restrict any use of the information to criminally investigate or prosecute any alcohol or drug abuse patient.[facility] the event this information is protected by the Federal Confidentiality of Alcohol and Drug Abuse Patient Records regulations: The Federal rules restrict any use of the information to criminally investigate or prosecute any alcohol or drug abuse patient.[facility]In the event this information is protected by the Federal Confidentiality of Alcohol and Drug Abuse Patient Records regulations: The Federal rules restrict any use of the information to criminally investigate or prosecute any alcohol or drug abuse patient.[facility] HospitalIn the event this information is protected by the Federal Confidentiality of Alcohol and Drug Abuse Patient Records regulations: The Federal rules restrict any use of the information to criminally investigate or prosecute any alcohol or drug abuse patient.[facility] the event this information is protected by the Federal Confidentiality of Alcohol and Drug Abuse Patient Records regulations: The Federal rules restrict any use of the information to criminally investigate or prosecute any alcohol or drug abuse patient.[facility] the event this information is protected by the Federal Confidentiality of Alcohol and Drug Abuse Patient Records regulations: The Federal rules restrict any use of the information to criminally investigate or prosecute any alcohol or drug abuse patient.[facility] the event this information is protected by the Federal Confidentiality of Alcohol and Drug Abuse Patient Records regulations: The Federal rules restrict any use of the information to criminally investigate or prosecute any alcohol or drug abuse patient.[facility] HospitalIn the event this information is protected by the Federal Confidentiality of Alcohol and Drug Abuse Patient Records regulations: The Federal rules restrict any use of the information to criminally investigate or prosecute any alcohol or drug abuse patient.[facility] HospitalIn the event this information is protected by the Federal Confidentiality of Alcohol and Drug Abuse Patient Records regulations: The Federal rules restrict any use of the information to criminally investigate or prosecute any alcohol or drug abuse patient.[facility] HospitalIn the event this information is protected by the Federal Confidentiality of Alcohol and Drug Abuse Patient Records regulations: The Federal rules restrict any use of the information to criminally investigate or prosecute any alcohol or drug abuse patient.[facility] Hospital[facility] the event this information is protected by the Federal Confidentiality of Alcohol and Drug Abuse Patient Records regulations: The Federal rules restrict any use of the information to criminally investigate or prosecute any alcohol or drug abuse patient.[facility]In the event this information is protected by the Federal Confidentiality of Alcohol and Drug Abuse Patient Records regulations: The Federal rules restrict any use of the information to criminally investigate or prosecute any alcohol or drug abuse patient.[facility] Care Teams (unrecognized sec tion and content) Airbrush Artist Technical Relationship Specialty Start Date End Date Nilton Tony MD [address] [place] [address] PCP - General 03 Airbrush Artist Technical Relationship Specialty [place] [address] [place] [address], [place] [address] PCP - General 03 Airbrush Artist Technical Relationship Specialty Start Date End Date Nilton Tony MD [address] [place] [address], [place] [address] PCP - General 03 Airbrush Artist Technical Relationship Specialty Start Date End Date Nilton Tony MD [address] [place] [address], [place] [address] PCP - General 03 Airbrush Artist Technical Relationship Specialty Start Date End Date Nilton Tony MD [address] [place] [address], [place] [address] PCP - General 03 Airbrush Artist Technical Relationship Specialty Start Date End Date Nilton Tony MD [address] [place] [address], [place] [address] PCP - General 03 Airbrush Artist Technical Relationship Specialty Start Date End Date Nilton Tony MD [address] [place] [address], [place] [address] PCP - General 03 Airbrush Artist Technical Relationship Specialty Start Date End Date Nilton Tony MD [address] [place] [address], [place] [address] PCP - General 03 Airbrush Artist Technical Relationship Specialty Start Date End Date Nilton Tony MD [address] [place] [address], [place] [address] PCP - General 03 Airbrush Artist Technical Relationship Specialty Start Date End Date Nilton Tony MD [address] [place] [address], [place] [id number] PCP - General 03 Airbrush Artist Technical Relationship Specialty Start Date End Date Nilton Tony MD [address] [place], [place] [id number] PCP - General 03 Airbrush Artist Technical Relationship Specialty Start Date End Date Nolan Tonyothy [address] [place], [place] [id number] PCP - General 04/10/16 Airbrush Artist Technical Relationship Specialty Start Date End Date Nolan Tonyothy [address] [place] [address] [phone] PCP - General 04/10/16 Airbrush Artist Technical Relationship Specialty Start Date End Date Becky Addison, SHEA.VRT MECHANIC [address] [place] [address] [phone] PCP - General Family Medicine 05/18/23 Airbrush Artist Technical Relationship Specialty Start Date End Date Generic Provider, No Assigned [facility] [address] [place] [address] PCP - General Family Medicine 07/27/23 Airbrush Artist Technical Relationship Specialty Start Date End Date Becky Addison, PLASTER HELPER.VRT MECHANIC [address] [place] [address] [phone] PCP - General Family Medicine 05/18/23 FOR RECORDS PERTAINING TO PATIENTS WHO ARE [...] BE BASED ON THE PRIMARY CLINICAL RECORDS. [employer] provides no warranty or guarantee of the accuracy or completeness of information in this document.
[2023-10-05 07:57] VITALS: BP 129/82; PULSE 103; RESP 16; TEMP 36.3; O2SAT 100; BMI 32.5
[2023-10-05] MEDS: Lactated Ringers 1,000 ML 15 ML IV (08:00)
[2023-10-05 08:22] LABS: Internal QC Validated? YES +Cl - CLEAR BKGD; Pregnancy, Urine Negative Negative; Record Kit Lot#,Urine Preg 718086
[2023-10-05 08:49] LABS: Hematocrit 41.8 % (37-47); Hemoglobin 14.2 g/dL (12.0-15.0); Mean Corpuscular Hgb 30.5 pg (27.0-32.0); Mean Corpuscular Volume 89.9 fL (81-99); Mean Platelet Vol. 9.1 fl (6.2-12.0); Platelet Count 306 K/mm3 (150-450); RBC Distribution Width CV 12.5 % (11.6-14.6); RBC Distribution Width SD 41.3 fl (35.1-43.9); Red Blood Count 4.65 M/mm3 (4.2-5.4); White Blood Count 6.8 K/mm3 (4.4-11.0)
--- NOTE | 2023-10-05 10:00 | HP.PCM_ITS ---
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[employer] Meats Required: No Is patient in pain?: No Allergies Latex, Natural Rubber Allergy (Mild, Verified 08/19/23 08:40) Rash Medications loratadine 10 mg tablet (Allergy Relief (loratadine)) 20 mg PO BID 10/08/22 [History Confirmed 08/19/23] omeprazole magnesium 20 mg capsule,delayed release (Acid Area Operations Director (omeprazole)) 20 mg PO DAILY 10/08/22 [History Confirmed 08/19/23] ciprofloxacin HCl 500 mg tablet (Cipro) 500 mg PO BID 7 days #14 tabs 08/19/23 [Rx Confirmed 08/19/23] Post menopausal: No Patient : No : No PFSH PFSH Medical History Anxiety Family History Grandfather Lupus CVA (cerebral vascular accident)Other Family history of narcolepsy Social History Smoking Status: Never smoker alcohol intake: former details: occsasionally substance use type: former substance user and marijuana frequency: 3-4 times per week additional social history: 11th grade [employer] HPI remove IUD Details: NAHEED REAGAN is a 17 year old who presents for iud removal. she said the iud is sideways and it was attempted for removal previously without succcess she hasn't had a menses in 3 years and she recently had a uti, negative gcc, rtreated with keflex. she denies any abnromal bleeding or discharge. she denies pelvic pain or pressure. she is wanting to try something different for control ROS Const Constitutional: Denies fatigue, fever(s), headache(s), increased appetite, poor appetite, weight gain or weight loss Cardio Card: Denies chest pain Resp Resp: Denies cough or dyspnea GI GI: Reports as per HPI; Denies abdominal pain, constipation, nausea or vomiting : Reports as per HPI, urinary hesitancy and urinary urgency; Denies difficulty voiding, dysuria, nipple discharge, urinary frequency, urinary incontinence, vaginal discharge, vaginal dryness, vaginal odor or vaginal pruritus Skin Skin/Breast: Denies change in hair, breast mass, breast pain, breast skin changes or nipple discharge Exam Const General: cooperative, healthy appearing, comfortable, no acute distress and well developed Nutritional Appearance: average body habitus Orientation: alert HENMT Head: normal to inspection and normocephalic Neck Neck: normal visual inspection and trachea midline Thyroid: thyroid normal Resp Effort & Inspection: normal respiratory effort GI Inspection: normal to inspection and non-distended Palpation: soft and no hepatosplenomegaly General: bladder normal to palpation External Female Exam: normal external appearance and normal appearance of the urethra Urethra: normal appearance of the urethra, normal palpation and no discharge Speculum Exam - Vagina: normal appearance of the vagina and normal vaginal discharge Speculum Exam - Cervix: normal appearance of the cervix and nontender Bimanual Exam- Vagina & Uterus: normal bimanual exam, uterine size normal, bladder normal to palpation, uterine shape normal, No tender, uterine mobility normal, consistency normal, normal palpation and non-tender Bimanual Exam- Adnexa, other: normal adnexae, adnexae mobile, no masses and normal Pelvic Support: normal Skin General: no rashes or lesions noted Office Procedures IUD Removal IUD Removal Details: Sign out documentation: Completed Procedure: Speculum placed in vagina, IUD string not visualized and after multiple attempts, unable to be located and removed. patient will be scheduled for hysteroscopic removal. Results POC Urinalysis Dip (Clinic) Office Urine Color Yellow Last Edit by Sri Henderson on 08/19/23 09:07 Office Urine Clarity Clear Last Edit by Sri Henderson on 08/19/23 09:07 Office Urine Glucose Negative Last Edit by Sri Henderson on 08/19/23 09:07 Office Urine Ketones Moderate (40+) Last Edit by Sri Henderson on 08/19/23 09:07 Off Ur Spec [place] 1.015 Last Edit by Sri Henderson on 08/19/23 09:07 Office Urine pH 6 Last Edit by Sri Henderson on 08/19/23 09:07 Office Urine Bilirubin Negative Last Edit by Sri Henderson on 08/19/23 09:07 Office Urine Urobilinogen Negative Last Edit by Sri Henderson on 08/19/23 09:0 7 Office Urine Blood Trace Last Edit by Sri Henderson on 08/19/23 09:07 Office Urine Blood Hemolyzed Negative Last Edit by Sri Henderson on 08/19/23 09:07 Office Urine Protein Trace Last Edit by Sri Henderson on 08/19/23 09:07 Office Urine Nitrate Positive Last Edit by Sri Henderson on 08/19/23 09:07 Off Ur Leukocytes Positive Last Edit by Sri Henderson on 08/19/23 09:07 Moderate [place] Coding Level of Care Code Off vis,est,level 4 Diagnoses Malpositioned IUD T83.32XA Recurrent UTI N39.0 Assessment and Plan Assessment and Plan (1) Malpositioned IUD: Status: Acute Comment: hysteroscopic IUD removal recommended, consider IUD reinsertion if patient desired (2) Recurrent UTI: Status: Acute Comment: cipro and culture ordered Orders: Orders IUD Removal Today Z30.432 - Encounter for removal of intrauterine contraceptive device POC Urinalysis Dip (Clinic) Today R30.0 - Dysuria Culture, Urine Today R30.0 - Dysuria Pelvic (Non ) Today R10.2 - Pelvic and perineal pain Transvaginal Non- Today R10.2 - Pelvic and perineal pain Medications: New ciprofloxacin HCl (Cipro) 500 mg PO BID 14 tabs 0RF 7 days Plan ultrasound ordered, patient counseled regarding control options plan for either IUD reinsertion or ortho evra patch, US ordered to reevaluate location. IUD unable to be removed, schedule for surgical removal. After discussing the patient's diagnosis and treatment plan options, patient wishes to proceed with surgical management. I have discussed with the patient the risks, benefits, and alternatives of the procedure which include but are not limited to risks of anesthesia, bleeding, infection, possible damage to bowel, bladder, or surrounding vasculature which could lead to additional surgery to evaluate any complications. Patient agrees to procedure and wishes to proceed. ACOG/uptodate references given for additional information regarding procedure. UPDATE- I have seen the patient and performed any clinically relevant updates to the history and physical exam. Dedra Peña MD
[2023-10-05] MEDS: Levonorgestrel IUD (Liletta) 1 EACH INTRA-UTER (10:33)
[2023-10-05 10:45] VITALS: BP 109/52; BP 129/82; PULSE 100; RESP 16; TEMP 36.4; O2SAT 95
--- NOTE | 2023-10-05 10:48 | PCM.OPRPT ---
Problems Associated Problem List Diagnoses (1) History of hysteroscopy: (2) Encounter for IUD removal: (3) Malpositioned IUD: Report of Operation Date of Procedure: 10/05/23 Pre-Operative Diagnosis: see problem list Post-Operative Diagnosis: same Surgery/Procedure Performed:: dilation and hysteroscopic removal iud and iud insertion Description of Surgical Findings:: strings folded up into cavity Surgeon: Dedra Peña paper baling machine operator: None Type of Anesthesia: Local MAC Special Medications: none Specimen's removed: iud Drains: none Estimated Blood Loss (mL): 50 Fluids Replaced: crystalloid Description of Procedure: Patient was prepped and draped in a normal sterile fashion under MAC anesthesia. A weighted speculum was placed in the vagina and the anterior lip of the cervix was grasped with a single-tooth tenaculum. A paracervical block was placed with 1% lidocaine. Cervix was progressively dilated to allow passage of a 5 mm hysteroscope. The lining was fully visualized and noted to have iud present in normal position with strings folded up over them . Uterine sounded to 8 cm. strings grasped with hysteroscopic forceps and iud removed without difficulty. new liletta iud placed without complication and strings trimmed 3-4 cm. All instruments were removed from the vagina and excellent hemostasis was noted. Patient was awoken and taken to recovery in stable condition. Grafts/Implants Used: none Procedure Start Time: 10:20 Procedure Stop Time: 10:35 Complications none Admit VTE Documentation VTE Present on Admission: No VTE Mechan Device Prophylaxis: SCD's Multi Select Codes Urinary/Genital Urinary/Genital CPT Codes: 11386 Insert IUD and 98497 Hysteroscopy,EMC, Polypectomy (IUD removal ALERT billing)
--- NOTE | 2023-10-05 10:49 | PCM.OPRPT ---
Problems Associated Problem List Diagnoses (1) Malpositioned IUD: (2) Recurrent UTI: (3) Encounter for IUD removal: (4) History of hysteroscopy:
[2023-10-05 10:50] VITALS: BP 111/60; BP 129/82; PULSE 89; RESP 16; O2SAT 94
--- NOTE | 2023-10-05 10:50 | DCINST_ITS ---
Discharge Instructions Diet Discharge Diet: No restrictions Activity Discharge Activity: Return to Normal Activity, May Shower and May Take a Tub Bath (after 1 week) May resume sexual activity in: 1-2 weeks Weight Bearing Status: Weight bearing as tolerated Lifting Restrictions: none Dressing / Incision Call your doctor if you observe: Fever of 101 or Higher, Using more than 1 pad per hour, Shortness of breath and Uncontrolled pain Follow Up Care Please Follow Up With: Dedra Peña MD When: Call [phone] to schedule appointment. Test Results: Test results from this visit will be discussed in further detail at your follow- up appointment, if applicable. Discharge Plan Admission Attending Provider: Dedra Peña Primary Care Provider: Care PhysicianAzeb Primary Discharge Orders/Prescriptions Prescriptions: No Action sertraline 50 mg tablet 50 mg PO DAILY Patient Comments: TAKE 1 TABLET BY MOUTH EVERY DAY Referrals / Follow Up: Care Physician,Azeb Primary [Primary Care Provider] - Disposition Disposition (needs filled in before D/C Order can be placed): Home, Self Care
[2023-10-05 10:55] VITALS: BP 112/61; BP 129/82; PULSE 84; RESP 16; O2SAT 93
[2023-10-05 11:00] VITALS: BP 115/66; BP 129/82; PULSE 92; RESP 18; TEMP 36.9; O2SAT 96
[2023-10-05] MEDS: DiphenhydrAMINE 50 MG/ML Syringe IV (11:31)
[2023-10-05 12:11] VITALS: BP 116/60; BP 129/82; PULSE 78; RESP 16; TEMP 36; O2SAT 100
== END 2023-10-05 12:13 | disposition home or self-care (01) ==
LOC: SDC 07:45 → AC 07:49
PROVIDERS: Referring Provider Obstetrics & Gynecology; Visit Provider Obstetrics & Gynecology
PROC: 0UJD8ZZ Inspection of Uterus and Cervix, Via Natural or Artificial Opening Endoscopic (ICD-10-PCS; CPT 58555; principal; 2023-10-05 08:40)
DX: T83.32XA Displacement of intrauterine contraceptive device, initial encounter (principal); N39.0 Urinary tract infection, site not specified
CPT/HCPCS: 58562; 58300; 00952; 81025; 85027; 86850; 86900; 86901; J7120; J2405

== ENCOUNTER 2023-11-10 04:30 | Emergency (ER) | payer BC, SELFPAY ==
[2023-11-10 04:31] VITALS: BP 134/88; PULSE 89; RESP 18; TEMP 36.1; O2SAT 99; BMI 33.1
[2023-11-10 04:33] VITALS: BP 134/88; PULSE 89; RESP 16; TEMP 36.6; O2SAT 99
[2023-11-10 04:46] LABS: Bacteria 0 SEEN /hpf (None Seen); Mucous, Urine 0 SEEN /hpf (<or=2+); Red Blood Cells-Urine 0 SEEN /hpf (0-5)
[2023-11-10 04:47] LABS: Color, Urine Yellow (Yellow); Glucose, Dipstick Normal (Normal); Ketone-Dipstick Negative (Negative); Leukocyte Esterase-Dipstick 25 /ul (Negative); Nitrite-Dipstick Negative (Negative); Occult Blood-Urine 10 /ul (Negative); Protein-Dipstick 15 mg/dl (Negative); Specific Gravity, Urine 1.025 (1.002-1.030); Urine Bilirubin Dipstick Negative (Negative); Urine Clarity Clear (Clear); Urine Urobilinogen Normal (Normal)
--- NOTE | 2023-11-10 04:54 | ED.VIS.FEGU ---
HPI HPI - Female History of Present Illness Chief Complaint: Complaint Informant: patient Narrative Narrative: Patient states she had a IUD that was out of place and this was removed and replaced with a new IUD about a month ago. Since then she has been having burning discomfort in her vaginal area. 3 days ago she developed a discharge. After the procedure a month ago she had intercourse and is concerned she may have an STD, but she came here at 430 this morning because she was taking a bath a couple hours ago and she states she lost continence of her bladder for some reason and urinated in the tub. She denies any abdominal pain, back pain, saddle anesthesia, numbness or tingling in her lower extremities, or weakness in her lower extremities. She has had no problems with bowel movements. At this time she has the same burning that she has had in her vaginal area for the last month and no other current symptoms. [facility] Medical History Anxiety Depression Gastric reflux Migraine headache Smoker Wears glasses Home Medications levonorgestrel 21 mcg/24 hours (8 yrs) 52 mg intrauterine device (Mirena) 1 device intrauterine ONCE 10/20/23 [History Last Taken Unknown] metronidazole 500 mg tablet 500 mg PO BID #14 tabs 11/10/23 [Rx Last Taken Unknown] Allergy/AdvReac Type Severity Reaction Status Date / Time Latex, Natural Rubber Allergy Mild Rash Verified 11/10/23 04:30 Family History Grandfather Lupus CVA (cerebral vascular accident) Other Family history of narcolepsy Surgical History History of hysteroscopy Social History current occupation: [employer] Smoking Status: Current some day smoker tobacco type: e-cigarettes alcohol intake: former details: occsasionally substance use type: former substance user and marijuana frequency: 3-4 times per week ROS ROS ED Constitutional Constitutional ED: Denies chills or fever(s) Eyes Eyes: Denies change in vision or diplopia ENT ENT ED: Denies rhinorrhea or sore throat Cardiovascular Cardiovascular: Denies chest pain or palpitations Respiratory/Chest Respiratory/Chest: Denies cough or dyspnea Gastrointestinal Gastrointestinal: Denies abdominal pain, diarrhea, nausea or vomiting Genitourinary Genitourinary ED: Reports as per HPI, genital pain, urinary frequency and urinary incontinence; Denies dysuria, flank pain or hematuria Musculoskeletal Musculoskeletal: Denies back pain or neck pain Integumentary Denies abscess or rash Neurologic Neurologic: Denies headache(s), paresthesias or weakness Psychiatric Psychiatric: Denies suicidal ideation or suicidal thoughts EXAM Physical Exam Const Vital Signs: 11/10/23 04:31 11/10/23 04:33 Temperature 97 F L 97.8 F Temperature Source Temporal Temporal Pulse Rate 89 89 Respiratory Rate 18 16 Blood Pressure 134/88 H 134/88 H Blood Pressure Mean 103 103 Pulse Ox 99 99 Positive well nourished and well developed General Appearance ED: well developed and NAD HEENT Reports moist mucous membranes normocephalic and atraumatic Eyes PERRL and EOMs intact bilaterally Neck full ROM and supple Resp normal respiratory effort and clear to auscultation bilaterally Cardio regular rate, regular rhythm and no murmurs GI non-tender and non-distended Auscultation: normoactive bowel sounds Palpation: soft Narrative: Offered pelvic exam, patient declines Back/Spine no CVA tenderness General Back: other FROM Lumbar Spine / Lower Back: Negative for lumbar spinal tenderness Extremity normal to inspection General Extremety ED: Negative for edema, pulses abnormal or tenderness General Extremity: Negative for edema or pulses abnormal Neuro oriented x3, CN's II-XII intact bilaterally, no sensory deficits noted, deep tendon reflexes 2+ bilaterally and gait normal Sensorium / Orientation: awake and alert Motor Exam: strength 5/5 throughout Skin no rashes or lesions noted and no wounds MDM MDM MDM Narrative Medical decision making narrative: I sent a on the patient it is negative, and her urinalysis is negative for infection on my interpretation. 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 I reassured her with regards to an episode of urinary incontinence, she does not have symptoms of acute spinal cord compression, nor does she have symptoms of uterine perforation/rupture due to IUD. The IUD may not be involved with this at all, and unknown how it could be causing burning in her perineum/vaginal area for the last month. I recommend close follow-up with her circulation director, she does not want a pelvic exam here as we discussed the fact that bacterial vaginosis is also in the differential. I offered empiric treatment for this with Louann and she is willing to try that before she follows up. Lab Data Attestation: I reviewed the patient's lab results. Labs: Laboratory Results - last 24 hr 11/10/23 04:40 Urine Color Yellow Urine Clarity Clear Urine pH 6.0 Ur Specific [place] 1.025 Urine Protein 15 H Urine Glucose (UA) Normal Urine Ketones Negative Urine Occult Blood 10 H Urine Nitrite Negative Urine Bilirubin Negative Urine Urobilinogen Normal Ur Leukocyte Esterase 25 H Urine RBC 0 SEEN Urine WBC 0-5 SEEN Ur Squamous Epith Cells 0-5 SEEN Urine Bacteria 0 SEEN Urine Mucus 0 SEEN Urine Test Negative Discharge Plan Triage Chief Complaint: Complaint ED Provider: Eladio Johnson Dx/Rx/DC Orders Clinical Impression: Urinary incontinence, Vaginal discharge, Vaginal pain Instructions: ED Bacterial Vaginosis (BV) Prescriptions: New metronidazole [metronidazole] 500 mg tablet 500 mg PO BID Qty: 14 0RF No Action Mirena 21 mcg/24 hours (8 yrs) 52 mg intrauterine device 1 device intrauterine ONCE Rx Instructions: as a single dose Primary Care Provider: Care Physician,No Primary Referrals: Dedra Peña MD [Med Staff - Active Staff] - (Call for appointment) Disposition Disposition: Home, Self Care
[2023-11-10 05:07] LABS: Internal QC Validated? YES +Cl - CLEAR BKGD; Pregnancy, Urine Negative Negative
[2023-11-10 05:33] VITALS: BP 131/85; PULSE 85; RESP 18; TEMP 36.6; O2SAT 99
[2023-11-10 05:47] LABS: Squamous Epithelial Cells - UA 0-5 SEEN /hpf (5-10); White Blood Cells 0-5 SEEN /hpf (0-5)
[2023-11-10 06:10] VITALS: BP 130/81; PULSE 71; RESP 15; TEMP 36.6; O2SAT 99
== END 2023-11-10 06:12 | disposition home or self-care (01) ==
PROVIDERS: Emergency Provider Emergency Medicine; Visit Provider Emergency Medicine
DX: N89.8 Other specified noninflammatory disorders of vagina (principal); R32 Unspecified urinary incontinence; F17.200 Nicotine dependence, unspecified, uncomplicated; R10.2 Pelvic and perineal pain
CPT/HCPCS: 81001; 81025; 87491; 87591; 99282

== ENCOUNTER → 2023-11-30 | Outpatient (CLI) | payer BC, SELFPAY | END | disposition home or self-care (01) | PROVIDERS: Visit Provider Advanced Practice Midwife | DX: N89.8 Other specified noninflammatory disorders of vagina (principal) | CPT/HCPCS: 87081 ==

== ENCOUNTER → 2024-01-07 | Outpatient (CLI) | payer BC, SELFPAY | END | disposition home or self-care (01) | LOC: LABSPEC 16:54 | PROVIDERS: Referring Provider Advanced Practice Midwife; Visit Provider Advanced Practice Midwife | DX: N89.8 Other specified noninflammatory disorders of vagina (principal) | CPT/HCPCS: 87070; 87205 ==